=== PATIENT | male | born 1980 | race Caucasian/White ===

== ENCOUNTER 2020-12-29 08:18 | Inpatient (IN) | payer BC, OTHER ==
[~2020-12-29] VITALS: Ht 190.5 cm; Wt 105.6 kg
[2020-12-29] MEDS ORDERED: MIDAZOLAM 5 MG/5 ML (VERSED) VIAL ONE (08:23)
[2020-12-29] MEDS ORDERED: NS IV 1000 ML 1,000 ML ONE ×2 (08:34→09:38)
[2020-12-29] MEDS ORDERED: fentaNYL INJ 100 MCG/2 ML AMP ONE ×2 (08:38→11:08)
[2020-12-29 08:45] VITALS: BP 120/71
[2020-12-29] MEDS ORDERED: proPOfol 200 MG/20 ML (DIPRIVAN) VIAL IV ONE (09:00)
[2020-12-29] MEDS ORDERED: CEFEPIME INJECTION 1,000 MG in WATER (STERILE) FOR INJECTION 10 ML IV ONE (09:00)
[2020-12-29] MEDS ORDERED: DexMEDEtomidine 250 ML DRIP 250 ML IV SCH (09:00)
[2020-12-29] MEDS ORDERED: LACTATED RINGERS 1,000 ML IV ONE (09:00)
[2020-12-29] MEDS ORDERED: MIDAZOLAM 5 MG/5 ML (VERSED) VIAL IVP ONE (09:00)
[2020-12-29] MEDS ORDERED: VANCOMYCIN INJECTION 1,750 MG in NS IV 500 ML 500 ML IV ONE (09:00)
[2020-12-29 09:02] LABS: BASOPHILS % (AUTO) 0 % (0-10); EOSINOPHILS % (AUTO) 0 % (0-10); HEMATOCRIT 36 % (40-54); HEMOGLOBIN 11.8 g/dL (13.3-17.7); LYMPHOCYTES # (AUTO) 2.2 10^3/uL (1.0-4.0); LYMPHOCYTES % (AUTO) 14 % (12-44); MEAN CORPUSCULAR HEMOGLOBIN 29 pg (25-34); MEAN CORPUSCULAR HGB CONC 33 g/dL (32-36); MEAN CORPUSCULAR VOLUME 87 fL (80-99); MEAN PLATELET VOLUME 9.4 fL (9.0-12.2); MONOCYTES # (AUTO) 0.6 10^3/uL (0.0-1.0); MONOCYTES % (AUTO) 4 % (0-12); NEUTROPHILS # (AUTO) 12.1 10^3/uL (1.8-7.8); NEUTROPHILS % (AUTO) 75 % (42-75); PLATELET COUNT 267 10^3/uL (130-400); WHITE BLOOD COUNT 16.2 10^3/uL (4.3-11.0)
[2020-12-29 09:03] LABS: BILIRUBIN,URINE NEGATIVE (NEGATIVE); CLARITY,URINE SL CLOUDY; COLOR,URINE YELLOW; GLUCOSE, URINE (UA) NEGATIVE (NEGATIVE); KETONES,URINE NEGATIVE (NEGATIVE); LEUKOCYTE ESTERASE ,URINE NEGATIVE (NEGATIVE); NITRITE,URINE NEGATIVE (NEGATIVE); PH,URINE 7.5 (5-9); PROTEIN,URINE 2+ (NEGATIVE)
--- NOTE | 2020-12-29 09:03 | ED Respiratory ---
General Chief Complaint: Respiratory Problems Stated Complaint: RESP DISTRESS, COVID + Source: patient Exam Limitations: no limitations History of Present Illness Date Seen by Provider: Dec 29, 2020 Time Seen by Provider: 08:17 Initial Comments Patient presents ER by EMS from his home where his found him gasping for breath and blue. He was diagnosed with COVID-19 on Wednesday, 2 days ago. Patient gives no meaningful history as he is orotracheally intubated. EMS reports that when they arrived his blood sugar was in the 200s and he had a pulse and was agonal breathing so they gave him etomidate and succinylcholine and intubated the patient with an 8 oh ET tube at 23 at the lips. Put a OG tube in him because they were afraid he was trying to vomit. They said [facility]bey arrived before them and had done 2 rounds of CPR but had not put an AED on him. He had a pulse when they arrived. No shocks were ever given. No epinephrine was given. No other known medical history. adds he has no known medical history. He was seen at urgent care on Wednesday and diagnosed and started on azithromycin, dexamethasone and aspirin as well as an inhaler. He watched the kids open her Easter baskets and was doing okay but said he felt tired and was going to go lay down and when she went to check on him she noticed she was blue and breathing with much difficulty. She started compressions and then fire arrived shortly thereafter. She denies that he has had any fevers or vomiting. No other medical history. He had a right elbow fracture in college. He does not follow with a primary care doctor or take supplements. Allergies and Home Medications Allergies Coded Allergies: No Known Drug Allergies (Unverified , 12/29/20) Patient Home Medication List Home Medication List Reviewed: Yes Review of Systems Review of Systems Constitutional: see HPI (No review of systems since the patient has been orotracheally intubated) All Other Systems Reviewed Negative Unless Noted: No Past Ejwzgcx-Sksckr-Mtmgax Hx Patient Social History Alcohol Use: Denies Use Drug of Choice: Denies Smoking Status: Never a Smoker Physical Exam Vital Signs - First Documented 12/29/20 12/29/20 08:19 08:45 Temp 36.7 Pulse 52 Resp 36 B/P (MAP) 131/78 (95) Pulse Ox 97 O2 Delivery Ambu Bag FiO2 30 Capillary Refill : Height: '" Weight: lbs. oz. kg; BMI Method: General Appearance: WD/WN, severe distress Eyes: Bilateral Eye Normal Inspection, Bilateral Eye Other (Bilateral TMs 2 mm nonreactive to light or accommodation) HEENT: PERRL/EOMI, TMs normal, other (Orotracheally intubated with dry oral mucosa) Neck: full range of motion, supple, normal inspection Respiratory: lungs clear, normal breath sounds, respiratory distress Cardiovascular: normal peripheral pulses, regular rate, rhythm, no edema, no murmur, tachycardia Gastrointestinal: soft, abnormal bowel sounds (Absent) Extremities: normal range of motion, normal inspection, no pedal edema, slow capillary refill Neurologic/Psychiatric: other (The cerebral posturing. GCS 3 T) Skin: normal color, warm/dry Focused Exam Sepsis Stage: Severe Sepsis Possible Source: Pulmonary Lactate Level 12/29/20 08:45: Lactic Acid Level 2.94*H Time of Focused Exam: 10:03 Respiratory: Lungs Clear, No Accessory Muscle Use, Respiratory Distress (Ventilated using an orotracheal intubated tube) Cardiovascular: Regular Rate, Rhythm (Heart rate in the 50s), Normal Peripheral Pulses Capillary Refill: Less Than 3 Seconds Peripheral Pulses: 2+ Radial Pulses (R), 2+ Radial Pulses (L) Skin: normal color, warm/dry Lactic Acid Level Laboratory Tests Test 12/29/20 08:45 Lactic Acid Level 2.94 MMOL/L (0.50-2.00) *H Within 3hrs of presentation: Admin fluids (Working on the second liter and then will reevaluate for the third liter. Because of Covid we are being cautious with IV fluids), Admin ABX, Blood cultures prior to ABX's, Focus exam, Lactate level, Other (Precedex was stopped because of bradycardia) Progress/Results/Core Measures Suspected Sepsis SIRS Temperature: Pulse: Respiratory Rate: Laboratory Tests 12/29/20 08:45: White Blood Count 16.2H Blood Pressure / Mean: 12/29/20 08:45: Lactic Acid Level 2.94*H Laboratory Tests 12/29/20 08:45: Creatinine 0.86, INR Comment 1.1, Platelet Count 267, Total Bilirubin 0.3 Results/Orders Lab Results Laboratory Tests Test 12/29/20 08:45 4/4/21 09:10 Range/Units White Blood Count 16.2 H 4.3-11.0 10^3/uL Red Blood Count 4.14 L 4.30-5.52 10^6/uL Hemoglobin 11.8 L 13.3-17.7 g/dL Hematocrit 36 L 40-54 % Mean Corpuscular Volume 87 80-99 fL Mean Corpuscular Hemoglobin 29 25-34 pg Mean Corpuscular Hemoglobin Concent 33 32-36 g/dL Red Cell Distribution Width 12.8 10.0-14.5 % Platelet Count 267 130-400 10^3/uL Mean Platelet Volume 9.4 9.0-12.2 fL Immature Granulocyte % (Auto) 7 % Neutrophils (%) (Auto) 75 42-75 % Lymphocytes (%) (Auto) 14 12-44 % Monocytes (%) (Auto) 4 0-12 % Eosinophils (%) (Auto) 0 0-10 % Basophils (%) (Auto) 0 0-10 % Neutrophils # (Auto) 12.1 H 1.8-7.8 10^3/uL Lymphocytes # (Auto) 2.2 1.0-4.0 10^3/uL Monocytes # (Auto) 0.6 0.0-1.0 10^3/uL Eosinophils # (Auto) 0.0 0.0-0.3 10^3/uL Basophils # (Auto) 0.0 0.0-0.1 10^3/uL Immature Granulocyte # (Auto) 1.2 H 0.0-0.1 10^3/uL Neutrophils % (Manual) 71 % Lymphocytes % (Manual) 13 % Monocytes % (Manual) 0 % Eosinophils % (Manual) 0 % Basophils % (Manual) 0 % Band Neutrophils 16 % Blood Morphology Comment NORMAL Prothrombin Time 14.3 12.2-14.7 SEC INR Comment 1.1 0.8-1.4 Activated Partial Thromboplast Time 32 24-35 SEC D-Dimer 17.76 H 0.00-0.49 UG/ML Urine Color YELLOW Urine Clarity SL CLOUDY Urine pH 7.5 5-9 Urine Specific [place] 1.025 H 1.016-1.022 Urine Protein 2+ H NEGATIVE Urine Glucose (UA) NEGATIVE NEGATIVE Urine Ketones NEGATIVE NEGATIVE Urine Nitrite NEGATIVE NEGATIVE Urine Bilirubin NEGATIVE NEGATIVE Urine Urobilinogen 1.0 < = 1.0 MG/DL Urine Leukocyte Esterase NEGATIVE NEGATIVE Urine RBC (Auto) NEGATIVE NEGATIVE Urine RBC 0-2 /HPF Urine WBC NONE /HPF Urine Squamous Epithelial Cells NONE /HPF Urine Crystals NONE /LPF Urine Bacteria NEGATIVE /HPF Urine Casts PRESENT /LPF Urine Hyaline Casts 2-5 H /LPF Urine Granular Casts RARE /LPF Urine Mucus SMALL H /LPF Urine Culture Indicated CULTURE PENDING Sodium Level 143 135-145 MMOL/L Potassium Level 3.1 L 3.6-5.0 MMOL/L Chloride Level 109 H 98-107 MMOL/L Carbon Dioxide Level 21 21-32 MMOL/L Anion Gap 13 5-14 MMOL/L Blood Urea Nitrogen 17 7-18 MG/DL Creatinine 0.86 0.60-1.30 MG/DL Estimat Glomerular Filtration Rate > 60 BUN/Creatinine Ratio 20 Glucose Level 173 H 70-105 MG/DL Lactic Acid Level 2.94 *H 0.50-2.00 MMOL/L Calcium Level 7.7 L 8.5-10.1 MG/DL Corrected Calcium 8.2 L 8.5-10.1 MG/DL Total Bilirubin 0.3 0.1-1.0 MG/DL Aspartate Amino Transf (AST/SGOT) 647 H 5-34 U/L Alanine Aminotransferase (ALT/SGPT) 483 H 0-55 U/L Alkaline Phosphatase 88 40-136 U/L Troponin I < 0.028 <0.028 NG/ML C-Reactive Protein High Sensitivity 0.52 H 0.00-0.50 MG/DL Total Protein 6.2 L 6.4-8.2 GM/DL Albumin 3.4 3.2-4.5 GM/DL Triglycerides Level 103 <150 MG/DL Procalcitonin 0.01 <0.10 NG/ML Urine Opiates Screen NEGATIVE NEGATIVE Urine Oxycodone Screen NEGATIVE NEGATIVE Urine Methadone Screen NEGATIVE NEGATIVE Urine Propoxyphene Screen NEGATIVE NEGATIVE Urine Barbiturates Screen NEGATIVE NEGATIVE Ur Tricyclic Antidepressants Screen NEGATIVE NEGATIVE Urine Phencyclidine Screen NEGATIVE NEGATIVE Urine Amphetamines Screen NEGATIVE NEGATIVE Urine Methamphetamines Screen NEGATIVE NEGATIVE Urine Benzodiazepines Screen NEGATIVE NEGATIVE Urine Cocaine Screen NEGATIVE NEGATIVE Urine Cannabinoids Screen NEGATIVE NEGATIVE Blood Gas Puncture Site LR Blood Gas Patient Temperature 98.1 Arterial Blood pH 7.33 *L 7.37-7.43 Arterial Blood Partial Pressure CO2 46 H 35-45 MMHG Arterial Blood Partial Pressure O2 69 L 79-93 MMHG Arterial Blood HCO3 24 23-27 MMOL/L Arterial Blood Total CO2 25.1 21.0-31.0 MMOL/L Arterial Blood Oxygen Saturation 90 L 94-100 % Arterial Blood Base Excess -1.5 -2.5-2.5 MMOL/L Ricci Test YES-POS Blood Gas Ventilator Setting YES Blood Gas Inspired Oxygen 21% Micro Results Microbiology 12/29/20 Influenza Types A,B Antigen (LEXX) - Final, Complete My Orders Orders - DICKSON GANT Midazolam Injection (Versed Injection) (12/29/20 08:23) Ns Iv 1000 Ml (Sodium Chloride 0.9%) (12/29/20 08:34) Fentanyl Inj (Sublimaze Injection) (12/29/20 08:38) Chest 1 View, Ap/Pa Only (12/29/20 08:53) Dexamethasone Injection (Decadron Inje (12/29/20 08:47) Cbc With Automated Diff (12/29/20 08:54) Comprehensive Metabolic Panel (12/29/20 08:54) Blood Culture (12/29/20 08:54) Urinalysis (12/29/20 08:54) Urine Culture (12/29/20 08:54) Protime With Inr (12/29/20 08:54) Partial Thromboplastin Time (12/29/20 08:54) Ed Iv/Invasive Line Start (12/29/20 08:54) Ed Iv/Invasive Line Start (12/29/20 08:54) Ekg Tracing (12/29/20 08:54) Troponin I (12/29/20 08:54) Vital Signs Adult Sepsis Patie Q15M (12/29/20 08:54) O2 (12/29/20 08:54) Remove Rings In Anticipation O (12/29/20 08:54) Lactic Acid Analyzer (12/29/20 08:54) Influenza A And B Antigens (12/29/20 08:54) Lactated Ringers (Lr 1000 Ml Iv Solution (12/29/20 09:00) Cefepime Injection (Maxipime Injection) (12/29/20 09:00) Vancomycin Injection (Vancomycin Injecti (12/29/20 09:00) Midazolam Injection (Versed Injection) (12/29/20 09:00) Propofol Injection (Diprivan Injection) (12/29/20 09:00) Dexamethasone Injection (Decadron Inje (12/29/20 09:00) Dexmedetomidine 250 Ml Drip (Precedex Dr (12/29/20 09:00) Covid-19 External Lab Results (12/29/20 08:55) Drug Screen Stat (Urine) (12/29/20 08:57) Propofol Drip (Icu) (Diprivan Drip (Icu) (12/29/20 09:15) Sedation Communication Q48H (12/29/20 09:01) Triglycerides (12/29/20 09:01) Fibrin Degradation Products (12/29/20 09:07) Procalcitonin (Pct) (12/29/20 09:07) Hs C Reactive Protein (12/29/20 09:07) Arterial Blood Gas (12/29/20 09:09) Manual Differential (12/29/20 08:45) Ns Iv 1000 Ml (Sodium Chloride 0.9%) (12/29/20 09:38) Ct Angio Chest W (12/29/20 09:53) Ct Head Wo (12/29/20 09:53) Medications Given in ED Current Medications Medications Dose Ordered Sig/Jaquelin Route Start Time Stop Time Status Last Admin Dose Admin Cefepime HCl 1000 mg/Sterile Water 10 ml @ 200 mls/hr ONCE ONCE IV 12/29/20 09:00 12/29/20 09:02 DC 12/29/20 10:05 200 MLS/HR Dexamethasone Sodium Phosphate 10 mg ONCE ONCE IV 12/29/20 09:00 12/29/20 09:01 DC 12/29/20 09:06 10 MG Fentanyl Citrate 100 mcg STK-MED ONCE .ROUTE 12/29/20 08:38 12/29/20 08:46 DC 12/29/20 09:07 100 MCG Lactated Ringer's 1,000 ml @ 0 mls/hr Q0M ONCE IV 12/29/20 09:00 12/29/20 09:01 DC 12/29/20 09:08 999 MLS/HR Midazolam HCl 5 mg ONCE ONCE IVP 12/29/20 09:00 12/29/20 09:01 DC 12/29/20 09:06 5 MG Sodium Chloride 1,000 ml @ ud STK-MED ONCE .ROUTE 12/29/20 08:34 12/29/20 08:42 DC 12/29/20 09:52 999 MLS/HR Vancomycin HCl 1750 mg/Sodium Chloride 500 ml @ 258 mls/hr ONCE ONCE IV 12/29/20 09:00 12/29/20 10:56 DC 12/29/20 09:18 258 MLS/HR Vital Signs/I&O 12/29/20 12/29/20 12/29/20 12/29/20 08:19 08:45 09:10 09:37 Temp 36.7 Pulse 52 48 Resp 36 B/P (MAP) 131/78 (95) 138/118 Pulse Ox 97 98 100 O2 Delivery Ambu Bag Mechanical Ventilator FiO2 30 30 Capillary Refill : Progress Note #1: Time: 09:06 Progress Note Sepsis, Covid, broad-spectrum antibiotics and Decadron 10 mg. Patient is afebrile at this time. Progress Note #2: Time: 09:47 Progress Note Because of the ABG we increased the tidal volume to 475 and rate 20. FiO2 was increased to 40%. The lactate prompted us to give a total of 3 L. On ultrasound his superior vena cava and IJ were flaccid. Progress Note #3: Time: 11:10 Progress Note While the patient was in CT on his way to ICU a CODE BLUE was called. By the time this provider responded to the CAT scan room patient had return of spontaneous circulation. Suspect he had bradycardia down and was now in the 40s sinus bradycardia. We got a good blood pressure and sent the patient to the ICU with instructions to get an ABG and EKG on arrival. Dr. Sotelo presented to the CAT scan and we discussed the case suspecting that this is a Covid related effect. No evidence on first pass of a pulmonary embolism or bleed in the head. Communication was made with the and the patient's parents by phone. ECG Initial ECG Impression Date: Dec 29, 2020 Initial ECG Impression Time: 08:31 Initial ECG Rate: 59 Initial ECG Rhythm: Normal Sinus Initial ECG Intervals: Normal Initial ECG Impression: Normal Initial ECG Comparisson: No Previous ECG Available Comment Normal sinus rhythm without clinically relevant ST elevation or depression. Diagnostic Imaging Diagonstic Imaging: Xray Plain Films/CT/US/NM/MRI: chest Comments Chest x-ray with bilateral small patchy groundglass appearance consistent with pneumonia atypical possibly Covid. There is a central catheter in good position over the shadow of the right IJ terminating in the superior vena cava at the level of the right atria. There is an NG tube which appears to be in good position. No evidence of pneumothorax. Reviewed: Reviewed by [place] Diagonstic Imaging: CT Plain Films/CT/US/NM/MRI: head Comments [facility], [place] NAME: DANIELA GONZALEZ [facility] REC#: [id number] PT STATUS: ADM IN : 1980 PHYSICIAN: DICKSON GANT MD ADMIT DATE: 12/29/20/ICU Draft Date of Exam:12/29/20 CT HEAD WO EXAMINATION: CT head without contrast. TECHNIQUE: Multiple contiguous axial images were obtained through the brain without the use of intravenous contrast. All CT scans use one or more of the following dose optimizing techniques: automated exposure control, MA and/or KvP adjustment based on a patient size and exam type, or iterative reconstruction. HISTORY: Respiratory arrest COMPARISON: None available. FINDINGS: The ross-white matter differentiation is normal. No mass effect or midline shift. The ventricles are normal in size and configuration. Basilar cisterns are patent. There are no intra- or extra-axial fluid collections. There is no intracranial hemorrhage. The orbits are normal. There is mild bilateral maxillary sinus mucosal disease. Mastoid air cells are clear. No soft tissue abnormality is seen. No osseus lesions or fractures are seen. IMPRESSION: 1. No acute intracranial abnormality. Dictated on workstation # [id number] Dict: 12/29/20 1122 Trans: 12/29/20 1125 [facility] [id number] Interpreted by: SHAI SAAVEDRA MD Electronically signed by: Reviewed: Reviewed by [place] Diagonstic Imaging: CT Plain Films/CT/US/NM/MRI: chest Comments [facility] [place] NAME: DANIELA GONZALEZ [facility] REC#: [id number] PT STATUS: ADM IN : 1980 PHYSICIAN: DICKSON GANT MD ADMIT DATE: 12/29/20/ICU Draft Date of Exam:12/29/20 CT ANGIO CHEST W EXAMINATION: CT angiography of the chest. TECHNIQUE: Contrast enhanced thin section helical images were obtained through the chest with intravenous contrast timed for the optimal opacification of the arterial structures per CTA protocol. Post-processing, reconstructions and interpretation of angiographic images of the vessels was performed. 3D MIP reconstructions were performed and reviewed. All CT scans use one or more of the following dose optimizing techniques: automated exposure control, MA and/or KvP adjustment based on a patient size and exam type, or iterative reconstruction. HISTORY: Shortness of breath, respiratory arrest. COMPARISON: None available. FINDINGS: There is no pulmonary embolism. There are patchy areas of groundglass in the lungs, right greater than left, which are mild in severity. There is mild dependent atelectasis. No consolidation. The patient is intubated and a gastric tube is present. A right internal jugular catheter is present. No pleural effusion. No pneumothorax. No suspicious nodules. There is no axillary or supraclavicular lymphadenopathy. There are prominent hilar lymph nodes measuring 10 mm and smaller, likely reactive. Left ventricle is dilated. There are no coronary artery calcifications. No pericardial effusion. Aorta is normal in caliber. Limited views of the upper abdomen are unremarkable. There are no suspicious osseus lesions. IMPRESSION: 1. Patchy groundglass in the lungs, right greater than left, which are mild in severity and likely related to an infection. 2. No pulmonary embolism. Dictated on workstation # [id number] Dict: 12/29/20 1116 Trans: 12/29/20 1126 [facility] [id number] Interpreted by: SHAI SAAVEDRA MD Electronically signed by: Reviewed: Reviewed by Me Critical Care Note Critical Care Start Time: 08:17 Stop Time: 09:30 Progress When the patient arrived we rapidly got him onto a ventilator at 450 tidal volume, 18 respiratory, PEEP of 5 and 100% FiO2. His end-tidal CO2 was 38 so we weaned his oxygen down to 21% and he maintains a sat of 97%. Labs, urine, septic work-up initiated. We kept the liter of fluids going from EMS and initiated propofol and gave him 5 mg of Versed so he can get a central line placed. Because of the posturing and movement we had to give him a Precedex drip and turned up his propofol to 60 mL/hr. central line was initiated and with the OG tube to suction low intermittent. Departure Communication (Admissions) Time/Spoke to Admitting Phy: 09:08 Dr. Abbott agrees to take the patient to the ICU. Broad-spectrum antibiotics and documented. Time/Spoke to Consulting Phy: 09:48 Discussed the case with eICU. They would like a CT of the head and CT angiogram chest. Impression Primary Impression: COVID-19 Additional Impressions: Sepsis Qualified Codes: A41.9 - Sepsis, unspecified organism; R65.20 - Severe sepsis without septic shock; J96.01 - Acute respiratory failure with hypoxia Acute respiratory failure with hypoxia and hypercapnia Disposition: ADMITTED INPATIENT Condition: Critical Admissions Decision to Admit Reason: Admit from ER (General) Decision to Admit/Date: Dec 29, 2020 Time/Decision to Admit Time: 09:00 Departure-Patient Inst. Referrals: ALDA HARMON MD (PCP/Family) Primary Care Physician DICKSON GANT Dec 29, 2020 09:03
[2020-12-29 09:13] LABS: INR 1.1 (0.8-1.4); PROTHROMBIN TIME PATIENT 14.3 SEC (12.2-14.7)
[2020-12-29 09:15] LABS: AMPHETAMINE SCREEN, URINE NEGATIVE (NEGATIVE); BARBITURATE SCREEN URINE NEGATIVE (NEGATIVE); BENZODIAZEPINES SCREEN URINE NEGATIVE (NEGATIVE); CANNABINOID SCREEN, URINE NEGATIVE (NEGATIVE); COCAINE SCREEN URINE NEGATIVE (NEGATIVE); METHADONE STAT NEGATIVE (NEGATIVE); METHAMPHETAMINE SCREEN URINE S NEGATIVE (NEGATIVE); OPIATE SCREEN URINE NEGATIVE (NEGATIVE); OXYCODONE STAT NEGATIVE (NEGATIVE); PROPOXYPHENE STAT NEGATIVE (NEGATIVE); TRICYCLIC ANTIDEPRESSANTS SCRE NEGATIVE (NEGATIVE)
[2020-12-29] MEDS ORDERED: PROPOFOL DRIP (ICU) 100 ML IV SCH ×2 (09:15→11:45)
[2020-12-29 09:18] LABS: BAND NEUTROPHILS 16 %; BASOPHILS % (MANUAL) 0 %; EOSINOPHILS % (MANUAL) 0 %; LYMPHOCYTES % (MANUAL) 13 %; MONOCYTES % (MANUAL) 0 %; NEUTROPHILS % (MANUAL) 71 %; RBC MORPH NORMAL
[2020-12-29 09:19] LABS: ABG BASE EXCESS -1.5 MMOL/L (-2.5-2.5); ABG OXYGEN SATURATION 90 % (94-100); ABG PCO2 46 MMHG (35-45); ABG PO2 69 MMHG (79-93); ABG TCO2 25.1 MMOL/L (21.0-31.0)
[2020-12-29 09:20] LABS: BACTERIA,URINE NEGATIVE /HPF; GRANULAR CASTS,URINE RARE /LPF; RBC,URINE 0-2 /HPF
[2020-12-29 09:21] LABS: ABG PH 7.33 (7.37-7.43); ALLENS TEST YES-POS
[2020-12-29 09:22] LABS: ALANINE AMINOTRANSFERASE 483 U/L (0-55); ALBUMIN 3.4 GM/DL (3.2-4.5); ALKALINE PHOSPHATASE 88 U/L (40-136); BILIRUBIN,TOTAL 0.3 MG/DL (0.1-1.0); BUN/CREATININE RATIO 20; CALCIUM 7.7 MG/DL (8.5-10.1); CARBON DIOXIDE 21 MMOL/L (21-32); CHLORIDE 109 MMOL/L (98-107); CREATININE SERUM 0.86 MG/DL (0.60-1.30); GFR ESTIMATED > 60; GLUCOSE 173 MG/DL (70-105); POTASSIUM 3.1 MMOL/L (3.6-5.0); SODIUM 143 MMOL/L (135-145); TOTAL PROTEIN 6.2 GM/DL (6.4-8.2)
[2020-12-29 09:22] LABS: INSPIRED O2 21%; VENTILATOR YES
[2020-12-29 09:23] LABS: PATIENT TEMP 98.1
--- NOTE | 2020-12-29 09:42 | Diagnostic Imaging Report ---
INDICATION: Respiratory failure EXAM: Portable chest at 8:52 AM FINDINGS: There is an ET tube projecting over the trachea. NG tube enters the stomach. Right IJ central line tip projects over the SVC. Heart size and pulmonary vascularity are normal. Lungs are clear. There are no effusions or pneumothoraces. IMPRESSION: Negative chest. Dictated by: Dictated on workstation # [id number]
[2020-12-29] MEDS ORDERED: HOLD METFORMIN - RECEIVED CONTRAST 20 ML VIAL IV SCH (10:00)
[2020-12-29] MEDS ORDERED: NS 100 ML (IVPB) BAG IV ONE (10:00)
[2020-12-29] MEDS ORDERED: IOHEXOL 350 MG/ML 100 ML (OMNIPAQUE 350) VIAL IV ONE (10:00)
[2020-12-29] MEDS ORDERED: CATHETER FLUSH 10 ML SYR IV PRN (10:00)
[2020-12-29] MEDS ORDERED: fentaNYL INJ 100 MCG/2 ML AMP IVP ONE (11:15)
--- NOTE | 2020-12-29 11:25 | Diagnostic Imaging Report ---
EXAMINATION: CT head without contrast. TECHNIQUE: Multiple contiguous axial images were obtained through the brain without the use of intravenous contrast. All CT scans use one or more of the following dose optimizing techniques: automated exposure control, MA and/or KvP adjustment based on a patient size and exam type, or iterative reconstruction. HISTORY: Respiratory arrest COMPARISON: None available. FINDINGS: The ross-white matter differentiation is normal. No mass effect or midline shift. The ventricles are normal in size and configuration. Basilar cisterns are patent. There are no intra- or extra-axial fluid collections. There is no intracranial hemorrhage. The orbits are normal. There is mild bilateral maxillary sinus mucosal disease. Mastoid air cells are clear. No soft tissue abnormality is seen. No osseus lesions or fractures are seen. IMPRESSION: 1. No acute intracranial abnormality. Dictated by: Dictated on workstation # [id number]
--- NOTE | 2020-12-29 11:26 | Diagnostic Imaging Report ---
EXAMINATION: CT angiography of the chest. TECHNIQUE: Contrast enhanced thin section helical images were obtained through the chest with intravenous contrast timed for the optimal opacification of the arterial structures per CTA protocol. Post-processing, reconstructions and interpretation of angiographic images of the vessels was performed. 3D MIP reconstructions were performed and reviewed. All CT scans use one or more of the following dose optimizing techniques: automated exposure control, MA and/or KvP adjustment based on a patient size and exam type, or iterative reconstruction. HISTORY: Shortness of breath, respiratory arrest. COMPARISON: None available. FINDINGS: There is no pulmonary embolism. There are patchy areas of groundglass in the lungs, right greater than left, which are mild in severity. There is mild dependent atelectasis. No consolidation. The patient is intubated and a gastric tube is present. A right internal jugular catheter is present. No pleural effusion. No pneumothorax. No suspicious nodules. There is no axillary or supraclavicular lymphadenopathy. There are prominent hilar lymph nodes measuring 10 mm and smaller, likely reactive. Left ventricle is dilated. There are no coronary artery calcifications. No pericardial effusion. Aorta is normal in caliber. Limited views of the upper abdomen are unremarkable. There are no suspicious osseus lesions. IMPRESSION: 1. Patchy groundglass in the lungs, right greater than left, which are mild in severity and likely related to an infection. 2. No pulmonary embolism. Dictated by: Dictated on workstation # [id number]
[2020-12-29 11:27] LABS: ABG BASE EXCESS -2.9 MMOL/L (-2.5-2.5); ABG OXYGEN SATURATION 99 % (94-100); ABG PCO2 39 MMHG (35-45); ABG PH 7.37 (7.37-7.43); ABG PO2 139 MMHG (79-93); ABG TCO2 22.9 MMOL/L (21.0-31.0)
[2020-12-29 11:28] LABS: ALLENS TEST YES-POS; INSPIRED O2 100%; PATIENT TEMP 36.5; VENTILATOR YES
[2020-12-29] MEDS ORDERED: ONDANSETRON 4 MG/2 ML (SDV) Z0FRAN IV PRN (11:30)
[2020-12-29] MEDS ORDERED: ACETAMINOPHEN 325 MG TABLET PO PRN (11:30)
[2020-12-29] MEDS ORDERED: ACETAMINOPHEN 650 MG SUPP (TYLENOL) PR PRN (11:30)
[2020-12-29] MEDS ORDERED: fentaNYL INJ 100 MCG/2 ML AMP IV STA (11:32)
[2020-12-29] MEDS ORDERED: MAG SULFATE 2 GM/50 ML IV PRE-MIX BAG IV STA (11:32)
[2020-12-29] MEDS ORDERED: LORazepam INJ 2 MG/ML (ATIVAN) VIAL IV STA (11:32)
[2020-12-29] MEDS ORDERED: ROCURONIUM 10 MG/ML 5 ML SYRINGE IV STA (11:32)
[2020-12-29] MEDS ORDERED: ENOXAPARIN 100 MG/1 ML (LOVENOX) SYR SC SCH (11:45)
[2020-12-29] MEDS ORDERED: LORazepam INJECTION FOR DRIP 20 MG in D5W 100 ML IVPB 90 ML IV SCH ×2 (11:45→14:30)
[2020-12-29] MEDS ORDERED: SODIUM PHOSPHATE INJ 30 MM in NS (IVPB) 250 ML IV PRN (11:45)
[2020-12-29] MEDS ORDERED: fentaNYL INJ 1,250 MCG in NS (IVPB) 225 ML IV SCH (11:45)
[2020-12-29] MEDS ORDERED: ROCURONIUM 50 MG/5 ML (ZEMURON) VIAL IV PRN (11:45)
[2020-12-29] MEDS ORDERED: LACRI-LUBE OPTHALMIC OINT 3.5 GM TUBE OU PRN (11:45)
[2020-12-29] MEDS ORDERED: proPOfol 500 MG/50 ML (DIPRIVAN) VIAL IV ONE (12:00)
--- NOTE | 2020-12-29 12:10 | Diagnostic Imaging Report ---
EXAMINATION: Chest 1 view HISTORY: Post code, intubation. COMPARISON: 12/29/2020 FINDINGS: Endotracheal tube tip terminates 6 cm above the odalys. Gastric tube tip terminates below the field of view. Right internal jugular central venous catheter tip terminates in the superior vena cava. Defibrillator pads are present. There is mild atelectasis in the lungs. No pleural effusion or pneumothorax. Heart size is normal. IMPRESSION: 1. Mild atelectasis, otherwise clear lungs. Dictated by: Dictated on workstation # [id number]
--- NOTE | 2020-12-29 12:16 | History & Physical-Hospitalist ---
History of Present Illness HPI/Chief Complaint Cory Dukes is a 40 year old male with no known past medical history who presented after being found unresponsive by his at home. He was diagnosed with COVID-19 a couple days prior, on Good Wednesday. His children were having an Easter egg castaneda on Wednesday and he was feeling tired so he went inside to lay down. When his went to check on him, she found him he was blue. She began CPR and EMS was called. The fire department was the first on the scene and continued CPR. When the ambulance arrived they were able to detect a pulse. He was intubated in the field and transferred to [facility] Emergency Room. The workup was essentially unremarkable other than a significantly elevated d-dimer. He was sent to the CT scanner on his way up to the ICU and he again had a CODE BLUE. He was suffering from severe bradycardia at that time. ROSC was obtained prior to any compressions or medications being given. This was when I first evaluated the patient and he was transferred up to the ICU at that time. I quickly scanned the CT scans of his head and chest and did not visualize any large/saddle pulmonary emboli or apparent stroke. Source: RN/MD Exam Limitations: clinical condition Date Seen 12/29/20 Time Seen by a Provider: 11:30 Attending Physician Sasha Limon MD PCP Stacey James MD Referring Physician Date of Admission Dec 29, 2020 at 09:55 Home Medications & Allergies Home Medications Reviewed patient Home Medication Reconciliation performed by pharmacy medication reconciliations mold technician and/or nursing. Patients Allergies have been reviewed. Allergies Allergies Coded Allergies No Known Drug Allergies (Unverified12/29/20) Patient Social History Smoking Status: Never a Smoker Past Medical History none Family Medical History Family Hx: unknown Review of Systems ROS-Unable to Obtain: intubated Constitutional: see HPI Physical Exam Physical Exam Vital Signs Vital Signs - First Documented 12/29/20 12/29/20 12/29/20 08:19 08:45 11:15 Temp 36.7 Pulse 52 Resp 36 B/P (MAP) 131/78 (95) Pulse Ox 97 O2 Delivery Ambu Bag O2 Flow Rate 100.00 FiO2 30 Capillary Refill : Less Than 3 Seconds Height, Weight, BMI Height: '" Weight: lbs. oz. kg; 24.00 BMI Method: General Appearance: No Apparent Distress, WD/WN, Other (intubated and sedated) HEENT: Other (endotracheal tube in place) Respiratory: Lungs Clear, No Respiratory Distress, Other (intubated and mechanically ventilated) Cardiovascular: No Murmur, Normal Peripheral Pulses, Bradycardia (regular rhythm) Gastrointestinal: Normal Bowel Sounds, Soft Extremity: Normal Capillary Refill, Normal Inspection, No Pedal Edema Neurologic/Psychiatric: Other (sedated) Skin: Normal Color, Warm/Dry Results Results/Procedures Labs Laboratory Tests 12/30/20 23:39 12/30/20 23:40 12/31/20 00:22 12/31/20 02:00 12/31/20 05:00 12/31/20 12:45 12/31/20 17:30 01/01/21 03:05 01/01/21 08:07 01/01/21 15:45 Patient resulted labs reviewed. Imaging: Reviewed Imaging Films, Reviewed Imaging Report Assessment/Plan Admission Diagnosis Cardiac arrest Admission Status: Inpatient Order (span 2 midnights) Reason for Inpatient Admission: Cardiac arrest requiring ventilator Assessment and Plan Cardiac arrest Acute respiratory failure due to COVID-19 Endotracheally intubated Hypercoagulable state associated with COVID-19 s/p cardiac arrest x2 Awaiting official reads on CT head and chest Pulmonology/TeleICU consulted, appreciate assistance Weaning sedation to assess for responsiveness Considering [facility] therapeutic hypothermia post-cardiac arrest Started on Decadron Begin therapeutic Lovenox if CT head negative Repeat ABG Ventilator settings per eICU Critical Care Critically Ill Patient Diagnosis/Problems Diagnosis/Problems (1) Cardiac arrest Status: Acute (2) Acute respiratory failure due to COVID-19 Status: Acute (3) Hypercoagulable state associated with COVID-19 Status: Acute Supervisory-Addendum Brief Verification & Attestation Participated in pt care: other Personally performed: other Care discussed with: other Procedures: n/a, other n/a SASHA LIMON MD Dec 29, 2020 12:16
[2020-12-29 12:22] LABS: BASOPHILS % (AUTO) 0 % (0-10); EOSINOPHILS % (AUTO) 0 % (0-10); HEMATOCRIT 37 % (40-54); HEMOGLOBIN 12.1 g/dL (13.3-17.7); LYMPHOCYTES # (AUTO) 0.7 10^3/uL (1.0-4.0); LYMPHOCYTES % (AUTO) 9 % (12-44); MEAN CORPUSCULAR HEMOGLOBIN 29 pg (25-34); MEAN CORPUSCULAR HGB CONC 33 g/dL (32-36); MEAN CORPUSCULAR VOLUME 88 fL (80-99); MEAN PLATELET VOLUME 9.3 fL (9.0-12.2); MONOCYTES # (AUTO) 0.3 10^3/uL (0.0-1.0); MONOCYTES % (AUTO) 4 % (0-12); NEUTROPHILS # (AUTO) 6.8 10^3/uL (1.8-7.8); NEUTROPHILS % (AUTO) 84 % (42-75); PLATELET COUNT 237 10^3/uL (130-400); WHITE BLOOD COUNT 8.1 10^3/uL (4.3-11.0)
[2020-12-29] MEDS: PROPOFOL DRIP (ICU) 100 ML IV SCH ×3 (12:25→20:09)
[2020-12-29 12:44] LABS: ALANINE AMINOTRANSFERASE 481 U/L (0-55); ALBUMIN 3.4 GM/DL (3.2-4.5); ALKALINE PHOSPHATASE 83 U/L (40-136); AMYLASE 61 U/L (25-125); BILIRUBIN,DIRECT 0.2 MG/DL (0.0-0.3); BILIRUBIN,INDIRECT 0.2 MG/DL; BILIRUBIN,TOTAL 0.4 MG/DL (0.1-1.0); CREATINE KINASE 62 U/L (30-200); LIPASE 32 U/L (8-78); MAGNESIUM 1.8 MG/DL (1.6-2.4); TOTAL PROTEIN 6.2 GM/DL (6.4-8.2); TRIGLYCERIDES 95 MG/DL (<150)
[2020-12-29] MEDS: LACTATED RINGERS 1,000 ML IV SCH ×3 (12:50→20:01)
[2020-12-29 12:55] LABS: FIBRINOGEN 319 MG/DL (221-496); INR 1.1 (0.8-1.4); PARTIAL THROMBOPLASTIN TIME 30 SEC (24-35); PROTHROMBIN TIME PATIENT 14.6 SEC (12.2-14.7)
[2020-12-29 13:06] LABS: FIBRIN DEGRADATION PRODUCTS > 20.00 UG/ML (0.00-0.49)
[2020-12-29 13:09] LABS: PHOSPHORUS 0.8 MG/DL (2.3-4.7)
--- NOTE | 2020-12-29 13:10 | Anesthesia-Procedure Note ---
Procedures/Interventions Procedure Start/Stop/Diagnosis Date of Procedure: Dec 29, 2020 Start Time: 12:50 Stop Time: 13:00 Arterial Line Arterial Line Catheter: 20G Type: Radial Location: Right Procedure: prepped, draped in sterile fashion, 1% lidocaine used to numb region, good wave-form was obtained, patient tolerated procedure well, no immediate complications, post procedure area cleaned, post procedure dressing applied SABIHA LOPES CRNA Dec 29, 2020 13:10
[2020-12-29] MEDS: MAGNESIUM SULFATE DRIP 500 ML IV SCH (13:14)
[2020-12-29] MEDS: POTASSIUM CL 10MEQ/50ML IVPB 50 ML IV SCH ×4 (13:32→16:33)
[2020-12-29] MEDS: LACRI-LUBE OPTHALMIC OINT 3.5 GM TUBE OU SCH ×3 (13:33→23:06)
[2020-12-29] MEDS: CEFEPIME 1,000 MG/SWFI 10 ML IV PUSH IV SCH ×6 (13:49→23:07)
[2020-12-29] MEDS ORDERED: NS IV NR (14:00)
[2020-12-29] MEDS ORDERED: ENOXAPARIN 60 MG/0.6 ML (LOVENOX) SYR SC ONE (14:00)
[2020-12-29] MEDS ORDERED: CALCIUM CHLORIDE IV NR (14:00)
[2020-12-29] MEDS ORDERED: CALCIUM CHLORIDE 1 GM/10 ML (IMS) SYR IV ONE (14:00)
[2020-12-29] MEDS: busPIRone 15 MG (BUSPAR) TABLET GT SCH ×2 (14:10→21:07)
[2020-12-29] MEDS ORDERED: LORazepam INJ 2 MG/ML (ATIVAN) VIAL ONE (14:11)
[2020-12-29] MEDS ORDERED: LORazepam INJ 2 MG/ML (ATIVAN) VIAL IVP PRN (14:30)
[2020-12-29 14:50] VITALS: BP 116/81
[2020-12-29] MEDS: LORazepam INJECTION FOR DRIP 20 MG in D5W 100 ML IVPB 90 ML IV SCH ×2 (15:13→20:11)
[2020-12-29] MEDS: fentaNYL 1,250 MCG/NS 250 ML DRIP IV SCH ×2 (15:39→18:19)
[2020-12-29] MEDS ORDERED: RT-ALBUTEROL INHALER HFA (VENTOLIN HFA) 18 GM IH PRN (16:45)
[2020-12-29] MEDS: PANTOPRAZOLE 40 MG (PROTONIX) VIAL IV SCH (17:06)
[2020-12-29] MEDS: VANCOMYCIN 1 GM/NS 250 ML IVPB IV SCH ×2 (17:11)
[2020-12-29 17:44] LABS: BASOPHILS % (AUTO) 0 % (0-10); EOSINOPHILS % (AUTO) 0 % (0-10); HEMATOCRIT 35 % (40-54); HEMOGLOBIN 11.3 g/dL (13.3-17.7); LYMPHOCYTES % (AUTO) 18 % (12-44); MEAN CORPUSCULAR HEMOGLOBIN 28 pg (25-34); MEAN CORPUSCULAR HGB CONC 32 g/dL (32-36); MEAN CORPUSCULAR VOLUME 88 fL (80-99); MEAN PLATELET VOLUME 9.6 fL (9.0-12.2); MONOCYTES # (AUTO) 0.5 10^3/uL (0.0-1.0); MONOCYTES % (AUTO) 9 % (0-12); NEUTROPHILS # (AUTO) 3.9 10^3/uL (1.8-7.8); NEUTROPHILS % (AUTO) 72 % (42-75); PLATELET COUNT 228 10^3/uL (130-400); WHITE BLOOD COUNT 5.5 10^3/uL (4.3-11.0)
[2020-12-29 17:53] LABS: INR 1.1 (0.8-1.4); PROTHROMBIN TIME PATIENT 14.5 SEC (12.2-14.7)
[2020-12-29 18:02] LABS: BUN/CREATININE RATIO 18; CALCIUM 7.6 MG/DL (8.5-10.1); CARBON DIOXIDE 21 MMOL/L (21-32); CHLORIDE 112 MMOL/L (98-107); CREATININE SERUM 0.65 MG/DL (0.60-1.30); GFR ESTIMATED > 60; GLUCOSE 159 MG/DL (70-105); MAGNESIUM 3.6 MG/DL (1.6-2.4); PHOSPHORUS 2.7 MG/DL (2.3-4.7); POTASSIUM 4.5 MMOL/L (3.6-5.0); SODIUM 142 MMOL/L (135-145)
[2020-12-29 18:47] LABS: ALBUMIN 3.2 GM/DL (3.2-4.5)
[2020-12-29] MEDS: RT-ALBUTEROL INHALER HFA (VENTOLIN HFA) 18 GM IH SCH ×2 (18:55→22:19)
[2020-12-29 18:59] VITALS: BP 115/77
[2020-12-29 22:19] VITALS: BP 115/77
[2020-12-29 23:41] LABS: BASOPHILS % (AUTO) 0 % (0-10); EOSINOPHILS % (AUTO) 0 % (0-10); HEMATOCRIT 35 % (40-54); HEMOGLOBIN 11.6 g/dL (13.3-17.7); LYMPHOCYTES # (AUTO) 1.3 10^3/uL (1.0-4.0); LYMPHOCYTES % (AUTO) 26 % (12-44); MEAN CORPUSCULAR HEMOGLOBIN 29 pg (25-34); MEAN CORPUSCULAR HGB CONC 33 g/dL (32-36); MEAN CORPUSCULAR VOLUME 87 fL (80-99); MEAN PLATELET VOLUME 9.7 fL (9.0-12.2); MONOCYTES # (AUTO) 0.7 10^3/uL (0.0-1.0); MONOCYTES % (AUTO) 14 % (0-12); NEUTROPHILS # (AUTO) 2.9 10^3/uL (1.8-7.8); NEUTROPHILS % (AUTO) 60 % (42-75); PLATELET COUNT 212 10^3/uL (130-400); WHITE BLOOD COUNT 4.8 10^3/uL (4.3-11.0)
[2020-12-30 00:04] LABS: ALANINE AMINOTRANSFERASE 384 U/L (0-55); ALBUMIN 3.3 GM/DL (3.2-4.5); ALKALINE PHOSPHATASE 76 U/L (40-136); BILIRUBIN,TOTAL 0.3 MG/DL (0.1-1.0); BUN/CREATININE RATIO 15; CALCIUM 7.6 MG/DL (8.5-10.1); CARBON DIOXIDE 20 MMOL/L (21-32); CHLORIDE 114 MMOL/L (98-107); GFR ESTIMATED > 60; GLUCOSE 168 MG/DL (70-105); MAGNESIUM 4.6 MG/DL (1.6-2.4); POTASSIUM 3.9 MMOL/L (3.6-5.0); SODIUM 144 MMOL/L (135-145); TOTAL PROTEIN 6.1 GM/DL (6.4-8.2)
[2020-12-30] MEDS ORDERED: CALCIUM CHLORIDE 1 GM/10 ML (IMS) SYR ONE (00:21)
[2020-12-30] MEDS ORDERED: NS (IVPB) 100 ML ONE (00:21)
[2020-12-30] MEDS: MIDAZOLAM DRIP PRE-MIX 100 ML IV SCH (00:37)
[2020-12-30] MEDS: CALCIUM CHLORIDE 10% INJECTION 1 GM in NS (IVPB) 100 ML IV PRN ×2 (00:42→13:25)
[2020-12-30] MEDS: VANCOMYCIN 1 GM/NS 250 ML IVPB IV SCH ×2 (00:46)
[2020-12-30] MEDS: PROPOFOL DRIP (ICU) 100 ML IV SCH ×5 (00:57→20:31)
[2020-12-30] MEDS ORDERED: SODIUM PHOSPHATE INJ ONE (01:30)
[2020-12-30] MEDS ORDERED: NS INJ ONE (01:30)
[2020-12-30] MEDS ORDERED: ATROPINE INJECTION 1 MG/10 ML SYR (ABBOTT) ONE ×3 (01:32→14:05)
[2020-12-30] MEDS: LACTATED RINGERS 1,000 ML IV SCH ×4 (01:59→21:32)
[2020-12-30] MEDS: LORazepam INJECTION FOR DRIP 20 MG in D5W 100 ML IVPB 90 ML IV SCH (02:00)
[2020-12-30] MEDS: RT-ALBUTEROL INHALER HFA (VENTOLIN HFA) 18 GM IH SCH ×6 (02:45→22:45)
[2020-12-30 02:46] VITALS: BP 154/84
--- NOTE | 2020-12-30 03:56 | Pulmonary Consultation ---
History of Present Illness History of Present Illness Date Seen by Provider: Dec 30, 2020 Time Seen by Provider: 03:49 Date of Admission History of Present Illness 40yo with recent DX of COVID 19 Wednesday 12/27 presented to ED 12/29 via EMS secondary to cardiac arrest Pt was found unresponsive by . Unknown down time. BS was 200's upon EMS arrival. PT was intubated per EMS prior to arrival. started CPR prior to EMS arrival. PT had 2 rounds of CPR upon EMS/fire dept arrival. On Wednesday pt was started on Azithromycin, and dexamethasone at Urgent care. All information obtained from chart. Allergies and Home Medications Allergies Coded Allergies: No Known Drug Allergies (Unverified , 12/29/20) Past Pscptdb-Mxohjs-Wtiowh Hx Patient Social History Alcohol Use: Denies Use Drug of Choice: Denies Smoking Status: Never a Smoker Recent Infectious Disease Expo: Yes Have you traveled recently?: Unable to obtain Alcohol Use?: No Immunizations Up To Date Date of Influenza Vaccine: Jun 30, 2020 Review of Systems Time Seen by Provider: 06:32 Sepsis Event Evaluation Height, Weight, BMI Height: '" Weight: lbs. oz. kg; 26.64 BMI Method: Exam Exam Vital Signs Date Time Temp Pulse Resp B/P (MAP) Pulse Ox O2 Delivery O2 Flow Rate FiO2 12/30/20 03:15 33.5 12/30/20 03:00 33.4 12/30/20 03:00 33.5 49 16 100 Mechanical Ventilator 28.00 12/30/20 02:46 49 26 97 28 12/30/20 02:43 33.4 12/30/20 02:32 33.2 12/30/20 02:25 33.1 12/30/20 02:10 32.9 12/30/20 02:00 32.8 42 16 100 Mechanical Ventilator 28.00 12/30/20 02:00 43 16 185/98 12/30/20 01:55 32.8 12/30/20 01:40 32.7 12/30/20 01:20 32.6 12/30/20 01:00 32.7 33 16 100 Mechanical Ventilator 28.00 12/30/20 00:57 33 133/72 12/30/20 00:45 32.7 12/30/20 00:37 34 16 123/72 12/30/20 00:30 32.7 4/5/21 00:15 32.8 12/30/20 00:00 32.9 35 16 100 Mechanical Ventilator 28.00 12/29/20 23:56 32.9 12/29/20 23:40 32.9 12/29/20 23:35 100 Mechanical Ventilator 28 12/29/20 23:29 33.0 12/29/20 23:25 33.1 12/29/20 23:10 33.1 12/29/20 23:00 33.2 34 16 100 Mechanical Ventilator 28.00 12/29/20 22:55 33.2 12/29/20 22:40 33.3 12/29/20 22:25 33.4 12/29/20 22:19 54 16 100 28 12/29/20 22:10 33.5 12/29/20 22:00 33.6 34 16 100 Mechanical Ventilator 28.00 12/29/20 21:55 33.6 12/29/20 21:40 33.7 12/29/20 21:25 33.8 12/29/20 21:10 33.9 12/29/20 21:00 33.9 37 16 100 Mechanical Ventilator 28.00 12/29/20 20:55 34.0 12/29/20 20:40 34.1 12/29/20 20:25 34.2 12/29/20 20:11 38 16 112/75 12/29/20 20:10 34.4 12/29/20 20:09 38 116/76 12/29/20 20:00 34.4 38 16 100 Mechanical Ventilator 28.00 12/29/20 19:55 34.5 12/29/20 19:52 34.5 12/29/20 19:45 100 Mechanical Ventilator 28 12/29/20 19:40 34.6 12/29/20 19:25 34.6 12/29/20 19:10 34.7 12/29/20 19:00 34.6 39 16 100 Mechanical Ventilator 28.00 12/29/20 19:00 40 12/29/20 18:59 41 16 100 28 12/29/20 18:55 34.9 12/29/20 18:40 34.9 12/29/20 18:25 35.0 12/29/20 18:10 35.0 12/29/20 18:00 42 16 99 Mechanical Ventilator 28.00 12/29/20 17:55 35.1 12/29/20 17:40 35.2 12/29/20 17:25 35.3 12/29/20 17:20 Mechanical Ventilator 28.00 12/29/20 17:10 35.4 12/29/20 17:00 41 16 100 Mechanical Ventilator 60.00 12/29/20 16:55 35.5 12/29/20 16:40 35.6 12/29/20 16:33 35.7 43 100 28 12/29/20 16:25 35.7 12/29/20 16:16 100 Mechanical Ventilator 28 12/29/20 16:10 35.7 12/29/20 16:00 43 16 100 Mechanical Ventilator 60.00 12/29/20 15:55 35.8 12/29/20 15:40 35.8 12/29/20 15:25 35.8 12/29/20 15:13 46 22 116/81 12/29/20 15:12 46 116/81 12/29/20 15:10 35.9 12/29/20 15:00 45 18 93 Mechanical Ventilator 60.00 12/29/20 14:55 36.1 12/29/20 14:50 46 22 97 28 12/29/20 14:40 36.2 12/29/20 14:28 60.00 12/29/20 14:25 36.4 12/29/20 14:13 70.00 12/29/20 14:10 36.5 12/29/20 14:00 48 16 100 Mechanical Ventilator 85.00 Automatic Cuff 12/29/20 13:55 36.7 12/29/20 13:40 36.7 12/29/20 13:35 53 12/29/20 13:30 85.00 12/29/20 13:25 36.7 12/29/20 13:10 36.8 12/29/20 13:00 53 18 100 Mechanical Ventilator 100.00 12/29/20 12:55 36.7 12/29/20 12:40 36.7 12/29/20 12:25 54 141/99 12/29/20 12:00 54 12 141/99 (113) 100 Mechanical Ventilator 100.00 12/29/20 11:15 47 18 109/79 (89) 97 Mechanical Ventilator 100.00 12/29/20 11:15 Mechanical Ventilator 12/29/20 10:29 47 20 158/107 99 12/29/20 09:37 100 Mechanical Ventilator 30 12/29/20 09:10 48 138/118 12/29/20 08:45 52 36 98 30 12/29/20 08:19 36.7 131/78 (95) 97 Ambu Bag I & O 12/30/20 07:00 Intake Total 5770 ml Output Total 5015 ml Balance 755 ml Height & Weight Height: '" Weight: lbs. oz. kg; 26.64 BMI Method: Respiratory: Lungs Clear, No Accessory Muscle Use, Respiratory Distress (Ventilated using an orotracheal intubated tube) Cardiovascular: Regular Rate, Rhythm (Heart rate in the 50s), Normal Peripheral Pulses Capillary Refill: Greater Than 3 Seconds Peripheral Pulses: 2+ Radial Pulses (R), 2+ Radial Pulses (L) Gastrointestinal: soft, abnormal bowel sounds (Absent) Results Lab Laboratory Tests 12/29/20 08:45 12/29/20 12:05 12/29/20 17:35 12/29/20 23:30 12/30/20 01:35 Assessment/Plan Assessment/Plan Acute respiratory failure -Propofol 40, fentanyl 80, Versed 3, Ativan 4 -D/C Ativan and monitor for shivering -Vent intubated 12/29 -VT 500, 16, 8, Fi02 28 COVID 19 -CVP S/p Cardiac arrest x 2 -Currently on Artic Sun -Artic Sun was started at 1230pm 12/29 -EICU managed pt through the night -Head CT is negative -CT of chest shows COVID changes Hypophos -Repeat Labs pending Bradycardic - With normal BP (not requiring pressors) -Increase goal hypothermia temp to 36 deg C -D/C decadron -Monitor -s/p Atropine x 1 -Consult cardiology -BP has been stable Sepsis -Cefepime and D/C Vanco -Repeat PCT - IVF - LR 150 -Timmons cultures -Not requiring pressors Shock liver -Monitor JARVIS BROOKS DO Dec 30, 2020 03:56
[2020-12-30 04:14] LABS: ABG BASE EXCESS -1.8 MMOL/L (-2.5-2.5); ABG OXYGEN SATURATION 97 % (94-100); ABG PCO2 31 MMHG (35-45); ABG PH 7.46 (7.37-7.43); ABG PO2 85 MMHG (79-93); ABG TCO2 23.2 MMOL/L (21.0-31.0)
[2020-12-30 04:16] LABS: ALLENS TEST ART LINE
[2020-12-30 04:17] LABS: INSPIRED O2 28%; VENTILATOR YES
[2020-12-30] MEDS: POTASSIUM CL 10MEQ/50ML IVPB 50 ML IV SCH ×6 (04:19→20:43)
[2020-12-30] MEDS: LACRI-LUBE OPTHALMIC OINT 3.5 GM TUBE OU SCH ×3 (04:58→17:23)
[2020-12-30] MEDS: CEFEPIME 1,000 MG/SWFI 10 ML IV PUSH IV SCH ×6 (05:02→17:23)
[2020-12-30] MEDS: busPIRone 15 MG (BUSPAR) TABLET GT SCH ×3 (05:02→22:54)
[2020-12-30 05:46] LABS: BASOPHILS % (AUTO) 0 % (0-10); EOSINOPHILS % (AUTO) 0 % (0-10); HEMATOCRIT 33 % (40-54); HEMOGLOBIN 10.8 g/dL (13.3-17.7); LYMPHOCYTES % (AUTO) 17 % (12-44); MEAN CORPUSCULAR HEMOGLOBIN 28 pg (25-34); MEAN CORPUSCULAR HGB CONC 33 g/dL (32-36); MEAN CORPUSCULAR VOLUME 86 fL (80-99); MEAN PLATELET VOLUME 9.8 fL (9.0-12.2); MONOCYTES # (AUTO) 0.6 10^3/uL (0.0-1.0); MONOCYTES % (AUTO) 11 % (0-12); NEUTROPHILS # (AUTO) 4.3 10^3/uL (1.8-7.8); NEUTROPHILS % (AUTO) 72 % (42-75); PLATELET COUNT 208 10^3/uL (130-400)
[2020-12-30 05:59] LABS: INR 1.1 (0.8-1.4); PROTHROMBIN TIME PATIENT 14.1 SEC (12.2-14.7)
[2020-12-30 06:04] LABS: ALANINE AMINOTRANSFERASE 328 U/L (0-55); ALKALINE PHOSPHATASE 72 U/L (40-136); BILIRUBIN,TOTAL 0.2 MG/DL (0.1-1.0); BUN/CREATININE RATIO 16; CALCIUM 7.3 MG/DL (8.5-10.1); CARBON DIOXIDE 21 MMOL/L (21-32); CHLORIDE 114 MMOL/L (98-107); CREATININE SERUM 0.57 MG/DL (0.60-1.30); GFR ESTIMATED > 60; GLUCOSE 155 MG/DL (70-105); MAGNESIUM 2.8 MG/DL (1.6-2.4); PHOSPHORUS 3.8 MG/DL (2.3-4.7); POTASSIUM 3.8 MMOL/L (3.6-5.0); SODIUM 144 MMOL/L (135-145); TOTAL PROTEIN 5.6 GM/DL (6.4-8.2)
[2020-12-30] MEDS ORDERED: ATROPINE INJECTION 1 MG/10 ML SYR (ABBOTT) IV PRN (06:50)
[2020-12-30 07:00] VITALS: BP 152/83
[2020-12-30] MEDS ORDERED: CALCIUM GLUCONATE IV ONE ×2 (07:00→08:00)
[2020-12-30] MEDS ORDERED: CALCIUM CHLORIDE 1 GM/10 ML (IMS) SYR IV ONE (07:00)
[2020-12-30] MEDS ORDERED: ATROPINE INJECTION 1 MG/10 ML SYR (ABBOTT) IV NR (07:00)
[2020-12-30] MEDS ORDERED: NS IV ONE ×2 (07:00→08:00)
[2020-12-30] MEDS: fentaNYL 1,250 MCG/NS 250 ML DRIP IV SCH (07:52)
[2020-12-30] MEDS: PANTOPRAZOLE 40 MG (PROTONIX) VIAL IV SCH (07:53)
--- NOTE | 2020-12-30 08:20 | Physical Therapy Progress Note ---
Therapy Progress Note Patient currently sedated and intubated. PT will continue to monitor patient status and initiate treatment when patient is medically stable and able to actively participate with skilled therapy. MARLENI AC PT Dec 30, 2020 08:20
--- NOTE | 2020-12-30 09:33 | Occ Therapy Progress Note ---
Therapy Progress Note OT order received, chart reviewed. Pt. currently on mechanical ventilation and sedation. Will continue to monitor. Will need new OT orders when pt. is medically stable. [id number] FEDE JANSEN OT Dec 30, 2020 09:33
[2020-12-30] MEDS ORDERED: ASPI-999 PO (09:53)
[2020-12-30] MEDS ORDERED: AZIT250T12 PO (09:53)
[2020-12-30] MEDS ORDERED: RT-ALBUINH INH (09:53)
[2020-12-30] MEDS ORDERED: DEXA4TAB PO (09:53)
[2020-12-30 09:58] LABS: ABG BASE EXCESS -1.6 MMOL/L (-2.5-2.5); ABG OXYGEN SATURATION 93 % (94-100); ABG PCO2 35 MMHG (35-45); ABG PH 7.42 (7.37-7.43); ABG PO2 66 MMHG (79-93); ABG TCO2 23.8 MMOL/L (21.0-31.0)
[2020-12-30] MEDS ORDERED: IBUP-2473 PO (09:58)
[2020-12-30 10:00] LABS: ALLENS TEST YES-POS; INSPIRED O2 21%; PATIENT TEMP 35.1; VENTILATOR YES
[2020-12-30 10:52] VITALS: BP 139/63
[2020-12-30] MEDS: ROCURONIUM 10 MG/ML 5 ML SYRINGE IV PRN ×2 (11:25→13:43)
[2020-12-30 11:31] LABS: BASOPHILS % (AUTO) 0 % (0-10); EOSINOPHILS % (AUTO) 0 % (0-10); HEMATOCRIT 32 % (40-54); HEMOGLOBIN 10.8 g/dL (13.3-17.7); LYMPHOCYTES # (AUTO) 0.7 10^3/uL (1.0-4.0); LYMPHOCYTES % (AUTO) 9 % (12-44); MEAN CORPUSCULAR HEMOGLOBIN 29 pg (25-34); MEAN CORPUSCULAR HGB CONC 34 g/dL (32-36); MEAN CORPUSCULAR VOLUME 86 fL (80-99); MEAN PLATELET VOLUME 9.7 fL (9.0-12.2); MONOCYTES # (AUTO) 0.4 10^3/uL (0.0-1.0); MONOCYTES % (AUTO) 5 % (0-12); NEUTROPHILS # (AUTO) 7.2 10^3/uL (1.8-7.8); NEUTROPHILS % (AUTO) 86 % (42-75); PLATELET COUNT 222 10^3/uL (130-400); WHITE BLOOD COUNT 8.4 10^3/uL (4.3-11.0)
[2020-12-30 11:49] LABS: PROTHROMBIN TIME PATIENT 13.9 SEC (12.2-14.7)
[2020-12-30 12:01] LABS: BAND NEUTROPHILS 8 %; BASOPHILS % (MANUAL) 0 %; ELLIPT/OVALOCYTES SLIGHT; EOSINOPHILS % (MANUAL) 0 %; LYMPHOCYTES % (MANUAL) 9 %; MONOCYTES % (MANUAL) 8 %; NEUTROPHILS % (MANUAL) 75 %
[2020-12-30 12:04] LABS: BUN/CREATININE RATIO 15; CALCIUM 7.5 MG/DL (8.5-10.1); CARBON DIOXIDE 20 MMOL/L (21-32); CHLORIDE 113 MMOL/L (98-107); CREATININE SERUM 0.62 MG/DL (0.60-1.30); GFR ESTIMATED > 60; GLUCOSE 154 MG/DL (70-105); MAGNESIUM 3.8 MG/DL (1.6-2.4); PHOSPHORUS 2.7 MG/DL (2.3-4.7); SODIUM 143 MMOL/L (135-145)
[2020-12-30] MEDS: MAGNESIUM SULFATE DRIP 500 ML IV SCH (13:22)
[2020-12-30 14:12] LABS: CARBON DIOXIDE 20 MMOL/L (21-32); CHLORIDE 113 MMOL/L (98-107)
[2020-12-30 14:17] VITALS: BP 161/84
[2020-12-30 18:05] LABS: BASOPHILS % (AUTO) 0 % (0-10); EOSINOPHILS % (AUTO) 0 % (0-10); HEMATOCRIT 32 % (40-54); HEMOGLOBIN 10.7 g/dL (13.3-17.7); LYMPHOCYTES # (AUTO) 0.8 10^3/uL (1.0-4.0); LYMPHOCYTES % (AUTO) 11 % (12-44); MEAN CORPUSCULAR HEMOGLOBIN 29 pg (25-34); MEAN CORPUSCULAR HGB CONC 33 g/dL (32-36); MEAN CORPUSCULAR VOLUME 86 fL (80-99); MEAN PLATELET VOLUME 10.2 fL (9.0-12.2); MONOCYTES # (AUTO) 0.5 10^3/uL (0.0-1.0); MONOCYTES % (AUTO) 7 % (0-12); NEUTROPHILS # (AUTO) 6.3 10^3/uL (1.8-7.8); NEUTROPHILS % (AUTO) 81 % (42-75); PLATELET COUNT 243 10^3/uL (130-400); WHITE BLOOD COUNT 7.7 10^3/uL (4.3-11.0)
[2020-12-30 18:31] LABS: ALBUMIN 2.9 GM/DL (3.2-4.5); BUN/CREATININE RATIO 13; CALCIUM 7.8 MG/DL (8.5-10.1); GFR ESTIMATED > 60; GLUCOSE 144 MG/DL (70-105); PHOSPHORUS 2.6 MG/DL (2.3-4.7); SODIUM 145 MMOL/L (135-145)
[2020-12-30 18:45] VITALS: BP 127/72
[2020-12-30 19:09] LABS: INR 1.1 (0.8-1.4); PROTHROMBIN TIME PATIENT 14.1 SEC (12.2-14.7)
--- NOTE | 2020-12-30 19:50 | Consultation-Cardiology ---
HPI-Cardiology Cardiology Consultation Date of Consultation 12/30/20 Date of Admission Time Seen by Provider: 19:46 Indication: Bradycardia HPI 40 years old gentleman recently diagnosed with COVID-19, brought to the hospital after he was found by his unresponsive and cyanotic. She started compression and CPR on him, EMS brought him to the hospital, he is ventilator dependent unable to provide any history, noted to have few episodes of bradycardia and persistently bradycardic receiving intermittent atropine Home Medications & Allergies Allergies: Coded Allergies: No Known Drug Allergies (Unverified , 12/29/20) Home Medication List Reviewed: Yes EVH-Eanjbr-Dmfxsp Hx Patient Social History Drug of Choice: Denies Smoking Status: Never a Smoker Have you traveled recently?: Unable to obtain Alcohol Use?: No Immunizations Up To Date Date of Influenza Vaccine: Jun 30, 2020 Past Medical History No known past medical history Family Medical History Family Medical Hx Noncontributory Review of Systems-General Review of Systems Constitutional: other (Unable to provide any review of system) All Other Systems Reviewed Negative Unless Noted: No Reviewed Test Results Reviewed Test Results Lab Laboratory Tests Test 12/29/20 19:58 12/29/20 21:04 12/29/20 22:00 12/29/20 23:04 Range/Units Glucometer 117 H 133 H 155 H 163 H 70-110 MG/DL Test 12/29/20 23:30 12/29/20 23:55 12/30/20 00:59 12/30/20 01:35 Range/Units White Blood Count 4.8 4.3-11.0 10^3/uL Red Blood Count 4.02 L 4.30-5.52 10^6/uL Hemoglobin 11.6 L 13.3-17.7 g/dL Hematocrit 35 L 40-54 % Mean Corpuscular Volume 87 80-99 fL Mean Corpuscular Hemoglobin 29 25-34 pg Mean Corpuscular Hemoglobin Concent 33 32-36 g/dL Red Cell Distribution Width 13.1 10.0-14.5 % Platelet Count 212 130-400 10^3/uL Mean Platelet Volume 9.7 9.0-12.2 fL Immature Granulocyte % (Auto) 1 % Neutrophils (%) (Auto) 60 42-75 % Lymphocytes (%) (Auto) 26 12-44 % Monocytes (%) (Auto) 14 H 0-12 % Eosinophils (%) (Auto) 0 0-10 % Basophils (%) (Auto) 0 0-10 % Neutrophils # (Auto) 2.9 1.8-7.8 10^3/uL Lymphocytes # (Auto) 1.3 1.0-4.0 10^3/uL Monocytes # (Auto) 0.7 0.0-1.0 10^3/uL Eosinophils # (Auto) 0.0 0.0-0.3 10^3/uL Basophils # (Auto) 0.0 0.0-0.1 10^3/uL Immature Granulocyte # (Auto) 0.1 0.0-0.1 10^3/uL Prothrombin Time 14.0 12.2-14.7 SEC INR Comment 1.0 0.8-1.4 Activated Partial Thromboplast Time 34 24-35 SEC Sodium Level 144 135-145 MMOL/L Potassium Level 3.9 3.6 3.6-5.0 MMOL/L Chloride Level 114 H 98-107 MMOL/L Carbon Dioxide Level 20 L 21-32 MMOL/L Anion Gap 10 5-14 MMOL/L Blood Urea Nitrogen 9 7-18 MG/DL Creatinine 0.60 0.60-1.30 MG/DL Estimat Glomerular Filtration Rate > 60 BUN/Creatinine Ratio 15 Glucose Level 168 H 70-105 MG/DL Calcium Level 7.6 L 8.5-10.1 MG/DL Corrected Calcium 8.2 L 8.5-10.1 MG/DL Phosphorus Level 2.0 L 2.3-4.7 MG/DL Magnesium Level 4.6 H 1.6-2.4 MG/DL Total Bilirubin 0.3 0.1-1.0 MG/DL Aspartate Amino Transf (AST/SGOT) 350 H 5-34 U/L Alanine Aminotransferase (ALT/SGPT) 384 H 0-55 U/L Alkaline Phosphatase 76 40-136 U/L Total Protein 6.1 L 6.4-8.2 GM/DL Albumin 3.3 3.2-4.5 GM/DL Glucometer 161 H 159 H 70-110 MG/DL Test 12/30/20 02:04 12/30/20 03:01 12/30/20 03:35 12/30/20 04:05 Range/Units Glucometer 146 H 132 H 70-110 MG/DL Potassium Level 3.4 L 3.6-5.0 MMOL/L Blood Gas Puncture Site RIGHT RADIAL Blood Gas Patient Temperature 34.0 Arterial Blood pH 7.46 H 7.37-7.43 Arterial Blood Partial Pressure CO2 31 L 35-45 MMHG Arterial Blood Partial Pressure O2 85 79-93 MMHG Arterial Blood HCO3 22 L 23-27 MMOL/L Arterial Blood Total CO2 23.2 21.0-31.0 MMOL/L Arterial Blood Oxygen Saturation 97 94-100 % Arterial Blood Base Excess -1.8 -2.5-2.5 MMOL/L Ricci Test ART LINE Blood Gas Ventilator Setting YES Blood Gas Inspired Oxygen 28% Test 12/30/20 04:06 12/30/20 04:56 12/30/20 05:30 12/30/20 05:55 Range/Units Glucometer 143 H 133 H 146 H 70-110 MG/DL White Blood Count 6.0 4.3-11.0 10^3/uL Red Blood Count 3.82 L 4.30-5.52 10^6/uL Hemoglobin 10.8 L 13.3-17.7 g/dL Hematocrit 33 L 40-54 % Mean Corpuscular Volume 86 80-99 fL Mean Corpuscular Hemoglobin 28 25-34 pg Mean Corpuscular Hemoglobin Concent 33 32-36 g/dL Red Cell Distribution Width 13.1 10.0-14.5 % Platelet Count 208 130-400 10^3/uL Mean Platelet Volume 9.8 9.0-12.2 fL Immature Granulocyte % (Auto) 1 % Neutrophils (%) (Auto) 72 42-75 % Lymphocytes (%) (Auto) 17 12-44 % Monocytes (%) (Auto) 11 0-12 % Eosinophils (%) (Auto) 0 0-10 % Basophils (%) (Auto) 0 0-10 % Neutrophils # (Auto) 4.3 1.8-7.8 10^3/uL Lymphocytes # (Auto) 1.0 1.0-4.0 10^3/uL Monocytes # (Auto) 0.6 0.0-1.0 10^3/uL Eosinophils # (Auto) 0.0 0.0-0.3 10^3/uL Basophils # (Auto) 0.0 0.0-0.1 10^3/uL Immature Granulocyte # (Auto) 0.0 0.0-0.1 10^3/uL Prothrombin Time 14.1 12.2-14.7 SEC INR Comment 1.1 0.8-1.4 Activated Partial Thromboplast Time 34 24-35 SEC Sodium Level 144 135-145 MMOL/L Potassium Level 3.8 3.6-5.0 MMOL/L Chloride Level 114 H 98-107 MMOL/L Carbon Dioxide Level 21 21-32 MMOL/L Anion Gap 9 5-14 MMOL/L Blood Urea Nitrogen 9 7-18 MG/DL Creatinine 0.57 L 0.60-1.30 MG/DL Estimat Glomerular Filtration Rate > 60 BUN/Creatinine Ratio 16 Glucose Level 155 H 70-105 MG/DL Calcium Level 7.3 L 8.5-10.1 MG/DL Corrected Calcium 8.1 L 8.5-10.1 MG/DL Phosphorus Level 3.8 2.3-4.7 MG/DL Magnesium Level 2.8 H 1.6-2.4 MG/DL Total Bilirubin 0.2 0.1-1.0 MG/DL Aspartate Amino Transf (AST/SGOT) 254 H 5-34 U/L Alanine Aminotransferase (ALT/SGPT) 328 H 0-55 U/L Alkaline Phosphatase 72 40-136 U/L Total Protein 5.6 L 6.4-8.2 GM/DL Albumin 3.0 L 3.2-4.5 GM/DL Procalcitonin 0.08 <0.10 NG/ML Test 12/30/20 06:44 12/30/20 08:07 12/30/20 09:45 12/30/20 09:50 Range/Units Glucometer 131 H 149 H 161 H 70-110 MG/DL Potassium Level 4.0 3.6-5.0 MMOL/L Blood Gas Puncture Site R RAD Blood Gas Patient Temperature 35.1 Arterial Blood pH 7.42 7.37-7.43 Arterial Blood Partial Pressure CO2 35 35-45 MMHG Arterial Blood Partial Pressure O2 66 L 79-93 MMHG Arterial Blood HCO3 23 23-27 MMOL/L Arterial Blood Total CO2 23.8 21.0-31.0 MMOL/L Arterial Blood Oxygen Saturation 93 L 94-100 % Arterial Blood Base Excess -1.6 -2.5-2.5 MMOL/L Ricci Test YES-POS Blood Gas Ventilator Setting YES Blood Gas Inspired Oxygen 21% Test 12/30/20 11:20 12/30/20 11:24 12/30/20 13:32 12/30/20 13:35 Range/Units White Blood Count 8.4 4.3-11.0 10^3/uL Red Blood Count 3.72 L 4.30-5.52 10^6/uL Hemoglobin 10.8 L 13.3-17.7 g/dL Hematocrit 32 L 40-54 % Mean Corpuscular Volume 86 80-99 fL Mean Corpuscular Hemoglobin 29 25-34 pg Mean Corpuscular Hemoglobin Concent 34 32-36 g/dL Red Cell Distribution Width 13.3 10.0-14.5 % Platelet Count 222 130-400 10^3/uL Mean Platelet Volume 9.7 9.0-12.2 fL Immature Granulocyte % (Auto) 1 % Neutrophils (%) (Auto) 86 H 42-75 % Lymphocytes (%) (Auto) 9 L 12-44 % Monocytes (%) (Auto) 5 0-12 % Eosinophils (%) (Auto) 0 0-10 % Basophils (%) (Auto) 0 0-10 % Neutrophils # (Auto) 7.2 1.8-7.8 10^3/uL Lymphocytes # (Auto) 0.7 L 1.0-4.0 10^3/uL Monocytes # (Auto) 0.4 0.0-1.0 10^3/uL Eosinophils # (Auto) 0.0 0.0-0.3 10^3/uL Basophils # (Auto) 0.0 0.0-0.1 10^3/uL Immature Granulocyte # (Auto) 0.1 0.0-0.1 10^3/uL Neutrophils % (Manual) 75 % Lymphocytes % (Manual) 9 % Monocytes % (Manual) 8 % Eosinophils % (Manual) 0 % Basophils % (Manual) 0 % Band Neutrophils 8 % Elliptocytes SLIGHT Prothrombin Time 13.9 12.2-14.7 SEC INR Comment 1.0 0.8-1.4 Activated Partial Thromboplast Time 32 24-35 SEC Sodium Level 143 145 135-145 MMOL/L Potassium Level 4.0 4.0 3.6-5.0 MMOL/L Chloride Level 113 H 113 H 98-107 MMOL/L Carbon Dioxide Level 20 L 20 L 21-32 MMOL/L Anion Gap 10 12 5-14 MMOL/L Blood Urea Nitrogen 9 8 7-18 MG/DL Creatinine 0.62 0.60 0.60-1.30 MG/DL Estimat Glomerular Filtration Rate > 60 > 60 BUN/Creatinine Ratio 15 13 Glucose Level 154 H 144 H 70-105 MG/DL Calcium Level 7.5 L 7.8 L 8.5-10.1 MG/DL Phosphorus Level 2.7 2.6 2.3-4.7 MG/DL Magnesium Level 3.8 H 4.0 H 1.6-2.4 MG/DL Glucometer 154 H 162 H 70-110 MG/DL Albumin 2.9 L 3.2-4.5 GM/DL Test 12/30/20 15:10 12/30/20 15:18 12/30/20 17:27 Range/Units Potassium Level 4.1 3.6-5.0 MMOL/L Glucometer 159 H 70-110 MG/DL White Blood Count 7.7 4.3-11.0 10^3/uL Red Blood Count 3.74 L 4.30-5.52 10^6/uL Hemoglobin 10.7 L 13.3-17.7 g/dL Hematocrit 32 L 40-54 % Mean Corpuscular Volume 86 80-99 fL Mean Corpuscular Hemoglobin 29 25-34 pg Mean Corpuscular Hemoglobin Concent 33 32-36 g/dL Red Cell Distribution Width 13.2 10.0-14.5 % Platelet Count 243 130-400 10^3/uL Mean Platelet Volume 10.2 9.0-12.2 fL Immature Granulocyte % (Auto) 1 % Neutrophils (%) (Auto) 81 H 42-75 % Lymphocytes (%) (Auto) 11 L 12-44 % Monocytes (%) (Auto) 7 0-12 % Eosinophils (%) (Auto) 0 0-10 % Basophils (%) (Auto) 0 0-10 % Neutrophils # (Auto) 6.3 1.8-7.8 10^3/uL Lymphocytes # (Auto) 0.8 L 1.0-4.0 10^3/uL Monocytes # (Auto) 0.5 0.0-1.0 10^3/uL Eosinophils # (Auto) 0.0 0.0-0.3 10^3/uL Basophils # (Auto) 0.0 0.0-0.1 10^3/uL Immature Granulocyte # (Auto) 0.1 0.0-0.1 10^3/uL Prothrombin Time 14.1 12.2-14.7 SEC INR Comment 1.1 0.8-1.4 Activated Partial Thromboplast Time 36 H 24-35 SEC Physical Exam Physical Exam Vital Signs Vital Signs - First Documented 12/29/20 12/29/20 12/29/20 08:19 08:45 11:15 Temp 36.7 Pulse 52 Resp 36 B/P (MAP) 131/78 (95) Pulse Ox 97 O2 Delivery Ambu Bag O2 Flow Rate 100.00 FiO2 30 Capillary Refill : Greater Than 3 Seconds Height, Weight, BMI Height: '" Weight: lbs. oz. kg; 26.64 BMI Method: General Appearance: Other (Intubated and sedated) Eyes: Bilateral Eye Normal Inspection, Bilateral Eye Other (Bilateral TMs 2 mm nonreactive to light or accommodation) Respiratory: Lungs Clear, No Accessory Muscle Use, Respiratory Distress (Ventilated using an orotracheal intubated tube) Cardiovascular: Regular Rate, Rhythm (Heart rate in the 50s), Normal Peripheral Pulses, Bradycardia A/P-Cardiology Admission Diagnosis Acute respiratory failure COVID-19 infection Cardiac arrest Ventilator dependent Assessment/Plan Acute respiratory failure, ventilator dependent, managed by Dr. Garcia COVID-19 infection diagnosed last week Status post cardiac arrest, chest compression were initiated at home by his then by EMT, brought to the hospital, currently ventilator dependent. Questionable anoxic brain injury Persistent bradycardia, requiring atropine, probably secondary to hypothermia, monitor heart rate and blood pressure Sepsis, started on cefepime and vancomycin Shock liver secondary to cardiac arrest Electrolyte imbalance managed by primary care physician FLOWER STRONG MD Dec 30, 2020 19:50
[2020-12-30] MEDS ORDERED: THEOPHYLLINE ER 400 MG TAB (THEO-24) PO SCH (20:00)
[2020-12-30] MEDS ORDERED: THEOPHYLLINE CR 300 MG (THEO-DUR) TAB PO SCH (21:00)
[2020-12-30 22:45] VITALS: BP 129/74
[2020-12-30] MEDS ORDERED: NS IV 500 ML 500 ML ONE (23:39)
[2020-12-30] MEDS ORDERED: NS IV 1000 ML 1,000 ML ONE (23:43)
[2020-12-30 23:50] LABS: BASOPHILS % (AUTO) 0 % (0-10); EOSINOPHILS % (AUTO) 0 % (0-10); HEMATOCRIT 31 % (40-54); HEMOGLOBIN 10.5 g/dL (13.3-17.7); LYMPHOCYTES # (AUTO) 1.1 10^3/uL (1.0-4.0); LYMPHOCYTES % (AUTO) 17 % (12-44); MEAN CORPUSCULAR HEMOGLOBIN 29 pg (25-34); MEAN CORPUSCULAR HGB CONC 34 g/dL (32-36); MEAN CORPUSCULAR VOLUME 85 fL (80-99); MEAN PLATELET VOLUME 10.1 fL (9.0-12.2); MONOCYTES # (AUTO) 0.5 10^3/uL (0.0-1.0); MONOCYTES % (AUTO) 7 % (0-12); NEUTROPHILS # (AUTO) 5.1 10^3/uL (1.8-7.8); NEUTROPHILS % (AUTO) 76 % (42-75); PLATELET COUNT 243 10^3/uL (130-400); WHITE BLOOD COUNT 6.7 10^3/uL (4.3-11.0)
[2020-12-31] VITALS (8 sets, daily range): BP systolic 107–152; BP diastolic 75–100
[2020-12-31] MEDS ORDERED: NS IV 1000 ML 1,000 ML IV SCH
[2020-12-31] MEDS: ROCURONIUM 10 MG/ML 5 ML SYRINGE IV PRN
[2020-12-31 00:03] LABS: INR 1.1 (0.8-1.4); PROTHROMBIN TIME PATIENT 14.2 SEC (12.2-14.7)
[2020-12-31 00:06] LABS: ALBUMIN 2.9 GM/DL (3.2-4.5)
[2020-12-31 00:07] LABS: POTASSIUM 3.8 MMOL/L (3.6-5.0); SODIUM 143 MMOL/L (135-145)
[2020-12-31 00:08] LABS: CALCIUM 7.5 MG/DL (8.5-10.1)
[2020-12-31 00:09] LABS: GLUCOSE 130 MG/DL (70-105)
[2020-12-31 00:10] LABS: CARBON DIOXIDE 21 MMOL/L (21-32)
[2020-12-31 00:13] LABS: BUN/CREATININE RATIO 15; CREATININE SERUM 0.54 MG/DL (0.60-1.30); GFR ESTIMATED > 60; PHOSPHORUS 2.4 MG/DL (2.3-4.7)
[2020-12-31 00:15] LABS: MAGNESIUM 2.7 MG/DL (1.6-2.4)
[2020-12-31] MEDS ORDERED: PHENYLEPHRINE INJ 10 MG/ML (FOR DRIP KITS ONLY) ONE ×2 (00:27→02:35)
[2020-12-31] MEDS ORDERED: NS (IVPB) 250 ML ONE ×3 (00:27→04:01)
[2020-12-31 00:35] LABS: ABG BASE EXCESS -1.3 MMOL/L (-2.5-2.5); ABG OXYGEN SATURATION 95 % (94-100); ABG PCO2 46 MMHG (35-45); ABG PO2 84 MMHG (79-93); ABG TCO2 25.6 MMOL/L (21.0-31.0); BASOPHILS % (AUTO) 0 % (0-10); EOSINOPHILS % (AUTO) 0 % (0-10); HEMATOCRIT 35 % (40-54); HEMOGLOBIN 12.1 g/dL (13.3-17.7); LYMPHOCYTES # (AUTO) 4.8 10^3/uL (1.0-4.0); LYMPHOCYTES % (AUTO) 41 % (12-44); MEAN CORPUSCULAR HEMOGLOBIN 29 pg (25-34); MEAN CORPUSCULAR HGB CONC 35 g/dL (32-36); MEAN CORPUSCULAR VOLUME 84 fL (80-99); MEAN PLATELET VOLUME 10.6 fL (9.0-12.2); MONOCYTES # (AUTO) 0.9 10^3/uL (0.0-1.0); MONOCYTES % (AUTO) 8 % (0-12); NEUTROPHILS # (AUTO) 5.6 10^3/uL (1.8-7.8); NEUTROPHILS % (AUTO) 49 % (42-75); PLATELET COUNT 210 10^3/uL (130-400); WHITE BLOOD COUNT 11.6 10^3/uL (4.3-11.0)
[2020-12-31 00:37] LABS: ABG PH 7.35 (7.37-7.43); ALLENS TEST ART LINE; INSPIRED O2 100%; PATIENT TEMP 35.4; VENTILATOR YES
[2020-12-31 00:38] LABS: CHLORIDE 112 MMOL/L (98-107)
[2020-12-31] MEDS: LACRI-LUBE OPTHALMIC OINT 3.5 GM TUBE OU SCH ×5 (00:45→23:05)
[2020-12-31] MEDS: CEFEPIME 1,000 MG/SWFI 10 ML IV PUSH IV SCH ×2 (00:45)
[2020-12-31 00:46] LABS: ALBUMIN 2.7 GM/DL (3.2-4.5)
[2020-12-31] MEDS: POTASSIUM CL 10MEQ/50ML IVPB 50 ML IV SCH ×11 (00:46→17:03)
[2020-12-31 00:47] LABS: CHLORIDE 113 MMOL/L (98-107); POTASSIUM 4.9 MMOL/L (3.6-5.0); SODIUM 147 MMOL/L (135-145)
[2020-12-31 00:48] LABS: CALCIUM 7.2 MG/DL (8.5-10.1)
[2020-12-31 00:49] LABS: GLUCOSE 132 MG/DL (70-105); TOTAL PROTEIN 5.2 GM/DL (6.4-8.2)
[2020-12-31 00:50] LABS: CARBON DIOXIDE 22 MMOL/L (21-32)
[2020-12-31 00:51] LABS: BILIRUBIN,TOTAL 0.3 MG/DL (0.1-1.0)
[2020-12-31 00:52] LABS: ALKALINE PHOSPHATASE 72 U/L (40-136); BAND NEUTROPHILS 1 %; LYMPHOCYTES % (MANUAL) 19 %; MONOCYTES % (MANUAL) 12 %; NEUTROPHILS % (MANUAL) 68 %; RBC MORPH NORMAL
[2020-12-31 00:53] LABS: CREATININE SERUM 0.58 MG/DL (0.60-1.30); GFR ESTIMATED > 60
[2020-12-31 00:54] LABS: BUN/CREATININE RATIO 16
[2020-12-31 00:55] LABS: MAGNESIUM 2.6 MG/DL (1.6-2.4)
[2020-12-31 00:56] LABS: ALANINE AMINOTRANSFERASE 292 U/L (0-55)
[2020-12-31] MEDS ORDERED: PANTOPRAZOLE INJECTION 200 MG in NS (IVPB) 100 ML IV SCH (01:45)
[2020-12-31] MEDS ORDERED: NS (IVPB) 100 ML ONE (01:55)
[2020-12-31] MEDS: PHENYLEPHRINE INJECTION 10 MG in NS (IVPB) 250 ML IV SCH ×4 (02:20→09:19)
[2020-12-31] MEDS ORDERED: NOREPINEPHRINE 8 MG/250 ML 0 ML IV ONE (02:55)
[2020-12-31 02:57] LABS: BASOPHILS % (AUTO) 0 % (0-10); EOSINOPHILS % (AUTO) 0 % (0-10); HEMATOCRIT 36 % (40-54); HEMOGLOBIN 11.7 g/dL (13.3-17.7); LYMPHOCYTES # (AUTO) 1.4 10^3/uL (1.0-4.0); LYMPHOCYTES % (AUTO) 8 % (12-44); MEAN CORPUSCULAR HEMOGLOBIN 29 pg (25-34); MEAN CORPUSCULAR HGB CONC 33 g/dL (32-36); MEAN CORPUSCULAR VOLUME 87 fL (80-99); MEAN PLATELET VOLUME 9.9 fL (9.0-12.2); MONOCYTES # (AUTO) 0.6 10^3/uL (0.0-1.0); MONOCYTES % (AUTO) 3 % (0-12); NEUTROPHILS # (AUTO) 16.8 10^3/uL (1.8-7.8); NEUTROPHILS % (AUTO) 88 % (42-75); PLATELET COUNT 354 10^3/uL (130-400)
[2020-12-31 03:10] LABS: CHLORIDE 111 MMOL/L (98-107); POTASSIUM 3.3 MMOL/L (3.6-5.0); SODIUM 143 MMOL/L (135-145)
[2020-12-31] MEDS: NOREPINEPHRINE 8 MG/250 ML 250 ML IV SCH ×2 (03:10→16:37)
[2020-12-31 03:12] LABS: GLUCOSE 147 MG/DL (70-105)
[2020-12-31 03:14] LABS: CARBON DIOXIDE 18 MMOL/L (21-32)
[2020-12-31 03:16] LABS: CREATININE SERUM 0.69 MG/DL (0.60-1.30); GFR ESTIMATED > 60; PHOSPHORUS 3.4 MG/DL (2.3-4.7)
[2020-12-31 03:17] LABS: BUN/CREATININE RATIO 14
[2020-12-31 03:18] LABS: MAGNESIUM 2.3 MG/DL (1.6-2.4)
[2020-12-31] MEDS: fentaNYL 1,250 MCG/NS 250 ML DRIP IV SCH ×2 (03:28→19:23)
[2020-12-31] MEDS ORDERED: CEFEPIME 1 GM/10 ML (MAXIPIME) VIAL ONE (03:33)
[2020-12-31] MEDS ORDERED: WATER (STERILE) FOR INJECTION 10 ML ONE (03:33)
[2020-12-31 03:38] LABS: ABG BASE EXCESS -2.8 MMOL/L (-2.5-2.5); ABG OXYGEN SATURATION 95 % (94-100); ABG PCO2 33 MMHG (35-45); ABG PH 7.42 (7.37-7.43); ABG PO2 79 MMHG (79-93); ABG TCO2 22.1 MMOL/L (21.0-31.0)
[2020-12-31 03:39] LABS: ALLENS TEST ART LINE; INSPIRED O2 90%; PATIENT TEMP 36.5; VENTILATOR YES
[2020-12-31] MEDS ORDERED: MEROPENEM 1000 MG (MERREM) VIAL IV ONE (03:59)
[2020-12-31] MEDS ORDERED: VANCOMYCIN INJECTION 1,000 MG in NS (IVPB) 250 ML IV ONE (04:00)
[2020-12-31] MEDS ORDERED: VANCOMYCIN 1000 MG/VIAL ONE (04:01)
[2020-12-31] MEDS: MEROPENEM 1,000 MG in WATER (STERILE) FOR INJECTION 20 ML IV SCH ×4 (04:06→21:15)
[2020-12-31] MEDS: CISATRACURIUM INJECTION 100 MG in NS (IVPB) 200 ML IV SCH ×4 (04:10→20:42)
[2020-12-31] MEDS: LACTATED RINGERS 1,000 ML IV SCH ×3 (04:11→22:10)
--- NOTE | 2020-12-31 04:23 | Pulmonary Progress Note ---
Subjective Time Seen by a Provider: 04:18 Sepsis Event Evaluation Height, Weight, BMI Height: '" Weight: lbs. oz. kg; 26.64 BMI Method: Focused Exam Lactate Level 12/29/20 12:05: Lactic Acid Level 1.57 12/31/20 00:22: Lactic Acid Level 5.49*H 12/31/20 02:00: Lactic Acid Level 4.00*H Time of Focused Exam: 10:03 Lactic Acid Level Laboratory Tests Test 12/31/20 00:22 12/31/20 02:00 Lactic Acid Level 5.49 MMOL/L (0.50-2.00) *H 4.00 MMOL/L (0.50-2.00) *H Exam Exam Vital Signs Date Time Temp Pulse Resp B/P (MAP) Pulse Ox O2 Delivery O2 Flow Rate FiO2 12/31/20 04:00 76 24 98 Mechanical Ventilator 21.00 12/31/20 03:54 76 18 98 100 12/31/20 03:35 80 129/74 12/31/20 03:10 80 129/74 12/31/20 03:00 36.4 12/31/20 03:00 70 99 Mechanical Ventilator 21.00 12/31/20 02:20 80 129/74 12/31/20 02:05 35.9 12/31/20 02:00 77 27 93 Mechanical Ventilator 21.00 12/31/20 01:22 35.6 12/31/20 01:00 96 23 100 Mechanical Ventilator 21.00 12/31/20 01:00 96 12/31/20 00:00 35.1 12/31/20 00:00 44 14 97 Mechanical Ventilator 21.00 12/30/20 23:00 37 18 99 Mechanical Ventilator 21.00 12/30/20 23:00 34.5 12/30/20 22:45 34 19 99 21 12/30/20 22:00 34 17 100 Mechanical Ventilator 21.00 12/30/20 22:00 34.3 12/30/20 21:00 34.6 12/30/20 21:00 49 18 100 Mechanical Ventilator 21.00 12/30/20 20:31 39 161/84 12/30/20 20:00 34.7 12/30/20 20:00 34 17 100 Mechanical Ventilator 21.00 12/30/20 20:00 99 Mechanical Ventilator 21 12/30/20 19:00 34.6 12/30/20 19:00 36 17 99 Mechanical Ventilator 21.00 12/30/20 19:00 34.7 Mechanical Ventilator 21.00 12/30/20 19:00 36 12/30/20 18:45 37 24 99 21 12/30/20 18:05 34.6 12/30/20 18:00 39 177 99 Mechanical Ventilator 21.00 12/30/20 17:30 34.5 12/30/20 17:00 34.5 12/30/20 17:00 39 17 100 Mechanical Ventilator 21.00 12/30/20 16:00 100 Mechanical Ventilator 21 12/30/20 16:00 42 17 100 Mechanical Ventilator 21.00 12/30/20 15:41 33.9 12/30/20 15:20 40 12/30/20 15:00 33.9 12/30/20 15:00 42 10 99 Mechanical Ventilator 21.00 12/30/20 14:17 43 18 100 21 12/30/20 14:00 33.2 12/30/20 14:00 37 18 100 Mechanical Ventilator 21.00 12/30/20 13:00 43 16 100 Mechanical Ventilator 21.00 12/30/20 13:00 34.2 12/30/20 12:39 44 12/30/20 12:00 47 18 100 Mechanical Ventilator 21.00 12/30/20 11:45 99 Mechanical Ventilator 21 12/30/20 11:24 47 12/30/20 11:00 34.5 12/30/20 11:00 46 15 100 Mechanical Ventilator 21.00 12/30/20 10:52 46 20 100 21 12/30/20 10:00 51 15 98 Mechanical Ventilator 28.00 12/30/20 10:00 35.1 12/30/20 09:00 57 17 95 Mechanical Ventilator 28.00 12/30/20 09:00 33.9 12/30/20 08:40 34.0 12/30/20 08:00 44 16 99 Mechanical Ventilator 28.00 12/30/20 08:00 99 Mechanical Ventilator 21 12/30/20 08:00 33.6 12/30/20 08:00 33.6 12/30/20 07:45 33.5 12/30/20 07:40 43 12/30/20 07:30 33.2 12/30/20 07:00 40 15 100 Mechanical Ventilator 28.00 12/30/20 07:00 41 16 100 21 12/30/20 07:00 33.1 12/30/20 06:57 39 167/94 12/30/20 06:55 33.4 12/30/20 06:40 33.5 12/30/20 06:25 33.5 12/30/20 06:10 33.6 12/30/20 06:00 33.6 33 16 100 Mechanical Ventilator 28.00 12/30/20 05:55 33.6 12/30/20 05:40 33.7 12/30/20 05:25 33.8 12/30/20 05:10 33.8 12/30/20 05:00 33.9 40 16 100 Mechanical Ventilator 28.00 12/30/20 04:55 33.9 12/30/20 04:40 33.9 I & O 12/31/20 07:00 Intake Total 260 ml Output Total 3075 ml Balance -2815 ml Height & Weight Height: '" Weight: lbs. oz. kg; 26.64 BMI Method: General Appearance: Other (Intubated and sedated) Respiratory: Lungs Clear, No Accessory Muscle Use, Respiratory Distress (Ventil ated using an orotracheal intubated tube) Cardiovascular: Regular Rate, Rhythm (Heart rate in the 50s), Normal Peripheral Pulses, Bradycardia Capillary Refill: Greater Than 3 Seconds Peripheral Pulses: 2+ Radial Pulses (R), 2+ Radial Pulses (L) Gastrointestinal: soft, abnormal bowel sounds (Absent) Results Lab Laboratory Tests 12/29/20 08:45 12/29/20 12:05 12/29/20 17:35 12/29/20 23:30 12/30/20 01:35 12/30/20 03:35 12/30/20 05:30 12/30/20 08:07 12/30/20 11:20 12/30/20 13:35 12/30/20 15:10 12/30/20 17:27 12/30/20 23:39 12/30/20 23:40 12/31/20 00:22 12/31/20 02:00 Assessment/Plan Assessment/Plan Acute respiratory failure -Propofol 40, fentanyl 80, Versed 3, and now Nimbex -Vent intubated 4/4 -VT 580, 18, 5, Fi02 100% - Per EICU -ABG this AM is pending COVID 19 -CVP S/p Cardiac arrest x 2 -- Pt coded again last night secondary to V Fib x 2 rounds (2 epi and defib x 1) -Currently on Artic Sun -- Pt is being rewarmed per EICU -Artic Sun was started at 1230pm 12/29 -EICU managed pt through the night -Head CT is negative -CT of chest shows COVID changes Hypotension -Check Echo this AM -Neosyn, and Levophed -IVF LR at 150 -s/p 1 liter bolus -Solucortef Blood per OG tube r/o GIB -Stop Protonix gtt and change protonix to 40mg BID. Metabolic lactic acidosis -IVF -Monitor Bradycardic - Now resolved - Cardiology is following Sepsis -Cefepime and D/C Vanco -Repeat PCT - IVF - LR 150 -Timmons cultures -Not requiring pressors Shock liver -Monitor JARVIS BROOKS DO Dec 31, 2020 04:23
[2020-12-31] MEDS: PROPOFOL DRIP (ICU) 100 ML IV SCH ×5 (05:20→23:52)
[2020-12-31 05:25] LABS: ABG BASE EXCESS -1.3 MMOL/L (-2.5-2.5); ABG OXYGEN SATURATION 98 % (94-100); ABG PCO2 34 MMHG (35-45); ABG PH 7.44 (7.37-7.43); ABG PO2 133 MMHG (79-93); ABG TCO2 23.4 MMOL/L (21.0-31.0)
[2020-12-31 05:26] LABS: ALLENS TEST ART LINE; INSPIRED O2 100%; PATIENT TEMP 36.7; VENTILATOR YES
[2020-12-31 05:31] LABS: BASOPHILS % (AUTO) 0 % (0-10); EOSINOPHILS % (AUTO) 0 % (0-10); HEMATOCRIT 36 % (40-54); HEMOGLOBIN 11.7 g/dL (13.3-17.7); LYMPHOCYTES # (AUTO) 1.3 10^3/uL (1.0-4.0); LYMPHOCYTES % (AUTO) 8 % (12-44); MEAN CORPUSCULAR HEMOGLOBIN 28 pg (25-34); MEAN CORPUSCULAR HGB CONC 32 g/dL (32-36); MEAN CORPUSCULAR VOLUME 86 fL (80-99); MEAN PLATELET VOLUME 9.7 fL (9.0-12.2); MONOCYTES # (AUTO) 0.8 10^3/uL (0.0-1.0); MONOCYTES % (AUTO) 5 % (0-12); NEUTROPHILS # (AUTO) 14.1 10^3/uL (1.8-7.8); NEUTROPHILS % (AUTO) 86 % (42-75); PLATELET COUNT 412 10^3/uL (130-400); WHITE BLOOD COUNT 16.5 10^3/uL (4.3-11.0)
--- NOTE | 2020-12-31 05:31 | Diagnostic Imaging Report ---
INDICATION: Status post CODE BLUE. COMPARISON: 12/29/2020 FINDINGS: Single frontal radiographic view of the chest was obtained and demonstrates indwelling endotracheal tube with tip just above the level of the clavicular heads. Gastric tube is seen with tip and side-port likely within the stomach. Cardiac silhouette and pulmonary vasculature are within normal limits. Lungs show interval development of diffuse prominence of the interstitium and patchy central alveolar opacities. There is no large effusion or pneumothorax. Osseous structures show no gross acute abnormalities. IMPRESSION: 1. Interval development of mixed interstitial and alveolar opacities. Findings are suspicious for mixed pulmonary edema, although infiltrate or aspiration would be within the differential as well. 2. Lines and tubes as above. Dictated by: Dictated on workstation # [id number]
--- NOTE | 2020-12-31 05:33 | Diagnostic Imaging Report ---
INDICATION: Status post CODE BLUE. Tube placement. COMPARISON: Earlier same day FINDINGS: Single frontal radiographic view of the chest was obtained and demonstrates indwelling endotracheal tube with tip at the upper level of clavicular heads. Gastric tube extends inferiorly beyond the [id number]. Right internal jugular central venous catheter is also seen with tip in the low SVC. Cardiac silhouette is stable. Pulmonary vasculature appears prominent. Lungs again show diffuse prominence of the pulmonary interstitium with more central perihilar alveolar patchy opacities. There is no large effusion or pneumothorax. IMPRESSION: 1. Lines and tubes as above. 2. Persistent mixed interstitial and alveolar pulmonary opacities concerning for pulmonary edema, although pneumonia/ARDS may have a similar appearance. Dictated by: Dictated on workstation # [id number]
[2020-12-31 05:44] LABS: CHLORIDE 113 MMOL/L (98-107); SODIUM 143 MMOL/L (135-145)
[2020-12-31 05:45] LABS: GLUCOSE 141 MG/DL (70-105)
[2020-12-31 05:47] LABS: CARBON DIOXIDE 19 MMOL/L (21-32); PROTHROMBIN TIME PATIENT 13.8 SEC (12.2-14.7)
[2020-12-31 05:49] LABS: CREATININE SERUM 0.59 MG/DL (0.60-1.30); GFR ESTIMATED > 60; PHOSPHORUS 2.5 MG/DL (2.3-4.7)
[2020-12-31 05:50] LABS: BUN/CREATININE RATIO 17
[2020-12-31 05:52] LABS: MAGNESIUM 2.2 MG/DL (1.6-2.4)
[2020-12-31] MEDS: HYDROCORTISONE 100 MG/2 ML (Solu-CORTEF) VIAL IV SCH ×3 (06:33→21:15)
[2020-12-31] MEDS: RT-ALBUTEROL INHALER HFA (VENTOLIN HFA) 18 GM IH SCH ×4 (06:34→19:00)
[2020-12-31] MEDS: MAGNESIUM SULFATE DRIP 500 ML IV SCH (07:38)
--- NOTE | 2020-12-31 07:50 | Physical Therapy Progress Note ---
Therapy Progress Note Patient currently sedated and intubated. PT will continue to monitor patient status and initiate treatment when patient is medically stable and able to actively participate with skilled therapy. MARLENI AC PT Dec 31, 2020 07:50
[2020-12-31] MEDS: PANTOPRAZOLE 40 MG (PROTONIX) VIAL IV SCH ×2 (08:18→20:34)
--- NOTE | 2020-12-31 09:04 | Cardiology Progress Note ---
Subjective Date Seen by Provider: Dec 31, 2020 Time Seen by Provider: 09:02 Subjective/Events-last exam Patient is ventilator dependent Review of Systems General: Other (Unable to provide review of system) Focused Exam Lactate Level 12/31/20 02:00: Lactic Acid Level 4.00*H 12/31/20 05:00: Lactic Acid Level 2.22*H 12/31/20 07:50: Lactic Acid Level 1.77 Time of Focused Exam: 10:03 Lactic Acid Level Laboratory Tests Test 12/31/20 07:50 Lactic Acid Level 1.77 MMOL/L (0.50-2.00) Objective-Cardiology Exam Last Set of Vital Signs Vital Signs 12/31/20 12/31/20 12/31/20 12/31/20 05:20 06:34 06:45 08:00 Temp 35.2 Pulse 73 Resp 18 B/P (MAP) 126/100 Pulse Ox 92 O2 Delivery Mechanical Ventilator O2 Flow Rate 60.00 FiO2 60 Capillary Refill : Greater Than 3 Seconds I&O Intake and Output 12/31/20 00:00 Intake Total 2311.6667 ml Output Total 4280 ml Balance -1968.3333 ml Intake Oral 0 ml IV Total 2191.6667 ml Other 120 ml Output Urine Total 4280 ml General: Other (Sedated and intubated) HEENT: Atraumatic Lungs: Normal Air Movement Heart: Normal S1, Normal S2, Other (Heart rate is better) Abdomen: No Tenderness Extremities: No Clubbing, No Cyanosis Skin: No Rashes Neuro: Other (Sedated and intubated) Psych/Mental Status: Other (Sedated and intubated) Results Lab Laboratory Tests 12/30/20 11:20 12/30/20 13:35 12/30/20 15:10 12/30/20 17:27 12/30/20 23:39 12/30/20 23:40 12/31/20 00:22 12/31/20 02:00 12/31/20 05:00 A/P-Cardiology Admission Diagnosis Acute respiratory failure COVID-19 infection Cardiac arrest Ventilator dependent Assessment/Plan Acute respiratory failure, ventilator dependent, managed by Dr. Garcia COVID-19 infection diagnosed last week Status post cardiac arrest, chest compression were initiated at home by his then by EMT, brought to the hospital, currently ventilator dependent. Had another episode last night with ventricular tachycardia and ventricular fibrillation, ACLS protocol was followed and patient regained pulse. Questionable underlying anoxic brain injury due to to the above-mentioned events. Continue monitoring for now, managed by primary care team Sinus bradycardia, heart rate is better, started on theophylline Hypotensive shock, maintained on pressors. Continue to monitor blood pressure Sepsis, started on cefepime and vancomycin Shock liver secondary to cardiac arrest, continue to monitor Electrolyte imbalance managed by primary care physician FLOWER STRONG MD Dec 31, 2020 09:04
--- NOTE | 2020-12-31 09:25 | Occ Therapy Progress Note ---
Therapy Progress Note OT will continue to monitor pt. Pt. currently on mechanical ventilator and sedation. [id number] FEDE JANSEN OT Dec 31, 2020 09:24
[2020-12-31 09:27] LABS: ABG BASE EXCESS -1.9 MMOL/L (-2.5-2.5); ABG OXYGEN SATURATION 96 % (94-100); ABG PCO2 34 MMHG (35-45); ABG PH 7.42 (7.37-7.43); ABG PO2 70 MMHG (79-93); ABG TCO2 23.5 MMOL/L (21.0-31.0)
[2020-12-31 09:32] LABS: ALLENS TEST ART LINE
[2020-12-31 09:33] LABS: INSPIRED O2 60%; PATIENT TEMP 34.9; VENTILATOR YES
--- NOTE | 2020-12-31 09:44 | Diagnostic Imaging Report ---
INDICATION: COVID-19 positive with sepsis. Left arm pain. FINDINGS: Color Doppler imaging does show thrombus extending along the length of the left cephalic vein. The jugular, subclavian and axillary vein as well as the brachial vein are widely patent. IMPRESSION: There is superficial thrombosis involving majority of the left cephalic vein. Dictated by: Dictated on workstation # [id number]
[2020-12-31] MEDS: ENOXAPARIN 100 MG/1 ML (LOVENOX) SYR SC SCH ×2 (10:46→22:10)
[2020-12-31] MEDS: MIDAZOLAM DRIP PRE-MIX 100 ML IV SCH (13:01)
[2020-12-31 13:07] LABS: BASOPHILS % (AUTO) 0 % (0-10); EOSINOPHILS % (AUTO) 0 % (0-10); HEMATOCRIT 33 % (40-54); HEMOGLOBIN 10.6 g/dL (13.3-17.7); LYMPHOCYTES # (AUTO) 1.5 10^3/uL (1.0-4.0); LYMPHOCYTES % (AUTO) 10 % (12-44); MEAN CORPUSCULAR HEMOGLOBIN 29 pg (25-34); MEAN CORPUSCULAR HGB CONC 33 g/dL (32-36); MEAN CORPUSCULAR VOLUME 88 fL (80-99); MEAN PLATELET VOLUME 10.1 fL (9.0-12.2); MONOCYTES # (AUTO) 0.9 10^3/uL (0.0-1.0); MONOCYTES % (AUTO) 6 % (0-12); NEUTROPHILS # (AUTO) 12.2 10^3/uL (1.8-7.8); NEUTROPHILS % (AUTO) 83 % (42-75); PLATELET COUNT 310 10^3/uL (130-400); WHITE BLOOD COUNT 14.7 10^3/uL (4.3-11.0)
[2020-12-31 13:15] LABS: CHLORIDE 114 MMOL/L (98-107); POTASSIUM 4.7 MMOL/L (3.6-5.0); SODIUM 144 MMOL/L (135-145)
[2020-12-31 13:17] LABS: GLUCOSE 148 MG/DL (70-105); TRIGLYCERIDES 150 MG/DL (<150)
[2020-12-31 13:18] LABS: CARBON DIOXIDE 25 MMOL/L (21-32); INR 1.1 (0.8-1.4); PROTHROMBIN TIME PATIENT 15.1 SEC (12.2-14.7)
[2020-12-31 13:21] LABS: CREATININE SERUM 0.61 MG/DL (0.60-1.30); GFR ESTIMATED > 60
[2020-12-31 13:22] LABS: BUN/CREATININE RATIO 15
[2020-12-31 13:23] LABS: MAGNESIUM 2.2 MG/DL (1.6-2.4)
[2020-12-31] MEDS ORDERED: NS IV 500 ML 500 ML ONE (13:51)
[2020-12-31 17:41] LABS: BASOPHILS % (AUTO) 0 % (0-10); EOSINOPHILS % (AUTO) 0 % (0-10); HEMATOCRIT 31 % (40-54); HEMOGLOBIN 10.2 g/dL (13.3-17.7); LYMPHOCYTES # (AUTO) 1.4 10^3/uL (1.0-4.0); LYMPHOCYTES % (AUTO) 12 % (12-44); MEAN CORPUSCULAR HEMOGLOBIN 29 pg (25-34); MEAN CORPUSCULAR HGB CONC 33 g/dL (32-36); MEAN CORPUSCULAR VOLUME 88 fL (80-99); MEAN PLATELET VOLUME 9.9 fL (9.0-12.2); MONOCYTES # (AUTO) 0.7 10^3/uL (0.0-1.0); MONOCYTES % (AUTO) 6 % (0-12); NEUTROPHILS # (AUTO) 9.3 10^3/uL (1.8-7.8); NEUTROPHILS % (AUTO) 81 % (42-75); PLATELET COUNT 270 10^3/uL (130-400); WHITE BLOOD COUNT 11.5 10^3/uL (4.3-11.0)
[2020-12-31 17:55] LABS: INR 1.1 (0.8-1.4); PROTHROMBIN TIME PATIENT 14.6 SEC (12.2-14.7)
[2020-12-31 17:59] LABS: CHLORIDE 111 MMOL/L (98-107); POTASSIUM 4.4 MMOL/L (3.6-5.0); SODIUM 143 MMOL/L (135-145)
[2020-12-31 18:00] LABS: CALCIUM 7.4 MG/DL (8.5-10.1)
[2020-12-31 18:01] LABS: GLUCOSE 149 MG/DL (70-105)
[2020-12-31 18:02] LABS: CARBON DIOXIDE 22 MMOL/L (21-32)
[2020-12-31 18:05] LABS: CREATININE SERUM 0.61 MG/DL (0.60-1.30); GFR ESTIMATED > 60; PHOSPHORUS 1.6 MG/DL (2.3-4.7)
[2020-12-31 18:06] LABS: BUN/CREATININE RATIO 16
[2020-12-31 18:08] LABS: MAGNESIUM 2.2 MG/DL (1.6-2.4)
[2020-12-31] MEDS ORDERED: SODIUM BICARB 8.4% 50 MEQ/50 ML (ABBOTT) SYR INJ ONE (19:32)
[2020-12-31] MEDS ORDERED: EPINEPHrine 0.1 MG/ML 10 ML (HOSPIRA) SYR IJ ONE (19:32)
[2020-12-31] MEDS ORDERED: ENOXAPARIN 100 MG/1 ML (LOVENOX) SYR SC SCH (19:45)
[2020-12-31] MEDS ORDERED: ASPIRIN E.C. 325 MG (ECOTRIN) TABLET PO NR (19:45)
[2021-01-01] MEDS: POTASSIUM CL 10MEQ/50ML IVPB 50 ML IV SCH ×5 (00:55→19:37)
[2021-01-01 02:29] VITALS: BP 133/95
[2021-01-01] MEDS: RT-ALBUTEROL INHALER HFA (VENTOLIN HFA) 18 GM IH SCH ×6 (02:29→22:58)
[2021-01-01] MEDS: CISATRACURIUM INJECTION 100 MG in NS (IVPB) 200 ML IV SCH ×2 (03:01→03:50)
[2021-01-01 03:15] LABS: BASOPHILS % (AUTO) 0 % (0-10); EOSINOPHILS % (AUTO) 0 % (0-10); HEMATOCRIT 27 % (40-54); LYMPHOCYTES # (AUTO) 1.4 10^3/uL (1.0-4.0); LYMPHOCYTES % (AUTO) 19 % (12-44); MEAN CORPUSCULAR HEMOGLOBIN 29 pg (25-34); MEAN CORPUSCULAR HGB CONC 33 g/dL (32-36); MEAN CORPUSCULAR VOLUME 87 fL (80-99); MEAN PLATELET VOLUME 10.1 fL (9.0-12.2); MONOCYTES # (AUTO) 0.4 10^3/uL (0.0-1.0); MONOCYTES % (AUTO) 6 % (0-12); NEUTROPHILS # (AUTO) 5.5 10^3/uL (1.8-7.8); NEUTROPHILS % (AUTO) 74 % (42-75); PLATELET COUNT 214 10^3/uL (130-400); WHITE BLOOD COUNT 7.4 10^3/uL (4.3-11.0)
[2021-01-01 03:16] LABS: ABG BASE EXCESS 1.9 MMOL/L (-2.5-2.5); ABG OXYGEN SATURATION 99 % (94-100); ABG PCO2 30 MMHG (35-45); ABG PH 7.52 (7.37-7.43); ABG PO2 107 MMHG (79-93); ABG TCO2 25.7 MMOL/L (21.0-31.0); ALLENS TEST ART LINE
[2021-01-01 03:17] LABS: INSPIRED O2 30%; PATIENT TEMP 36.6; VENTILATOR YES
[2021-01-01 03:25] LABS: CHLORIDE 112 MMOL/L (98-107); POTASSIUM 3.7 MMOL/L (3.6-5.0); SODIUM 143 MMOL/L (135-145)
[2021-01-01 03:26] LABS: CALCIUM 7.1 MG/DL (8.5-10.1)
[2021-01-01 03:27] LABS: GLUCOSE 117 MG/DL (70-105); INR 1.2 (0.8-1.4); PROTHROMBIN TIME PATIENT 15.8 SEC (12.2-14.7)
[2021-01-01 03:28] LABS: CARBON DIOXIDE 21 MMOL/L (21-32)
[2021-01-01 03:30] LABS: PHOSPHORUS 1.9 MG/DL (2.3-4.7)
[2021-01-01 03:31] LABS: CREATININE SERUM 0.59 MG/DL (0.60-1.30); GFR ESTIMATED > 60
[2021-01-01 03:32] LABS: BUN/CREATININE RATIO 22
[2021-01-01] MEDS: PROPOFOL DRIP (ICU) 100 ML IV SCH ×4 (03:51→23:41)
[2021-01-01] MEDS: MIDAZOLAM DRIP PRE-MIX 100 ML IV SCH ×2 (03:57→16:58)
[2021-01-01] MEDS: MEROPENEM 1,000 MG in WATER (STERILE) FOR INJECTION 20 ML IV SCH ×4 (03:57→21:39)
--- NOTE | 2021-01-01 04:53 | Pulmonary Progress Note ---
Subjective Time Seen by a Provider: 04:48 Subjective/Events-last exam Pt appears to be doing better. Sepsis Event Evaluation Height, Weight, BMI Height: '" Weight: lbs. oz. kg; 26.64 BMI Method: Focused Exam Lactate Level 12/31/20 02:00: Lactic Acid Level 4.00*H 12/31/20 05:00: Lactic Acid Level 2.22*H 12/31/20 07:50: Lactic Acid Level 1.77 Time of Focused Exam: 10:03 Exam Exam Vital Signs Date Time Temp Pulse Resp B/P (MAP) Pulse Ox O2 Delivery O2 Flow Rate FiO2 01/01/21 04:09 96 Mechanical Ventilator 30 01/01/21 04:09 36.7 01/01/21 04:02 36.7 01/01/21 03:57 112/77 01/01/21 03:51 117/74 01/01/21 03:01 36.6 01/01/21 03:00 52 17 94 Mechanical Ventilator 30.00 01/01/21 02:29 52 18 95 30 01/01/21 02:05 36.4 01/01/21 02:00 53 17 94 Mechanical Ventilator 30.00 01/01/21 01:00 53 01/01/21 01:00 53 17 95 Mechanical Ventilator 30.00 01/01/21 00:54 36.0 01/01/21 00:00 50 17 96 Mechanical Ventilator 30.00 12/31/20 23:58 35.9 12/31/20 23:53 35.9 12/31/20 23:52 48 116/72 12/31/20 23:18 95 Mechanical Ventilator 30 12/31/20 23:04 36.1 12/31/20 23:00 50 17 95 Mechanical Ventilator 30.00 12/31/20 22:47 Mechanical Ventilator 30.00 12/31/20 22:00 52 17 97 Mechanical Ventilator 35.00 12/31/20 22:00 Mechanical Ventilator 35.00 12/31/20 21:52 36.3 12/31/20 21:00 55 17 97 Mechanical Ventilator 45.00 12/31/20 21:00 36.4 12/31/20 20:50 98 Mechanical Ventilator 45 12/31/20 20:40 Mechanical Ventilator 45.00 12/31/20 20:00 36.7 12/31/20 20:00 56 18 97 Mechanical Ventilator 50.00 12/31/20 19:28 36.8 55 18 97 Mechanical Ventilator 50.00 12/31/20 19:22 56 109/79 12/31/20 19:00 56 18 98 Mechanical Ventilator 65.00 12/31/20 19:00 56 12/31/20 19:00 56 18 98 60 12/31/20 19:00 36.8 12/31/20 18:00 36.8 58 17 98 Mechanical Ventilator 65.00 12/31/20 18:00 36.9 12/31/20 17:00 36.6 12/31/20 17:00 36.7 58 18 98 Mechanical Ventilator 65.00 12/31/20 16:41 36.6 58 112/91 12/31/20 16:00 36.6 12/31/20 16:00 58 17 97 Mechanical Ventilator 65.00 12/31/20 16:00 98 Mechanical Ventilator 65 12/31/20 15:54 36.6 12/31/20 15:00 36.6 12/31/20 15:00 58 17 98 Mechanical Ventilator 65.00 12/31/20 14:37 58 18 98 60 12/31/20 14:37 111/79 12/31/20 14:27 36.5 60 107/75 12/31/20 14:12 36.5 58 107/76 12/31/20 14:00 60 17 98 Mechanical Ventilator 65.00 12/31/20 14:00 36.5 12/31/20 13:01 109/75 12/31/20 13:00 36.4 12/31/20 13:00 61 18 98 Mechanical Ventilator 65.00 12/31/20 12:40 64 12/31/20 12:00 36.4 12/31/20 12:00 96 Mechanical Ventilator 65 12/31/20 12:00 69 18 97 Mechanical Ventilator 65.00 12/31/20 11:00 Mechanical Ventilator 65.00 12/31/20 11:00 36.2 12/31/20 11:00 78 18 97 Mechanical Ventilator 60.00 12/31/20 10:50 124/89 12/31/20 10:40 75 19 96 60 12/31/20 10:00 65 18 95 Mechanical Ventilator 60.00 12/31/20 10:00 34.9 12/31/20 09:19 125/89 12/31/20 09:00 35.2 12/31/20 09:00 63 18 95 Mechanical Ventilator 60.00 12/31/20 08:00 62 18 95 Mechanical Ventilator 60.00 12/31/20 08:00 92 Mechanical Ventilator 60 12/31/20 08:00 35.2 12/31/20 07:00 73 17 95 Mechanical Ventilator 60.00 12/31/20 07:00 35.4 12/31/20 06:45 60.00 12/31/20 06:40 73 12/31/20 06:34 73 18 98 100 12/31/20 06:00 36.7 12/31/20 06:00 68 17 98 Mechanical Ventilator 100.00 12/31/20 05:20 76 126/100 12/31/20 05:06 36.7 12/31/20 05:00 75 28 98 Mechanical Ventilator 100.00 12/31/20 04:55 36.7 12/31/20 04:49 76 126/100 I & O 01/01/21 07:00 Intake Total 1511 ml Output Total 2450 ml Balance -939 ml Height & Weight Height: '" Weight: lbs. oz. kg; 26.64 BMI Method: General Appearance: Other (Intubated and sedated) Respiratory: Lungs Clear, No Accessory Muscle Use, Respiratory Distress (Ventilated using an orotracheal intubated tube) Cardiovascular: Regular Rate, Rhythm (Heart rate in the 50s), Normal Peripheral Pulses, Bradycardia Capillary Refill: Greater Than 3 Seconds Peripheral Pulses: 2+ Radial Pulses (R), 2+ Radial Pulses (L) Gastrointestinal: soft, abnormal bowel sounds (Absent) Results Lab Laboratory Tests 12/30/20 05:30 12/30/20 08:07 12/30/20 11:20 12/30/20 13:35 12/30/20 15:10 12/30/20 17:27 12/30/20 23:39 12/30/20 23:40 12/31/20 00:22 12/31/20 02:00 12/31/20 05:00 12/31/20 12:45 12/31/20 17:30 01/01/21 03:05 Assessment/Plan Assessment/Plan Acute respiratory failure -Propofol 40, fentanyl 75, Versed 5, -D/C Nimbex -Vent intubated 12/29 -VT 580, 18, 5, Fi02 100% - Per EICU COVID 19 -s/p CVP S/p Cardiac arrest x 2 -- Pt coded again last night secondary to V Fib x 2 rounds (2 epi and defib x 1) -Currently on Artic Sun -- Pt is being rewarmed per EICU -Artic Sun was started at 1230pm 12/29 -Rewarming currently -EICU managed pt through the night -Head CT is negative -CT of chest shows COVID changes Possible anoxic encephalopathy -Continue to monitor for now Hypotension - resolved -Check Echo this AM -Neosyn, and Levophed -- Off pressors -Solucortef -- decrease to Q12 Cardiomyopathy EF 35% -Cardiology following -Plan heart cath Blood per OG tube r/o GIB -Continue protonix to 40mg BID. Metabolic lactic acidosis -IVF -Monitor Bradycardic - - Cardiology is following Sepsis -Cefepime - IVF - LR 150 -- Decrease to 75 -Timmons cultures Shock liver -Monitor JARVIS BROOKS DO Jan 01, 2021 04:53
[2021-01-01 05:29] LABS: TOTAL PROTEIN 4.5 GM/DL (6.4-8.2)
[2021-01-01] MEDS: LACTATED RINGERS 1,000 ML IV SCH (05:29)
[2021-01-01 05:31] LABS: BILIRUBIN,TOTAL 0.3 MG/DL (0.1-1.0)
[2021-01-01 05:32] LABS: ALKALINE PHOSPHATASE 55 U/L (40-136)
[2021-01-01 05:35] LABS: ALANINE AMINOTRANSFERASE 157 U/L (0-55)
[2021-01-01 05:40] LABS: ALBUMIN 2.4 GM/DL (3.2-4.5)
[2021-01-01] MEDS: LACRI-LUBE OPTHALMIC OINT 3.5 GM TUBE OU SCH ×4 (05:47→21:39)
[2021-01-01] MEDS: NOREPINEPHRINE 8 MG/250 ML 250 ML IV SCH ×2 (05:47→21:38)
[2021-01-01 06:30] VITALS: BP 116/74
--- NOTE | 2021-01-01 07:55 | Physical Therapy Progress Note ---
Therapy Progress Note Patient intubated and sedated. PT will continue to monitor patient status. NANO GARCIA PT Jan 01, 2021 07:55
[2021-01-01] MEDS ORDERED: SODIUM PHOSPHATE INJ 30 MM in NS (IVPB) 250 ML INJ ONE (08:00)
[2021-01-01] MEDS: AMIODARONE 450 MG/250 ML D5W EXCEL IV SCH ×4 (08:21→15:32)
[2021-01-01 08:27] LABS: ABG BASE EXCESS -2.3 MMOL/L (-2.5-2.5); ABG OXYGEN SATURATION 94 % (94-100); ABG PCO2 33 MMHG (35-45); ABG PH 7.43 (7.37-7.43); ABG PO2 70 MMHG (79-93); ABG TCO2 22.4 MMOL/L (21.0-31.0)
[2021-01-01 08:28] LABS: ALLENS TEST ART LINE; INSPIRED O2 100%; PATIENT TEMP 36.6; VENTILATOR YES
[2021-01-01 08:31] LABS: BASOPHILS % (AUTO) 0 % (0-10); EOSINOPHILS % (AUTO) 0 % (0-10); HEMATOCRIT 33 % (40-54); HEMOGLOBIN 10.6 g/dL (13.3-17.7); LYMPHOCYTES # (AUTO) 7.7 10^3/uL (1.0-4.0); LYMPHOCYTES % (AUTO) 46 % (12-44); MEAN CORPUSCULAR HEMOGLOBIN 29 pg (25-34); MEAN CORPUSCULAR HGB CONC 33 g/dL (32-36); MEAN CORPUSCULAR VOLUME 88 fL (80-99); MEAN PLATELET VOLUME 10.7 fL (9.0-12.2); MONOCYTES # (AUTO) 1.4 10^3/uL (0.0-1.0); MONOCYTES % (AUTO) 9 % (0-12); NEUTROPHILS # (AUTO) 7.2 10^3/uL (1.8-7.8); NEUTROPHILS % (AUTO) 43 % (42-75); PLATELET COUNT 256 10^3/uL (130-400); WHITE BLOOD COUNT 16.6 10^3/uL (4.3-11.0)
--- NOTE | 2021-01-01 08:33 | Diagnostic Imaging Report ---
INDICATION: Dyspnea. TECHNIQUE: Single view chest 3:46 AM. CORRELATION STUDY: 12/31/2020 FINDINGS: Endotracheal tube, gastric tube, and right IJ central line all remain in place. Heart size and mediastinum are stable. There has been improvement and near clearing of the previously noted areas of central pulmonary opacity. Likely reflective of improved pulmonary edema. Some residual edema, infiltrate and/or atelectasis left costophrenic angle with trace pleural effusion. IMPRESSION: 1. Stable support lines and tubes. 2. Improvement in the bilateral pulmonary opacities. Given significant interval change, likely reflects improvement in central pulmonary edema. Dictated by: Dictated on workstation # [id number]
[2021-01-01 08:36] LABS: ALBUMIN 2.6 GM/DL (3.2-4.5); CHLORIDE 111 MMOL/L (98-107); SODIUM 141 MMOL/L (135-145)
[2021-01-01 08:37] LABS: CALCIUM 7.7 MG/DL (8.5-10.1); INR 1.1 (0.8-1.4); PROTHROMBIN TIME PATIENT 15.1 SEC (12.2-14.7)
[2021-01-01 08:38] LABS: GLUCOSE 147 MG/DL (70-105)
[2021-01-01 08:39] LABS: CARBON DIOXIDE 18 MMOL/L (21-32)
[2021-01-01 08:40] LABS: BILIRUBIN,TOTAL 0.3 MG/DL (0.1-1.0)
[2021-01-01 08:42] LABS: ALKALINE PHOSPHATASE 73 U/L (40-136); CREATININE SERUM 0.71 MG/DL (0.60-1.30); GFR ESTIMATED > 60
[2021-01-01 08:43] LABS: BUN/CREATININE RATIO 21
[2021-01-01 08:45] LABS: ALANINE AMINOTRANSFERASE 186 U/L (0-55)
[2021-01-01 08:59] LABS: PHOSPHORUS 2.1 MG/DL (2.3-4.7)
[2021-01-01] MEDS ORDERED: ASPIRIN E.C. 81 MG (ECOTRIN) TAB PO SCH (09:00)
[2021-01-01 09:02] LABS: MAGNESIUM 2.4 MG/DL (1.6-2.4)
--- NOTE | 2021-01-01 09:06 | Occ Therapy Progress Note ---
Therapy Progress Note Pt. continues on mechanical ventilator support and sedation. Will evaluate when pt. is medically stable. [id number] FEDE JANSEN OT Jan 01, 2021 09:06
[2021-01-01] MEDS ORDERED: MAGNESIUM 1 GM/100 ML IVPB 100 ML IV ONE ×2 (09:10→09:45)
[2021-01-01] MEDS ORDERED: ASPIRIN 81 MG CHEW (CHILDREN'S ASA) ONE (09:10)
[2021-01-01] MEDS: HYDROCORTISONE 100 MG/2 ML (Solu-CORTEF) VIAL IV SCH ×2 (09:41→20:22)
[2021-01-01] MEDS: PANTOPRAZOLE 40 MG (PROTONIX) VIAL IV SCH ×2 (09:41→20:22)
[2021-01-01] MEDS ORDERED: LACTATED RINGERS 1,000 ML IV ONE (09:45)
[2021-01-01] MEDS: ASPIRIN 81 MG CHEW (CHILDREN'S ASA) PO SCH (09:52)
[2021-01-01 10:16] VITALS: BP 109/74
[2021-01-01] MEDS: ENOXAPARIN 100 MG/1 ML (LOVENOX) SYR SC SCH ×2 (10:28→21:39)
[2021-01-01] MEDS: fentaNYL 1,250 MCG/NS 250 ML DRIP IV SCH ×2 (10:29→18:58)
[2021-01-01] MEDS: MAGNESIUM SULFATE DRIP 500 ML IV SCH (10:31)
[2021-01-01] MEDS ORDERED: DEXTROSE 50% 50 ML (IMS) SYR IV NR (12:00)
--- NOTE | 2021-01-01 14:09 | Cardiology Progress Note ---
Subjective Date Seen by Provider: Jan 01, 2021 Time Seen by Provider: 08:00 Subjective/Events-last exam Patient was seen and evaluated, had another episode of ventricular tachycardia this morning code was called, received 1 shock at 200 J, started on amnio drip Review of Systems General: Other (Unable to provide review of system) Focused Exam Lactate Level 12/31/20 07:50: Lactic Acid Level 1.77 01/01/21 08:07: Lactic Acid Level 3.70*H 01/01/21 13:24: Time of Focused Exam: 10:03 Lactic Acid Level Laboratory Tests Test 01/01/21 13:24 Objective-Cardiology Exam Last Set of Vital Signs Vital Signs 01/01/21 01/01/21 01/01/21 01/01/21 10:16 10:31 12:40 13:00 Temp 37.5 B/P (MAP) 119/77 Pulse Ox 95 O2 Delivery Mechanical Ventilator O2 Flow Rate 40.00 FiO2 40 Capillary Refill : Greater Than 3 Seconds I&O Intake and Output 01/01/21 00:00 Intake Total 2879 ml Output Total 3075 ml Balance -196 ml Intake Oral 0 ml IV Total 2819 ml Other 60 ml Output Urine Total 3075 ml General: Other (Sedated and intubated) HEENT: Atraumatic Lungs: Normal Air Movement Heart: Normal S1, Normal S2, Other (Heart rate is better) Abdomen: No Tenderness Extremities: No Clubbing, No Cyanosis Skin: No Rashes Neuro: Other (Sedated and intubated) Psych/Mental Status: Other (Sedated and intubated) Results Lab Laboratory Tests 12/31/20 17:30 01/01/21 03:05 01/01/21 08:07 A/P-Cardiology Admission Diagnosis Acute respiratory failure COVID-19 infection Cardiac arrest Ventilator dependent Assessment/Plan Acute respiratory failure, ventilator dependent, managed by Dr. Garcia COVID-19 infection diagnosed last week Status post cardiac arrest, chest compression were initiated at home by his then by EMT, brought to the hospital, currently ventilator dependent. Had 1 episode of ventricular tachycardia on the public health specialist of December 31, 2020 required chest compression and a shock another episode occurred on January 01, 2021 required chest compressions and shocks return to sinus rhythm immediately, I started him on amiodarone bolus and a drip. Transient multiple episode of sinus bradycardia, having episode of severe b radycardia, I started him on theophylline and it was discontinued by eICU physician for unknown reason Questionable underlying anoxic brain injury due to to the above-mentioned events. Continue monitoring for now, managed by primary care team Hypotensive shock, blood pressure is better, improving slowly Sepsis, started on cefepime and vancomycin Shock liver secondary to cardiac arrest, continue to monitor FLOWER STRONG MD Jan 01, 2021 14:09
[2021-01-01 14:28] VITALS: BP 117/74
[2021-01-01] MEDS ORDERED: EPINEPHrine 0.1 MG/ML 10 ML (HOSPIRA) SYR IJ ONE (14:30)
[2021-01-01] MEDS ORDERED: AMIODARONE 450 MG/9 ML (CORDARONE) VIAL IV ONE (14:30)
[2021-01-01] MEDS ORDERED: ATROPINE INJECTION 1 MG/10 ML SYR (ABBOTT) INJ ONE (14:30)
[2021-01-01] MEDS ORDERED: D5W 250 ML (EXCEL) BAG IV ONE (14:30)
[2021-01-01 15:59] LABS: BASOPHILS % (AUTO) 0 % (0-10); EOSINOPHILS % (AUTO) 0 % (0-10); HEMATOCRIT 30 % (40-54); HEMOGLOBIN 9.7 g/dL (13.3-17.7); LYMPHOCYTES # (AUTO) 1.6 10^3/uL (1.0-4.0); LYMPHOCYTES % (AUTO) 14 % (12-44); MEAN CORPUSCULAR HEMOGLOBIN 29 pg (25-34); MEAN CORPUSCULAR HGB CONC 33 g/dL (32-36); MEAN CORPUSCULAR VOLUME 87 fL (80-99); MEAN PLATELET VOLUME 9.9 fL (9.0-12.2); MONOCYTES # (AUTO) 0.7 10^3/uL (0.0-1.0); MONOCYTES % (AUTO) 6 % (0-12); NEUTROPHILS % (AUTO) 79 % (42-75); PLATELET COUNT 263 10^3/uL (130-400); WHITE BLOOD COUNT 11.4 10^3/uL (4.3-11.0)
[2021-01-01 16:12] LABS: CHLORIDE 109 MMOL/L (98-107); POTASSIUM 3.5 MMOL/L (3.6-5.0); SODIUM 140 MMOL/L (135-145)
[2021-01-01 16:14] LABS: CALCIUM 7.1 MG/DL (8.5-10.1); GLUCOSE 105 MG/DL (70-105)
[2021-01-01 16:16] LABS: CARBON DIOXIDE 21 MMOL/L (21-32)
[2021-01-01 16:18] LABS: CREATININE SERUM 0.58 MG/DL (0.60-1.30); GFR ESTIMATED > 60; PHOSPHORUS 2.2 MG/DL (2.3-4.7)
[2021-01-01 16:19] LABS: BUN/CREATININE RATIO 24
[2021-01-01 16:20] LABS: MAGNESIUM 2.1 MG/DL (1.6-2.4)
[2021-01-01] MEDS ORDERED: HEParin 1000 UNIT/ML (10ML VIAL) FOR BOLUS ONE (16:22)
[2021-01-01] MEDS ORDERED: ATROPINE INJECTION 1 MG/10 ML SYR (ABBOTT) ONE (16:22)
[2021-01-01] MEDS ORDERED: EPINEPHrine 0.1 MG/ML 10 ML (HOSPIRA) SYR ONE (16:23)
[2021-01-01] MEDS ORDERED: HEParin (CATH LAB) 2,000 ML IV ONE (16:23)
[2021-01-01] MEDS ORDERED: LIDOCAINE 1% INJ 20 ML 20 ML VIAL ONE (16:23)
[2021-01-01 17:24] LABS: INR 1.1 (0.8-1.4); PROTHROMBIN TIME PATIENT 14.4 SEC (12.2-14.7)
--- NOTE | 2021-01-01 18:14 | Cardiac Cath Report ---
Cardiac Cath Report Physician (s)/[employer] Manager (s) Physician FLOWER STRONG MD Pre-Procedure Diagnosis Pre-Procedure Diagnosis: Sudden , ventricular tachycardia Post-Procedure Note Procedure Start Date: Jan 01, 2021 Name of Procedure: Left heart catheterization Findings/Procedure Note PROCEDURE NOTE: Patient suffered from sudden , he is ventilator dependent, has been having recurrent ventricular tachycardia and significant EKG changes, decided to proceed with cardiac catheterization possible PTCA. After explaining the procedure to the patient, all pros and cons were explained, all questions were answered. The patient signed the consent and then he was placed on the cardiac catheterization laboratory. Groin was prepped SL fashion local anesthesia was used. Sheath placed in the right femoral artery. Hollie right and left catheter were used to access the coronary system. Pigtail was used to access the left ventricular cavity. Left ventriculogram was done At the end of the procedure the sheath was removed. Closure device was deployed FINDINGS: Hemodynamics LV 90/14, end-diastolic pressure of 14 Aorta 88/63 mean of 74 ANATOMY: Left Main has no obstructive disease Left Anterior Descending has no significant obstructive disease taper down distally into very small artery Left Circumflex has no significant obstructive disease Right Coronory Artery has no significant obstructive disease LV Gram is dilated with hypokinesia noted diffusely more pronounced at the anterior wall and apex ejection fraction 30% CONCLUSION: 1. Severe left ventricular hypokinesia more pronounced at the anterior wall and apex, ejection fraction 30% 2. No significant obstructive disease in the coronary system DISCUSSION AND RECOMMENDATION: Continue to maximize therapy at this point. No intervention is recommended Anesthesia Type: Conscious Sedation Estimated blood loss (mL): 20 ml Contrast Amount: 52 ml Total Radiation Dose: 395 mGy Post-Procedure Diagnosis Post-operative diagnosis: Ventricular tachycardia Ventricular fibrillation Sudden Cardiomyopathy FLOWER STRONG MD Jan 01, 2021 18:14
[2021-01-01 18:48] VITALS: BP 131/80
[2021-01-01] MEDS ORDERED: D5 LR IV SOLUTION 1,000 ML IV ONE (19:55)
[2021-01-01] MEDS ORDERED: D5 LR IV SOLUTION 1,000 ML IV SCH (20:00)
[2021-01-01] MEDS: D5 LR IV SOLUTION 1,000 ML IV SCH (20:21)
[2021-01-01 22:58] VITALS: BP 154/86
[2021-01-02] MEDS: POTASSIUM CL 10MEQ/50ML IVPB 50 ML IV SCH (00:05)
[2021-01-02] MEDS: fentaNYL 1,250 MCG/NS 250 ML DRIP IV SCH ×2 (01:35→08:17)
[2021-01-02 01:56] LABS: ABG BASE EXCESS 1.2 MMOL/L (-2.5-2.5); ABG OXYGEN SATURATION 98 % (94-100); ABG PCO2 32 MMHG (35-45); ABG PH 7.49 (7.37-7.43); ABG PO2 102 MMHG (79-93); ABG TCO2 25.5 MMOL/L (21.0-31.0)
[2021-01-02 01:57] LABS: ALLENS TEST ART LINE; INSPIRED O2 40%; PATIENT TEMP 36.2; VENTILATOR YES
[2021-01-02 01:58] LABS: BASOPHILS % (AUTO) 0 % (0-10); EOSINOPHILS % (AUTO) 0 % (0-10); HEMATOCRIT 27 % (40-54); HEMOGLOBIN 9.1 g/dL (13.3-17.7); LYMPHOCYTES # (AUTO) 1.4 10^3/uL (1.0-4.0); LYMPHOCYTES % (AUTO) 15 % (12-44); MEAN CORPUSCULAR HEMOGLOBIN 29 pg (25-34); MEAN CORPUSCULAR HGB CONC 33 g/dL (32-36); MEAN CORPUSCULAR VOLUME 87 fL (80-99); MEAN PLATELET VOLUME 10.1 fL (9.0-12.2); MONOCYTES # (AUTO) 0.4 10^3/uL (0.0-1.0); MONOCYTES % (AUTO) 4 % (0-12); NEUTROPHILS # (AUTO) 7.4 10^3/uL (1.8-7.8); NEUTROPHILS % (AUTO) 80 % (42-75); PLATELET COUNT 234 10^3/uL (130-400); WHITE BLOOD COUNT 9.3 10^3/uL (4.3-11.0)
[2021-01-02 02:08] LABS: CHLORIDE 110 MMOL/L (98-107); POTASSIUM 3.2 MMOL/L (3.6-5.0); SODIUM 141 MMOL/L (135-145)
[2021-01-02 02:09] LABS: CALCIUM 7.1 MG/DL (8.5-10.1)
[2021-01-02 02:10] LABS: GLUCOSE 123 MG/DL (70-105)
[2021-01-02 02:12] LABS: CARBON DIOXIDE 21 MMOL/L (21-32)
[2021-01-02 02:14] LABS: CREATININE SERUM 0.53 MG/DL (0.60-1.30); GFR ESTIMATED > 60; PHOSPHORUS 1.8 MG/DL (2.3-4.7)
[2021-01-02 02:15] LABS: BUN/CREATININE RATIO 25
[2021-01-02 02:17] LABS: MAGNESIUM 2.1 MG/DL (1.6-2.4)
[2021-01-02 02:40] VITALS: BP 102/70
[2021-01-02] MEDS: RT-ALBUTEROL INHALER HFA (VENTOLIN HFA) 18 GM IH SCH ×3 (02:40→10:35)
[2021-01-02] MEDS: LACRI-LUBE OPTHALMIC OINT 3.5 GM TUBE OU SCH ×2 (04:15→11:52)
[2021-01-02] MEDS: MIDAZOLAM DRIP PRE-MIX 100 ML IV SCH (04:15)
[2021-01-02] MEDS: MEROPENEM 1,000 MG in WATER (STERILE) FOR INJECTION 20 ML IV SCH ×2 (04:15→09:57)
[2021-01-02] MEDS: PROPOFOL DRIP (ICU) 100 ML IV SCH ×2 (04:42→11:39)
--- NOTE | 2021-01-02 05:04 | Cardiac Procedure Note-CS/ASA ---
Pre-Procedure Note Pre-Op Procedure Note H&P Reviewed The H&P was reviewed, patient examined and no changes noted. Date H&P Reviewed: Jan 01, 2021 Time H&P Reviewed: 16:00 Conscious Sedation Pre-Proced Time 16:00 ASA Score 3 For ASA 3 and 4: Consider anesthesia and medical clearance. Also, for patients with a history of failed moderate sedation consider anesthesia. Airway Lungs Heart ASA score ASA 1: a normal healthy patient ASA 2: a patient with a mild systemic disease (mid diabetes, controlled hypertension, obesity ASA 3: a patient with a severe systemic disease that limits activity (angina, COPD, prior Myocardial infarction) x ASA 4: a patient with an incapacitating disease that is a constant threat to life (CHF, renal failure) ASA 5: a moribund patient not expected to survive 24 hrs. (ruptured aneurysm) ASA 6: a declared brain- patient whose organs are being harvested. For emergent operations, add the letter E after the classification Mallampati Classification Grade 3 Sedation Plan Analgesia, Amnesia, Plan communicated to team members, Discussed options with patient/fam, Discussed risks with patient/fam The patient is an appropriate candidate to undergo the planned procedure, sedation, and anesthesia. The patient immediately re-assessed prior to indication. FLOWER STRONG MD Jan 02, 2021 05:04
--- NOTE | 2021-01-02 05:14 | Pulmonary Progress Note ---
Subjective Time Seen by a Provider: 05:10 Sepsis Event Evaluation Height, Weight, BMI Height: '" Weight: lbs. oz. kg; 26.64 BMI Method: Focused Exam Lactate Level 01/01/21 08:07: Lactic Acid Level 3.70*H 01/01/21 13:24: Lactic Acid Level 2.48*H 01/01/21 15:45: Lactic Acid Level 1.24 Time of Focused Exam: 10:03 Exam Exam Vital Signs Date Time Temp Pulse Resp B/P (MAP) Pulse Ox O2 Delivery O2 Flow Rate FiO2 01/02/21 04:42 56 01/02/21 04:30 36.5 Mechanical Ventilator 40.00 01/02/21 04:15 53 01/02/21 04:00 96 Mechanical Ventilator 40 01/02/21 04:00 60 95 Mechanical Ventilator 40.00 01/02/21 04:00 36.5 01/02/21 03:00 53 95 Mechanical Ventilator 40.00 01/02/21 03:00 18 01/02/21 03:00 36.2 01/02/21 02:40 50 18 96 40 01/02/21 02:00 44 97 Mechanical Ventilator 40.00 01/02/21 02:00 36.0 01/02/21 01:21 Mechanical Ventilator 40.00 01/02/21 01:00 36.3 01/02/21 01:00 43 97 Mechanical Ventilator 45.00 01/02/21 01:00 43 01/02/21 01:00 18 01/02/21 00:02 97 Mechanical Ventilator 45 01/02/21 00:00 48 98 Mechanical Ventilator 45.00 01/02/21 00:00 18 01/01/21 23:41 134/86 01/01/21 23:30 36.5 Mechanical Ventilator 01/01/21 23:00 36.6 01/01/21 23:00 42 8 98 Mechanical Ventilator 50.00 01/01/21 23:00 18 01/01/21 22:58 45 18 97 50 01/01/21 22:00 50 6 98 Mechanical Ventilator 50.00 01/01/21 22:00 18 01/01/21 21:52 95 Mechanical Ventilator 50.00 01/01/21 21:51 36.6 01/01/21 21:40 97 Mechanical Ventilator 60.00 01/01/21 21:00 18 01/01/21 21:00 36.7 01/01/21 21:00 96 Mechanical Ventilator 70.00 01/01/21 21:00 46 5 99 Mechanical Ventilator 70.00 01/01/21 20:00 43 12 100 Mechanical Ventilator 80.00 01/01/21 20:00 36.6 01/01/21 20:00 18 01/01/21 20:00 98 Mechanical Ventilator 80 01/01/21 19:00 18 01/01/21 19:00 53 01/01/21 19:00 51 24 97 Mechanical Ventilator 80.00 01/01/21 19:00 36.6 Mechanical Ventilator 80.00 01/01/21 19:00 36.7 01/01/21 18:48 55 23 96 100 01/01/21 18:30 89 Mechanical Ventilator 80.00 01/01/21 18:00 36.8 01/01/21 17:00 55 18 96 Mechanical Ventilator 40.00 01/01/21 17:00 37.1 01/01/21 16:59 62 117/74 01/01/21 16:58 62 23 117/74 01/01/21 16:02 37.2 01/01/21 16:00 94 Mechanical Ventilator 40 01/01/21 16:00 56 17 95 Mechanical Ventilator 40.00 01/01/21 16:00 37.2 01/01/21 15:00 37.5 01/01/21 15:00 62 23 93 Mechanical Ventilator 40.00 01/01/21 14:28 54 18 95 40 01/01/21 14:00 56 17 96 Mechanical Ventilator 40.00 01/01/21 14:00 37.5 01/01/21 13:08 66 01/01/21 13:00 37.5 01/01/21 13:00 63 14 92 Mechanical Ventilator 40.00 01/01/21 12:40 95 Mechanical Ventilator 40.00 01/01/21 12:00 63 18 93 Mechanical Ventilator 60.00 01/01/21 12:00 37.6 01/01/21 12:00 94 Mechanical Ventilator 40 01/01/21 11:32 37.5 01/01/21 11:00 64 16 94 Mechanical Ventilator 60.00 01/01/21 11:00 37.5 01/01/21 10:31 64 119/77 01/01/21 10:16 61 24 95 40 01/01/21 10:06 98 Mechanical Ventilator 60.00 01/01/21 10:00 37.4 01/01/21 10:00 63 18 98 Mechanical Ventilator 80.00 01/01/21 09:53 100 Mechanical Ventilator 80.00 01/01/21 09:00 37.2 01/01/21 09:00 64 15 98 Mechanical Ventilator 100.00 01/01/21 08:10 36.6 01/01/21 08:00 109 42 98 Mechanical Ventilator 100.00 01/01/21 08:00 37.0 01/01/21 07:45 94 Mechanical Ventilator 28 01/01/21 07:00 39 17 96 Mechanical Ventilator 28.00 01/01/21 07:00 36.5 01/01/21 06:46 42 01/01/21 06:36 42 17 96 Mechanical Ventilator 28.00 01/01/21 06:30 43 18 96 28 01/01/21 06:00 48 18 96 Mechanical Ventilator 30.00 01/01/21 06:00 36.7 01/01/21 05:15 36.9 I & O 01/02/21 07:00 Intake Total 3609 ml Output Total 1900 ml Balance 1709 ml Height & Weight Height: '" Weight: lbs. oz. kg; 26.64 BMI Method: General Appearance: No Apparent Distress, WD/WN, Other (intubated and sedated) HEENT: Other (endotracheal tube in place) Respiratory: Lungs Clear, No Respiratory Distress, Other (intubated and mechanically ventilated) Cardiovascular: No Murmur, Normal Peripheral Pulses, Bradycardia (regular rhythm) Capillary Refill: Greater Than 3 Seconds Peripheral Pulses: 2+ Radial Pulses (R), 2+ Radial Pulses (L) Gastrointestinal: soft, abnormal bowel sounds (Absent) Extremity: Normal Capillary Refill, Normal Inspection, No Pedal Edema Neurologic/Psychiatric: Other (sedated) Skin: Normal Color, Warm/Dry Results Lab Laboratory Tests 12/31/20 12:45 12/31/20 17:30 01/01/21 03:05 01/01/21 08:07 01/01/21 15:45 01/02/21 01:40 Assessment/Plan Assessment/Plan Acute respiratory failure -Propofol 30, fentanyl 200, Versed 8, -D/C Versed -Decrease Fentanyl by 1/2 -Vent intubated 12/29 -VT 500, 18, 5, Fi02 40% - COVID 19 -s/p CVP S/p Cardiac arrest x 2 -- Pt coded again last night secondary to V Fib x 2 rounds (2 epi and defib x 1) -Currently on Artic Sun -- Pt is being rewarmed per EICU -Artic Sun was started at 1230pm 12/29 -Rewarming currently -EICU managed pt through the night -Head CT is negative -CT of chest shows COVID changes Hypoglycemia -D5 LR at 75 Possible anoxic encephalopathy -Continue to monitor for now Hypotension - resolved -Check Echo this AM -Neosyn, and Levophed -- Off pressors -Solucortef -- decrease to Q12 Cardiomyopathy EF 35% -Cardiology following -Plan heart cath Blood per OG tube r/o GIB -Continue protonix to 40mg BID. Metabolic lactic acidosis -IVF -Monitor Bradycardic - - Cardiology is following Sepsis -Cefepime - IVF - LR 150 -- Decrease to 75 -Timmons cultures Shock liver -Monitor JARVIS BROOKS DO Jan 02, 2021 05:14
[2021-01-02] MEDS: AMIODARONE 450 MG/250 ML D5W EXCEL IV SCH ×2 (05:22)
[2021-01-02 07:03] VITALS: BP 133/95
[2021-01-02] MEDS: MAGNESIUM 1 GM/100 ML IVPB 100 ML IV SCH ×2 (07:52→07:54)
[2021-01-02] MEDS: D5 LR IV SOLUTION 1,000 ML IV SCH (07:53)
[2021-01-02] MEDS: HYDROCORTISONE 100 MG/2 ML (Solu-CORTEF) VIAL IV SCH (07:54)
[2021-01-02] MEDS: ASPIRIN 81 MG CHEW (CHILDREN'S ASA) PO SCH (07:54)
[2021-01-02] MEDS: PANTOPRAZOLE 40 MG (PROTONIX) VIAL IV SCH (07:54)
[2021-01-02] MEDS ORDERED: POTASSIUM PHOSPHATE INJ 30 MM in NS (IVPB) 250 ML IV ONE (08:00)
--- NOTE | 2021-01-02 08:06 | Physical Therapy Progress Note ---
Therapy Progress Note Patient intubated and sedated. PT will continue to monitor patient status. MARLENI AC PT Jan 02, 2021 08:06
--- NOTE | 2021-01-02 08:08 | Diagnostic Imaging Report ---
INDICATION: Shortness of breath Portable chest 3:55 AM There is an ET tube projecting over the trachea. NG tube appears to enter the stomach. Right IJ central line tip projects over the SVC. There is increased density at both lung bases that could be combination of effusion, infiltrate and/or atelectasis. IMPRESSION: Increasing density at both lung bases compared to the previous day could be due to combination of infiltrate, atelectasis and/or effusion. Dictated by: Dictated on workstation # [id number]
[2021-01-02] MEDS: NOREPINEPHRINE 8 MG/250 ML 250 ML IV SCH (08:53)
[2021-01-02] MEDS: ENOXAPARIN 100 MG/1 ML (LOVENOX) SYR SC SCH (09:57)
[2021-01-02 10:36] VITALS: BP 133/95
[2021-01-02 11:39] VITALS: BP 133/95
[2021-01-02] MEDS: MAGNESIUM SULFATE DRIP 500 ML IV SCH (11:52)
--- NOTE | 2021-01-02 12:05 | Occ Therapy Progress Note ---
Therapy Progress Note Will continue to monitor pt. due to being on ventilator support and sedation. 1205 FEDE JANSEN OT Jan 02, 2021 12:05
[2021-01-02 12:19] LABS: CREATINE KINASE MB 2.2 NG/ML (<6.6)
--- NOTE | 2021-01-02 13:35 | Cardiology Progress Note ---
Subjective Date Seen by Provider: Jan 02, 2021 Time Seen by Provider: 08:00 Subjective/Events-last exam Patient is sedated and intubated, unable to provide any history Review of Systems General: Other (Unable to provide review of system) Focused Exam Lactate Level 01/01/21 08:07: Lactic Acid Level 3.70*H 01/01/21 13:24: Lactic Acid Level 2.48*H 01/01/21 15:45: Lactic Acid Level 1.24 Time of Focused Exam: 10:03 Objective-Cardiology Exam Last Set of Vital Signs Vital Signs 01/02/21 01/02/21 01/02/21 01/02/21 11:39 11:53 14:00 14:01 Temp 37.3 Pulse 56 Resp 12 B/P (MAP) 133/95 Pulse Ox 98 O2 Delivery Mechanical Ventilator O2 Flow Rate 30.00 FiO2 30 Capillary Refill : Greater Than 3 Seconds I&O l Intake and Output 01/02/21 00:00 Intake Total 3159 ml Output Total 1950 ml Balance 1209 ml Intake Oral 0 ml IV Total 3039 ml Other 120 ml Output Urine Total 1950 ml General: Other (Sedated and intubated) HEENT: Atraumatic Lungs: Normal Air Movement Heart: Normal S1, Normal S2, Other (Heart rate is better) Abdomen: No Tenderness Extremities: No Clubbing, No Cyanosis Skin: No Rashes Neuro: Other (Sedated and intubated) Psych/Mental Status: Other (Sedated and intubated) Results Lab Laboratory Tests 01/02/21 01:40 A/P-Cardiology Admission Diagnosis Acute respiratory failure COVID-19 infection Cardiac arrest Ventilator dependent Assessment/Plan Acute respiratory failure, ventilator dependent, managed by Dr. Garcia Status post cardiac arrest, chest compression were initiated at home by his then by EMT, brought to the hospital, currently ventilator dependent. Had 1 episode of ventricular tachycardia on the refuge worker of December 31, 2020 required chest compression and a shock another episode occurred on January 01, 2021 required chest compressions and shocks return to sinus rhythm immediately, I started him on amiodarone bolus and a drip.I discussed the management plan with Dr. Malone at , there is underlying long QT, suggestion for initiating atrial pacing at a higher rate to prevent the episode of torsade de pointes COVID-19 infection diagnosed last week, questionable inflammatory reaction involving the lung and the heart, troponin has been normal except for today, myoglobin is normal. Recommendation to use high-dose steroid 1 g daily for 3 days then tapering down dose Transient multiple episode of sinus bradycardia, having episode of severe bradycardia, I started him on theophylline and it was discontinued by eICU physician for unknown reason Questionable underlying anoxic brain injury due to to the above-mentioned events. Continue monitoring for now, managed by primary care team Hypotensive shock, blood pressure is better, improving slowly Sepsis, started on cefepime and vancomycin Shock liver secondary to cardiac arrest, continue to monitor FLOWER STRONG MD Jan 02, 2021 13:35
[2021-01-02] MEDS ORDERED: NS IV 500 ML 500 ML ONE (14:32)
== END 2021-01-02 15:20 | disposition short-term general hospital (02) | DRG 870 ==
LOC: EDUNIT# 08:18 → ER 08:20 → ICU 09:55
PROVIDERS: ADMIT Internal Medicine; ATTEND Internal Medicine
PROC: 5A1955Z Respiratory Ventilation, Greater than 96 Consecutive Hours (ICD-10-PCS; principal; 2020-12-29)
PROC: 4A023N7 Measurement of Cardiac Sampling and Pressure, Left Heart, Percutaneous Approach (ICD-10-PCS; 2021-01-01)
PROC: B2111ZZ Fluoroscopy of Multiple Coronary Arteries using Low Osmolar Contrast (ICD-10-PCS; 2021-01-01)
PROC: B2151ZZ Fluoroscopy of Left Heart using Low Osmolar Contrast (ICD-10-PCS; 2021-01-01)
DX: A41.89 Other specified sepsis (principal); U07.1 COVID-19; J96.01 Acute respiratory failure with hypoxia; J96.02 Acute respiratory failure with hypercapnia; I46.9 Cardiac arrest, cause unspecified; R57.8 Other shock; K72.00 Acute and subacute hepatic failure without coma; I49.01 Ventricular fibrillation; I47.2 Ventricular tachycardia; E87.2 Acidosis; I42.9 Cardiomyopathy, unspecified; G93.1 Anoxic brain damage, not elsewhere classified; Z73.0 Burn-out; R00.1 Bradycardia, unspecified; I95.9 Hypotension, unspecified; E87.8 Other disorders of electrolyte and fluid balance, not elsewhere classified; E83.39 Other disorders of phosphorus metabolism
CPT/HCPCS: 36415; 36556; 51702; 70450; 71045; 71275; 80048; 80053; 80076; 80306; 81000; 82040; 82150; 82330; 82550; 82553; 82805; 82962; 83605; 83690; 83735; 83874; 83880; 84100; 84132; 84145; 84478; 84484; 85007; 85025; 85027; 85379; 85384; 85610; 85730; 86141; 86850; 86900; 86901; 87040; 87070; 87077; 87081; 87088; 87186; 87205; 87804; 93005; 93306; 93458; 93970; 94002; 94003; 94640; 94799; 96365; 96367; 96368; 96375; 99291

== ENCOUNTER 2021-05-28 09:23 | Emergency (ER) | payer BC ==
[~2021-05-28 09:23] MED LIST: ASPI-999 PO; AZIT250T12 PO; DEXA4TAB PO; IBUP-2473 PO; RT-ALBUINH INH
--- OUTSIDE RECORDS SUMMARY | 2021-05-28 09:29 | XMS REPORT | Encounter Summary ---
Author Author [facility] Organization [facility] Address Unknown Phone Unavailable Care Team Providers Care Audiovisual Tech Name Role Phone Stacey James MD PCP Alyse Leal MD Unavailable Reason for Visit * Reason Onset Date Comments Remote ICD/PM Check 05/26/2021 Encounter Details Care Team Description Date Type Department Blaise Iniguez Remote ICD/PM Check 05/26/2021 Telephone Cardiology: [facility], [address] [place] [address]. [address], [address] [place] [address] Social History Date Tobacco Use Types Packs/Day Years Used Quit: 01/14/2010 Former Smoker Cigarettes 0.25 6 Smokeless Tobacco: Former Chew Quit: 2020 User Comments: x3 pouches QD x10-15 yrs Comments Alcohol Use Standard Drinks/Week Never 0 (1 standard drink = 0.6 o z pure alcohol) Alcohol Habits Answer Date Recorded How often do you have a drink containing alcohol? Never 01/08/2021 How many drinks containing alcohol do you have on No t asked a typical day when you are drinking? How often do you have six or more drinks on one Not asked occasion? Sex Assigned at Date Recorded Male 01/13/2021 11:17 AM CDT documented as of this encounter Functional Status Date of Assessment Functional Status Response 01/23/2021 Does the patient have a hearing impairment: No 01/23/2021 Does the patient have a visual impairment: No 01/23/2021 Does the patient have impaired ambulation: No 01/23/2021 Does the patient have an activity of daily living No (ADL) impairment: 01/23/2021 Does the patient have an instrumental activity of No daily living (IADL) impairment: Date of Assessment Cognitive Status Response 01/23/2021 Does the patient have a cognitive impairment: No documented as of this encounter Miscellaneous Notes * Telephone Encounter - HiraBlaise garcia - 05/26/2021 9:26 AM CDT Patient's called back and asked that we call patient's cell phone ). He will call [facility] soon to troubleshoot. I flagged EP remote pool to roni infante on this soon. documented in this encounter Plan of Treatment Not on filedocumented as of this encounter Goals Goal Patient Associated Recent Progress Patient-Stat Aut hor Goal Type Problems ed? Recover from illness Hospital Yes Roxanna Caceres, RN Note: "To get out of here" get my [facility] back Hospital Yes Dereck Martinez, RN documented as of this encounter Visit Diagnoses Not on filedocumented in this encounter Additional Health Concerns Assessment Noted Time A fall risk assessment has been completed for the pat ient 02/20/2021 11:15 AM CDT PHQ-2 Depression Total Score: 0 02/12/2021 11:06 AM CDT documented as of this encounter
--- OUTSIDE RECORDS SUMMARY | 2021-05-28 09:29 | XMS REPORT | Encounter Summary ---
Author Author [facility] Organization [facility] Address Unknown Phone Unavailable Care Team Providers Care Metal Crafts Teacher Name Role Phone Stacey James MD PCP Alyse Leal MD Unavailable Reason for Visit * Reason Onset Date Comments Remote ICD/PM Check 05/26/2021 Encounter Details Care Team Description Date Type Department Blaise Iniguez Remote ICD/PM Check 05/26/2021 Telephone Cardiology: [facility], [address] [place] [address]. [address], [address] [place] [address] Social History Date Tobacco Use [...] encounter Miscellaneous Notes * Telephone Encounter - Blaise Iniguez - 05/26/2021 8:41 AM CDT Monitor not connected. I called and LM with Mary (Spouse) to call [employer] to yaima kendrick. I flagged remote pool to check on this in a week. * Telephone Encounter - Blaise Iniguez - 05/26/2021 8:41 AM CDT ----- Message from Leeann Wilkins RN sent at 05/26/2021 8:01 AM CDT ----- Regarding: FW: Non-Urgent Medical Question Contact: ----- Message ----- From: Nell Em RN Sent: 05/26/2021 7:01 AM CDT To: Cv Nurse Ep Team A Subject: FW: Non-Urgent Medical Question ----- Message ----- From: Cory Dukes Sent: 05/25/2021 9:44 AM CDT To: Cvm Nurse Triage Ku Subject: Non-Urgent Medical Question Al Dr. Liu, I received an alert that my [employer] transmitter wasn't transmitting. I followed the instructions and sent a manual transmission. I'm not sure if it worked or n ot but the letter said to send a MyChart message once I sent the manual transmis jeremy. I'm sorry to bother you with this. The letter didn't say who to send the m essage to. Thank you, Cory Dukes documented in this encounter Plan of Treatment Not on filedocumented as of this encounter Goals Goal Patient Associated Recent Progress Patient-Stat Aut hor Goal Type Problems ed? Recover from illness Hospital Yes Roxanna Caceres, RN Note: "To get out of here" get my [facility] back Hospital Yes Dereck Martinez RN documented as of this encounter Visit Diagnoses Not on filedocumented in this encounter Additional Health Concerns Assessment Noted Time A fall risk assessment has been completed for the pat ient 02/20/2021 11:15 AM CDT PHQ-2 Depression Total Score: 0 02/12/2021 11:06 AM CDT documented as of this encounter
--- OUTSIDE RECORDS SUMMARY | 2021-05-28 09:29 | XMS REPORT | Encounter Summary ---
Author Author [facility] Organization [facility] Address Unknown Phone Unavailable Care Team Providers Care Consumer Recruiter Name Role Phone Stacey James MD PCP Alyse Leal MD Unavailable Reason for Visit * Reason Onset Date Comments Remote Monitoring 04/23/2021 Disconnected Remote Transmitter Questions Encounter Details Care Team Description Date Type Department Emilio Riddle RN Remote Monitoring Questions (Disconnecte d Remote Transmitter) 04/23/2021 Telephone Cardiology: [facility] [address], [address] [place] [address] Social History Date Tobacco Use Types Packs/Day [...] encounter Miscellaneous Notes * Telephone Encounter - Emilio Riddle RN - 05/19/2021 2:21 PM CDT Communication has not been reestablished as of today. No response from previous message left. Mychart message has not been read as of today. Patient missed rj eduled transmission from today due to disconnected transmitter. Letter was berta d. DB. * Telephone Encounter - Emilio Riddle RN - 04/23/2021 9:02 AM CDT Received notification that [employer] has not been connected si [employer] 04/22/21. Patient was instructed to look at his/her transmitter to make sure that it is plugged into power and send a manual transmission to reconnect the tr ansmitter. If he/she has any questions about how to send a transmission or if th e transmitter does not appear to be working properly, they need to contact the [employer] directly. Patient was provided with that contact number. Requested the patient send us a [employer] message or contact our device nurses at [phone] to let us know after they have sent their transmission. Message left on pref erred phone number, Mary Dukes. MyChart message was sent. DB. documented in this encounter Plan of Treatment Not on filedocumented as of this encounter Goals Goal Patient Associated Recent Progress Patient-Stat Aut hor Goal Type Problems ed? Recover from illness Hospital Yes Roxanna Caceres, RN Note: "To get out of here" get my stamina back Hospital Yes Dereck Martinez RN documented as of this encounter Visit Diagnoses Not on filedocumented in this encounter Additional Health Concerns Assessment Noted Time A fall risk assessment has been completed for the pat ient 02/20/2021 11:15 AM CDT PHQ-2 Depression Total Score: 0 02/12/2021 11:06 AM CDT documented as of this encounter
--- OUTSIDE RECORDS SUMMARY | 2021-05-28 09:29 | XMS REPORT | Clinical Summary ---
Author Author [facility] Organization [facility] Address Unknown Phone Unavailable Care Team Providers Care Cut Out And Marking Machine Operator Name Role Phone Stacey James MD PCP Alyse Leal MD Unavailable Source Comments Some departments are not documenting in the electronic medical record. If you d o not see the information that you expected, contact Release of Information in [facility] Information Management department at [phone] for further assistan ce in locating additional records.[facility] Allergies Comments Active Allergy Reactions Severity Noted Date Patient states the" physicians think the z-pack triggered the cardicac arrest" Azithromycin UNKNOWN Low 01/23/2021 Medications End Date Status Medication Sig Dispensed Refills Start Date Active lidocaine (LIDODERM) 5 % Apply one 30 patch 0 0 topical patch patch 1 topically to affected area daily. Apply patch for 12 hours, then remove for 12 hours before repeating. Active diclofenac (VOLTAREN) 1 % Apply two g 300 g 0 topical gel topically to 1 affected area four times daily. Active senna/docusate Take one 60 tablet 0 (SENOKOT-S) 8.6/50 mg tablet by 1 tablet mouth twice daily as needed. Active methocarbamoL (ROBAXIN) Take two 120 tablet 1 500 mg tablet tablets by 1 mouth three times daily. Active oxyCODONE (ROXICODONE) 10 Take 1.5 180 tablet 0 mg tablet tablets by 1 mouth every 3 hours as needed for Pain Active aspirin EC 81 mg tablet Take one 90 tablet 0 tablet by 1 mouth daily. Take with food. Active nadoloL (CORGARD) 40 mg Take one 90 tablet 3 tablet tablet by 1 mouth daily. Active Problems Problem Noted Date Debility 01/13/2021 Overview: Formatting of this note might be differ ent from the original. a. 01.13.2021 - DC'd from [facility] --> Admit to [facility] Rehab --> DC'd 01.18.2021 ICD (implantable cardioverter-defibrillator) in place 01/09/2021 Overview: Formatting of this note might be differ ent from the original. a. 01.10.2021 - Dual Chamber placed via Deysi Liu MD @ [facility] b. Decreased functional mobility and endurance 01/09/20 Overview: Formatting of this note might be differ ent from the original. a. 01.13.2021 - DC'd from [facility] --> Admit to [facility] Rehab --> DC'd 01.18.2021 Myocarditis due to COVID-19 virus 01/02/2021 Overview: Formatting of this note might be differ ent from the original. a. 4 - Suspected due to CoVID -- > 12.27.2020 - CoVid POS --> started on Azithromycin (Zithromax) & Dexametha sone for CoVid pneumonia --> 12.29.2020 - Children having Easter Egg h unt @ home--> tired/not feeling well --> went inside to lay down --> ch ecked --> found unresponsive & blue in color --> started CPR --> EMS continued --> detected pulse --> externally shocked --> sedated - -> intubated --> taken to [facility] [place] -- > Admit --> on way to ICU --> CODED --> Severe Bradycardia --> ROSC (return of spontaneous circulation) prior to any compressions or meds given --> C T head / chest --> no PE or CVA --> . & 01.01.2021 - episodes of Torsa luis w/ ROSC after short periods of ACLS in setting of bradycardia & massiv e QT prolongation in 700 ms range --> Rx Amiodarone & Norepinephrine --> Troponin NEG Anemia 01/02/2021 Overview: Formatting of this note might be differ ent from the original. a. . - Transferred to [facility] from [facility] [place]--> upon arriva l Hgb 10.5 Shock liver 01/02/2021 Overview: Formatting of this note might be differ ent from the original. a. . - transferred to [facility] from [facility] [place] --> AST 125 / ALT 178 Elevated LFTs 01/02/2021 Overview: Formatting of this note might be differ ent from the original. a. 01.02.2021 - transferred to [facility] from [facility] [place] --> AST 125 / ALT 178 Adenovirus positive by PCR 01/02/2021 Overview: Formatting of this note might be differ ent from the original. a. 01.02.2021 - POS LV dysfunction 12/31/2020 Overview: Formatting of this note might be differ ent from the original. a. 12.31.2020 - echo - EF 30-35% / LVIDd 5.3 cm / PAP 50-[address] [facility] [place] b. 01.01.2021 - Cardiac Cath / LVG EF 30% via Martin Barrera MD @ [facility] [place] c. 01.03.2021 - echo - EF 55% / LVIDd 5.3 6 cm / PAP Nl @ [facility] d. Acute respiratory failure with hypoxia 12/29/2020 Overview: Formatting of this note might be differ ent from the original. a. 12.29.2020 - Children having Easter Eg brigido castaneda @ home--> tired/not feeling well --> went inside to lay down --> wi fe checked --> found unresponsive & blue in color --> started CPR -- > EMS continued --> detected pulse -->externally shocked --> sedated --> intubated --> taken to [facility] [place] --> Ad shawn --> on way to ICU --> CODED --> Severe Bradycardia --> ROSC (return of spontaneous circulation) prior to any compressions or meds given --> CT h ead / chest --> no PE or CVA --> 4.6 & . - episodes of Torsa luis w/ ROSC after short periods of ACLS in setting of bradycardia & massiv e QT prolongation in 700 ms range --> Rx Amiodarone & Norepinephrine --> Troponin NEG b. 01.01.2021 - Cardiac Cath - NEG for CA D / LVG EF 30% via Martin Barrera MD @ [facility] [place] c. 01.02.2021 - Transferred to [facility] --> Dima w/ prolonged QTC --> Temp pacer placed via Oracio Mora MD --> . - Extubated --> 2L/O2/NC --> 4.- Epidural to reduce chest wall pain for pulm hygiene following extubation --> . - D ual chamber ICD placed via Deysi Liu MD --> . - transferre d to floor --> . - DC'd to [facility] Rehab Cardiac arrest with ventricular fibrillation 021 Overview: Formatting of this note might be differ ent from the original. a. 12.29.2020 - Children having Easter Eg brigido castaneda @ home--> tired/not feeling well --> went inside to lay down --> wi fe checked --> found unresponsive & blue in color --> started CPR -- > EMS continued --> detected pulse --> intubated --> taken to [facility] [place] --> Admit --> on way to ICU --> CODED - -> Severe Bradycardia --> ROSC (return of spontaneous circulation) danny or to any compressions or meds given --> CT head / chest --> no PE or CVA -- > x2 more episodes of Torsades w/ ROSC after short periods of ACLS b. 01.01.2021 - Cardiac Cath - NEG for CA D --> Normal arising LM & RCA from aorta. Short LM. Lrg Circ w/ co-domin ate circulation. RCA w/ codominate Circ. Smaller caliber LAD particularly after 1st septal clinical data assistant. LVEDP 14 / LVG EF 30% via Martin Barrera MD @ [facility] [place] c. 01.02.2021 - Transferred (life-flighte d) to [facility] --> Dima w/ prolonged QTC --> on Ketamine gtt --> u jackie arrival switched to Propofol --> Temp pacer placed via Oracio Mora MD --> 01.04.2021 - Extubated --> 01.05.2021 - GDMT started except BB due to pending ICD placement --> 01.09.2021 - Dual Chamber ICD placed via Deysi Liu MD --> 01.09.2021 - transferred to floor --> 01.13.2021 - DC 'd to [facility] Rehab d. QT prolongation 12/29/2020 Overview: Formatting of this note might be differ ent from the original. a. 12.29.2020 - Children having Easter Eg brigido mooret @ home--> tired/not feeling well --> went inside to lay down --> wi fe checked --> found unresponsive & blue in color --> started CPR -- > EMS continued --> detected pulse --> externally shocked --> sedated --> intubated --> taken to [facility] [place] -- > Admit --> on way to ICU --> CODED --> Severe Bradycardia --> ROSC (return of spontaneous circulation) prior to any compressions or meds given --> C T head / chest --> no PE or CVA --> 12.31.2020 & 01.01.2021 - episodes of Torsa luis w/ ROSC after short periods of ACLS in setting of bradycardia & massiv e QT prolongation in 700 ms range --> Rx Amiodarone & Norepinephrine --> Troponin NEG b. 01.01.2021 - Cardiac Cath - NEG for CA D / LVG EF 30% via Martin Barrera MD @ [facility] [place] c. 4.8.2020 - Transferred to [facility] --> Dima w/ prolonged QTC --> Temp pacer placed via Oracio Mora MD --> - Dual chamber ICD placed via Deysi Liu MD Bradycardia 12/29/2020 Overview: Formatting of this note might be differ ent from the original. a. 4..2020 - Children having Easter Eg g castaneda @ home--> tired/not feeling well --> went inside to lay down --> wi fe checked --> found unresponsive & blue in color --> started CPR -- > EMS continued --> detected pulse --> externally shocked --> sedated --> intubated --> taken to [facility] [place] -- > Admit --> on way to ICU --> CODED --> Severe Bradycardia --> ROSC (return of spontaneous circulation) prior to any compressions or meds given --> C T head / chest --> no PE or CVA --> 4.6 & . - episodes of Torsa luis w/ ROSC after short periods of ACLS in setting of bradycardia & massiv e QT prolongation in 700 ms range --> Rx Amiodarone & Norepinephrine --> Troponin NEG b. 01.01.2021 - Cardiac Cath - NEG for CA D / LVG EF 30% via Martin Barrera MD @ [facility] [place] c. 4.8.2020 - Transferred to [facility] --> Dima w/ prolonged QTC --> Temp pacer placed via Oracio Mora MD --> - Dual chamber ICD placed via Deysi Liu MD Torsades de pointes 12/29/2020 Overview: Formatting of this note might be differ ent from the original. a. 4.4.2020 - Children having Easter Eg g castaneda @ home--> tired/not feeling well --> went inside to lay down --> wi fe checked --> found unresponsive & blue in color --> started CPR -- > EMS continued --> detected pulse --> externally shocked --> sedated --> intubated --> taken to [facility] [place] -- > Admit --> on way to ICU --> CODED --> Severe Bradycardia --> ROSC (return of spontaneous circulation) prior to any compressions or meds given --> C T head / chest --> no PE or CVA --> . & 01.01.2021 - episodes of Torsa luis w/ ROSC after short periods of ACLS in setting of bradycardia & massiv e QT prolongation in 700 ms range --> Rx Amiodarone & Norepinephrine --> Troponin NEG b. 01.01.2021 - Cardiac Cath - NEG for CA D / LVG EF 30% via Martin Barrera MD @ [facility] [place]. 01.02.2021 - Transferred to [facility] --> Dima w/ prolonged QTC --> Temp pacer placed via Oracio Mora MD --> - Dual chamber ICD placed via Deysi Liu MD NICM (nonischemic cardiomyopathy) 12/29/2020 Overview: Formatting of this note might be differ ent from the original. a. 4 - initial dx b. 01.11.2021 - Genetic testing preforme d @ [facility] Closed fracture of multiple ribs of both sides 12/29 Overview: Formatting of this note might be differ ent from the original. a. 4. - due to CPR x1 at home --> ., 12.31.2020 & 01.01.[address] [facility] [address] [place] --> 01.07.2021- Epidural to reduce chest wall pain for pulm hygiene following extubation --> noted mid thoracic vertebral compression fx @ [facility] Anxiety 12/29/2020 Overview: Formatting of this note might be differ ent from the original. a. Ativan --> started while @ [facility] s COVID-19 12/27/2020 Overview: Formatting of this note might be differ ent from the original. a. 4.2.2020 - POS --> started on Azithr omycin (Zithromax) & Dexamethasone for CoVid pneumonia --> 4. - Chi jody having Easter Egg castaneda @ home--> tired/not feeling well --> went inside to lay down --> checked --> found unresponsive & blue in color --> started CPR --> EMS continued --> detected pulse --> stick welder ally shocked --> sedated --> intubated --> taken to [facility] [place] --> Admit --> on way to ICU --> CODED --> S evere Bradycardia --> ROSC (return of spontaneous circulation) prior to an y compressions or meds given --> CT head / chest --> no PE or CVA --> 4.6.2 021 & 01.01.2021 - episodes of Torsades w/ ROSC after short periods of ACLS in setting of bradycardia & massive QT prolongation in 700 ms range --> Rx Amiodarone & Norepinephrine --> Troponin NEG b. 01.01.2021 - Cardiac Cath - NEG for CA D / LVG EF 30% via Martin Barrera MD @ [facility] [place] c. . - [facility] Dima w/ prolonged QTC --> Temp pacer placed via Oracio Mora MD --> - Dual chamber ICD placed via Deysi Liu MD --> 01.13.2021 DC' d to [facility] Rehab d. Resolved Problems Problem Noted Date Resolved Date UTI (urinary tract infection) 01/03/2021 01/14/20 21 Acute cystitis 01/01/2021 01/21/2021 Overview: Formatting of this note might be differ ent from the original. a. 4. - [facility] [place] --> upon arriv al on [place] for unkwn infection --> UA - packed WBC & few bacteria --> Zosy n started Encounters Care Team Description Date Type Specialty Blaise Iniguez Remote ICD/PM Check 05/26/2021 Telephone Cardiology Blaise Iniguez Remote ICD/PM Check 05/26/2021 Telephone Cardiology Emilio Riddle RN Remote Monitoring Questions (Disconnecte d Remote Transmitter) 04/23/2021 Telephone Cardiology Deysi Liu MD 03/24/2021 Hospital Cardiology Encounter Deysi Liu MD 03/17/2021 Hospital Cardiology Encounter Deysi Liu MD 03/17/2021 Hospital Cardiology Encounter 03/17/2021 Travel Leigha Good RN 03/17/2021 Telephone Cardiology Kelle Watson RN HRM - Abnormal Device Check (Potential H eart Failure) (Heart Logic Alert) 03/12/2021 Telephone Cardiology Deysi Liu MD 03/11/2021 Hospital Cardiology Encounter Deysi Liu MD 03/03/2021 Hospital Cardiology Encounter Rodrick Middleton DO 02/25/2021 Hospital Cardiology Encounter from Last 3 Months Surgical History Surgery Date Site/Laterality Comments CARDIAC CATHERIZATION 01/01/2021 Left via Rj Barrera MD @ [facility] [place] ICD PLACEMENT 01/09/2021 Dual chamber via prashant Liu MD @ [facility], [facility] PACEMAKER INSERTION 01/02/2021 Temporary placed @ [facility], [facility] Medical History Medical History Date Comments Myocardial infarction (HCC) 12/29/2020 Covid-19 12/27/2020 LV dysfunction 12/31/2020 ef 30-35% Sepsis (HCC) 12/29/[address] [facility] [place] Respiratory arrest (HCC) 12/29/[address] [facility] [place] Sudden 12/29/2020 @ home Ventricular tachyarrhythmia (HCC) 12/29/2020 @ [facility] [address] [place] Bradycardia 12/29/2020 Torsades de pointes (HCC) 12/29/2020 UTI (urinary tract infection) 12/29/2020 Anemia 12/29/2020 Cardiac arrest with ventricular 12/29/2020 @ home fibrillation (HCC) Closed rib fracture 12/29/2020 due to CPR QT prolongation 12/29/2020 Gait abnormality 01/08/2021 Anxiety 12/29/2020 Family History Medical History Relation Name Comments Heart Failure Mother Relation Name Status Comments Father Alive Mother Alive Social History Date Tobacco Use Types Packs/Day [...] Date Recorded Male 01/13/2021 11:17 AM CDT Last Filed Vital Signs Reading Time Taken Comments Vital Sign 107/79 02/20/2021 11:14 AM CDT Blood Pressure 71 02/20/2021 11:14 AM CDT Pulse 36.9 C (98.5 F) 02/20/2021 11:14 AM CDT Temperature 16 02/20/2021 11:14 AM CDT Respiratory Rate 100% 02/20/2021 11:14 AM CDT Oxygen Saturation - - Inhaled Oxygen Concentration 86.2 kg (190 lb) 02/12/2021 11:09 AM CDT Weight 193 cm (6' 4") 02/20/2021 11:14 AM CDT Height 23.14 02/12/2021 11:09 AM CDT Body Mass Index Plan of Treatment Health Maintenance Due Date Last Done Comments DTAP/TDAP VACCINES (1 - 2000 Tdap) PHYSICAL (COMPREHENSIVE) 2000 EXAM INFLUENZA VACCINE 06/27/2021 HEPATITIS C SCREENING Completed 01/02/2021 HIV SCREENING Completed 01/02/2021 Goals Goal Patient Associated Recent Progress Patient-Stat Aut hor Goal Type Problems ed? Recover from illness Hospital Yes Roxanna Caceres, RN Note: "To get out of here" get my [facility] Yes Dereck Martinez, RN Implants Device Identifier Shelf Expiration Date Model / Serial / L ot Implanted Type Area Manufactur er INGEVITY 7841-52 / [id number] / Icd Lead-01/09/2021 ICD Lead Implanted: Qty: 1 on 01/09/2021 by Deysi Liu MD [place] 4 FRONT 067 3-64 / [id number] / Icd Lead-01/09/2021 ICD Lead Implanted: Qty: 1 on 01/09/2021 by [facility] Jaime [id number] / [id number] / Icd-01/09/2021 ICD Implanted: Qty: 1 on 01/09/2021 by Deysi Liu MD Procedures Comments Procedure Name Priority Date/Time Associated Diag nosis DEVICE EVALUATION - Routine 05/17/2021 Cardiac ar rest with REMOTE ICD CHARGES 10:46 AM CDT ventricular fibril lation (HCC) DEVICE EVALUATION - ICD Routine 03/17/2021 ICD (i mplantable 3:20 PM CDT cardioverter-defibrillato r) in place DEVICE EVALUATION - Routine 03/17/2021 Cardiac ar rest with REMOTE ICD 11:52 AM CDT ventricular fibrill ation (HCC) DEVICE EVALUATION - Routine 03/11/2021 Cardiac ar rest with REMOTE ICD 12:52 PM CDT ventricular fibrill ation (HCC) DEVICE EVALUATION - Routine 03/03/2021 Cardiac ar rest with REMOTE ICD 9:42 AM CDT ventricular fibrill ation (HCC) DEVICE EVALUATION - Routine 02/25/2021 Cardiac ar rest (HCC) REMOTE ICD 8:51 AM CDT COVID-19 from Last 3 Months Results * DEVICE EVALUATION - REMOTE ICD (05/17/2021 10:46 AM CDT) Device Latitude Consult [facility] [place] Transmitter Compatible Remote Cellular Adaptor [facility] Connectivity Atrial Lead [place] [employer] [facility] Associate Professor Of Theology Atrial Lead 01/09/2021 [facility] Implant Date Atrial Lead active fixation [facility] Fixation Atrial Lead 10 [facility] Diaph. Stimulation Atrial Lead Bipolar [facility] Polarity Atrial Lead Pin IS1 [facility] Connector RV Lead [place] [employer] [facility] Associate Professor Of Theology RV Lead Implant 01/09/2021 [facility] Date RV Lead active fixation [facility] Fixation RV Lead Diaph. 10 [facility] Stimulation RV Lead Pin DF4 [facility] Connector PPM RV Lead Coil Single [facility] Atrial Lead Ingevity 7841-52 [facility] Model # Atrial Lead 1,067,831 [facility] Serial # Atrial Lead right atrial appendage [facility] Location RV Lead Model # [place] 4 Front 8473-64 [facility] RV Lead Serial 139,864 [facility] # RV Lead RV apex M[facility] Location Device Type ICD [facility] Generator Model D433 [facility] # Generator [id number] [facility] Serial # Generator [place] [employer] [facility] Associate Professor Of Theology Generator 2021-01-09 [facility] Implnat Date EP DEVICE Sees Dr. Nieto with HF02/04/21: [facility] PATIENT NOTES two brief FFOS episodes on 02/04/21 remote. Also RV pacing alert. We can make adjustments to device if needed at 02/12/21 OV. WadeLong QT, torsades. Pacemaker no [facility] Dependant On no [facility] Anticoagulation EP SYSTEM MRI yes [facility] CONDITIONAL Specimen Narrative Performed At [facility] Title: Alert: Yellow A Yellow Alert was reported by the carole ce: # [facility] HEART LOGIC TEAM NOTIFIED * HeartLogic Heart Failure Index remain s above the alert recovery threshold of 6. Title: HeartLogic Index: Elevated * HeartLogic HF Index crossed alert thr eshold with index of 37 * This will alert weekly until the inde x is below recovery threshold - Currently the contributing factors ar e: - S3: _X - S3/S1 Ratio: _X - Thoracic Impedance: ___ - Respiratory Rate: ___ - Night Heart Rate: ___ * Will continue to scan trends and carl tor Title: Normal Remote: No Events * Normal Device Function * Alerts or events: Heart Logic alert/ no events * Battery: Battery is at 100%, 11.00 yr s * Sensing, impedance and thresholds rev iewed * Programmed parameters reviewed * Presenting rhythm VS 60 bpm * Heart Rate Histograms reviewed * No significant changes noted Performing Organization Address City/State/ZIP Code [place] Number [facility] * DEVICE EVALUATION - ICD (03/17/2021 3:20 PM CDT) Device Latitude Consult [facility] [place] Transmitter Compatible Remote Cellular Adaptor [facility] Connectivity Atrial Lead [place] [employer] [facility] Associate Professor Of Theology Atrial Lead 01/09/2021 [facility] Implant Date Atrial Lead active fixation [facility] Fixation Atrial Lead 10 [facility] Diaph. Stimulation Atrial Lead Bipolar [facility] Polarity Atrial Lead Pin IS1 [facility] Connector RV Lead [employer] [place] [employer] [facility] Associate Professor Of Theology RV Lead Implant 01/09/2021 [facility] Date RV Lead active fixation [facility] Fixation RV Lead Diaph. 10 [facility] Stimulation RV Lead Pin DF4 [facility] Connector PPM RV Lead Coil Single [facility] Atrial Lead Ingevity 7841-52 [facility] Model # Atrial Lead 1,067,831 [facility] Serial # Atrial Lead right atrial appendage [facility] Location RV Lead Model # [place] 4 Front 0673-64 M[facility] RV Lead Serial 139,864 [facility] # RV Lead RV apex MUR[facility] Location Device Type ICD [facility] Generator [employer] [place] [employer] MUR[facility] Associate Professor Of Theology Generator Model X000-938-5 [facility] # Generator [id number] [facility] Serial # Generator 2021-01-09 [facility] Implnat Date EP DEVICE Sees Dr. Nieto with HF02/04/21: [facility] PATIENT NOTES two brief FFOS episodes on 02/04/21 remote. Also RV pacing alert. We can make adjustments to device if needed at 02/12/21 OV. WadeLong QT, torsades. Pacemaker no [facility] Dependant On no [facility] Anticoagulation EP SYSTEM MRI yes [facility] CONDITIONAL Specimen Narrative Performed At [facility] Title: Normal In-Office: No Events * Normal Device Function * Alerts or events: None since remote d one this morning 03/17/21 * Battery: 11 years * Sensing, impedance and thresholds rev iewed and tested * Presenting Rhythm: AP-ORE FEEDER 70 bpm * Underlying Rhythm: -VS 51-54 bpm * Heart Rate Histograms show good rate distribution * Pacing and Detection Parameters were evaluated Additional Notes: V Pacing 75% at the t cheri of interrogation. Recent remote completed. Note of a possible at rial lead dislodgment per documented remote. When patient prese nted thresholds were right around outputs. Lead testing done both atrial and ventricular leads were stable. Slight i ncrease in thresholds noted. Outputs were programmed accordingly to maintain an adequate safety margin. Discussed with TOWER SWITCH OPERATOR. Patient reporting s light diziness when standing and moving around. Discussed with patient to call the nursing line if this does n ot improve. Device function is stable at this time. Title: HeartLogic Index: Elevated * HeartLogic HF Index crossed alert thr eshold with index of 42 * This will alert weekly until the inde x is below recovery threshold - Currently the contributing factors ar e: - S3: _X__ - S3/S1 Ratio: __X_ - Thoracic Impedance: ___ - Respiratory Rate: ___ - Night Heart Rate: ___ * Will continue to scan trends and carl tor Title: Device Reprogrammed Device reprogrammed, changes are listed below: * Per TOWER SWITCH OPERATOR rate changed from 70 bpm to 6 0 bpm * AV search + turned on * Atrial amplitude changed from 1.5V to 2.3V due to a slight increase in threshold * Ventricular amplitude changed from 1. 5V to 2.3V to maintain an adequate safety margin Performing Organization Address City/State/ZIP Code [place] Number [facility] * DEVICE EVALUATION - REMOTE ICD (03/17/2021 11:52 AM CDT) [facility] Signature Device Latitude Consult [facility] [place] Transmitter Compatible Remote Cellular Adaptor M[facility] Connectivity Atrial Lead [place] [employer] MURScreenmailer Associate Professor Of Theology Atrial Lead 01/09/2021 [facility] Implant Date Atrial Lead active fixation M[facility] Fixation Atrial Lead 10 [facility] Diaph. Stimulation Atrial Lead Bipolar [facility] Polarity Atrial Lead Pin IS1 [facility] Connector RV Lead [place] [employer] MURScreenmailer Associate Professor Of Theology RV Lead Implant 01/09/2021 [facility] Date RV Lead active fixation [facility] Fixation RV Lead Diaph. 10 [facility] Stimulation RV Lead Pin DF4 [facility] Connector PPM RV Lead Coil Single [facility] Atrial Lead Ingevity 7841-52 [facility] Model # Atrial Lead 1,067,831 [facility] Serial # Atrial Lead right atrial appendage M[facility] Location RV Lead Model # [place] 4 Front 1773-64 MUR[facility] RV Lead Serial 139,864 [facility] # RV Lead RV apex [facility] Location Device Type ICD MURJ Generator Model D433 [facility] # Generator [id number] [facility] Serial # Generator [employer] MURJ Associate Professor Of Theology Generator 2021-01-09 MURJ Implnat Date EP DEVICE Sees Dr. Nieto with [facility]04[facility] PAT[facility] NOTES two brief FFOS episodes on 02/04/21 remote. Also RV pacing alert. We can make adjustments to device if needed at 02/12/21 OV. WadeLong QT, torsades. Pacemaker no MURJ Dependant On no MURJ Anticoagulation EP SYSTEM MRI yes MURJ CONDITIONAL Specimen Narrative Performed At MURJ Title: Alert: Yellow A Yellow Alert was reported by the carole ce: * Right ventricular automatic threshold detected as > programmed amplitude or suspended. Title: Abnormal Remote * Abnormal Device Function * Alerts or Events: HL, RV threshold * Battery: Battery is at 100% * Sensing, impedance and thresholds rev iewed * Programmed parameters reviewed * Presenting rhythm: AP-ORE FEEDER 70 bpm * Heart Rate Histograms reviewed Title: HeartLogic Index: Elevated * HeartLogic HF Index crossed alert thr eshold with index of 41 * This will alert weekly until the inde x is below recovery threshold - Currently the contributing factors ar e: - S3: __X_ - S3/S1 Ratio: __X_ - Thoracic Impedance: ___ - Respiratory Rate: ___ - Night Heart Rate: ___ * Will continue to scan trends and carl tor Title: Alert: Yellow A Yellow Alert was reported by the carole ce: * Atrial lead non capture, elevated RV lead threshold, possible lead dislodgement based on presenting and tr ends. Review data with [employer]. * HeartLogic Heart Failure Index remain s above the alert recovery threshold of 6. Title: HeartLogic Index: Elevated * HeartLogic HF Index crossed alert thr eshold with index of 41 * This will alert weekly until the inde x is below recovery threshold - Currently the contributing factors ar e: - S3: __X_ - S3/S1 Ratio: _X__ - Thoracic Impedance: ___ - Respiratory Rate: ___ - Night Heart Rate: ___ * Will continue to scan trends and carl tor Title: Atrial Loss of Capture # CVM Nurse EP team notified * Atrial lead demonstrated loss of capt ure * Measured value 1.1V@0.4ms * Programmed setting 1.5V@0.4ms The presenting EGM is suggestive of atr ial lead non capture. The atrial pace is followed by a ORE FEEDER, however, the PAC appears to be the true atrial sense followed by a true VS if we eron re to the presenting rhythm from 03/16/21. Patient should come in for a chest xray to assess lead placement. Lead trends are also rising overtime suggesting possible lead dislo dgement. Title: Abnormal Remote * Abnormal Device Function * Alerts or Events: HL, A lead loss of capture, RV threshold greater than programmed amplitude or suspended * Battery: Battery is at 100% * Sensing, impedance and thresholds rev iewed * Programmed parameters reviewed * Presenting rhythm: Atrial lead loss of capture present. Initial rhythm shows AP-ORE FEEDER with PAC. Upon assessment of this presenting rhythm, it does not appear a if the atrial lead is capt uring appropriately and the PAC is an actual true followed by an appropriate intrinsic VS 70 bpm sugg esting patient does how NSR, however, this EGM is suggestive of poss ible lead dislodgement. Reviewed data with [employer]. * Heart Rate Histograms reviewed Performing Organization Address City/State/ZIP Code [place] Number MURJ * DEVICE EVALUATION - REMOTE ICD (03/11/2021 12:52 PM CDT) Device Latitude Consult MURJ [place] Transmitter Compatible Remote Cellular Adaptor MURJ Connectivity Atrial Lead [employer] MURJ Associate Professor Of Theology Atrial Lead 01/09/2021 MURJ Implant Date Atrial Lead active fixation MURJ Fixation Atrial Lead 10 MURJ Diaph. Stimulation Atrial Lead Bipolar MURJ Polarity Atrial Lead Pin IS1 MURJ Connector RV Lead [employer] MURJ Associate Professor Of Theology RV Lead Implant 01/09/2021 MURJ Date RV Lead active fixation MURJ Fixation RV Lead Diaph. 10 MURJ Stimulation RV Lead Pin DF4 MURJ Connector PPM RV Lead Coil Single MURJ Atrial Lead Ingevity 7841-52 [facility] Model # Atrial Lead 1,067,831 MURJ Serial # Atrial Lead right atrial appendage MURJ Location RV Lead Model # [place] 4 Front 1473-64 MURJ RV Lead Serial 139,864 MURJ # RV Lead RV apex MURJ Location Device Type ICD MURJ Generator Model D433 MURJ # Generator [id number] MURJ Serial # Generator [employer] MURJ Associate Professor Of Theology Generator 2021-01-09 MURJ Implnat Date EP DEVICE Sees Dr. Nieto with HF02/04/21: [facility] PATIENT NOTES two brief FFOS episodes on 02/04/21 remote. Also RV pacing alert. We can make adjustments to device if needed at 02/12/21 OV. WadeLong QT, torsades. Pacemaker no MURJ Dependant On no MURJ Anticoagulation EP SYSTEM MRI yes MURJ CONDITIONAL Specimen Narrative Performed At MURJ Title: HeartLogic Index: Elevated * HeartLogic HF Index crossed alert thr eshold with index of 38 * This will alert weekly until the inde x is below recovery threshold - Currently the contributing factors ar e: - S3: 1.56mG - S3/S1 Ratio: 1.56mG/1.62mG * Will continue to scan trends and carl tor Title: Alert: Yellow ALERT YELLOW IB MESSAGE SENT TO [employer] POOL REG ARDING ALERT FOR HeartLogic Heart Failure Index remains above the alert r ecovery threshold of 6. Title: Unscheduled Remote * Reason: * Alerts or Events: 1 HeartLogic Alert * Battery: Battery is at 100% * Sensing, impedance and thresholds rev iewed * Programmed parameters reviewed * Presenting rhythm APVP 70bpm * Heart Rate Histograms reviewed * No significant changes noted Performing Organization Address City/State/ZIP Code [place] Number MURJ * DEVICE EVALUATION - REMOTE ICD (03/03/2021 9:42 AM CDT) Device Latitude Consult MURJ [place] [employer] Compatible Remote Cellular Adaptor MURJ Connectivity Atrial Lead [employer] [facility] Associate Professor Of Theology Atrial Lead 01/09/2021 MURJ Implant Date Atrial Lead active fixation MURJ Fixation Atrial Lead 10 MURJ Diaph. Stimulation Atrial Lead Bipolar MURJ Polarity Atrial Lead Pin IS1 [facility] Connector RV Lead [employer] MUR Associate Professor Of Theology RV Lead Implant 01/09/2021 MUR Date RV Lead active fixation MURJ Fixation RV Lead Diaph. 10 MURJ Stimulation RV Lead Pin DF4 MURJ Connector PPM RV Lead Coil Single MURJ Atrial Lead Ingevity 7841-52 [facility] Model # Atrial Lead 1,067,831 [facility] Serial # Atrial Lead right atrial appendage MURJ Location RV Lead Model # [place] 4 Front 0873-64 MURJ RV Lead Serial 139,864 MURJ # RV Lead RV apex MURJ Location Device Type ICD [facility] Generator Model D433 [facility] # Generator [id number] [facility] Serial # Generator [employer] MURJ Associate Professor Of Theology Generator 2021-01-09 MURJ Implnat Date EP DEVICE Sees Dr. Nieto with HF02/04/21[facility] NOTES two brief FFOS episodes on 02/04/21 remote. Also RV pacing alert. We can make adjustments to device if needed at 02/12/21 OV. WadeLong QT, torsades. Pacemaker no MURJ Dependant On no MURJ Anticoagulation EP SYSTEM MRI yes MURJ CONDITIONAL Specimen Narrative Performed At MURJ Title: HeartLogic Index: Elevated IB MESSAGE TO HF AND DR. NIETO TEAM, HE ART LOGIC INDEX REMAINS ELEVATED. * HeartLogic HF Index crossed alert thr eshold with index of 16 * This will alert weekly until the inde x is below recovery threshold - Currently the contributing factors ar e: # currently at 15 03/03/2021 - S3: 1.73 - S3/S1 Ratio: 1.73/1.79 - Thoracic Impedance: 42 - Respiratory Rate: 10.3 - Night Heart Rate: 70 * Will continue to scan trends and carl tor Performing Organization Address City/State/ZIP Code [place] Number MURJ * DEVICE EVALUATION - REMOTE ICD (02/25/2021 8:51 AM CDT) Device Latitude Consult MURJ [place] [employer] Compatible Remote Cellular Adaptor MURJ Connectivity Atrial Lead [employer] MURJ Associate Professor Of Theology Atrial Lead 01/09/2021 MURJ Implant Date Atrial Lead active fixation MURJ Fixation Atrial Lead 10 MURJ Diaph. Stimulation Atrial Lead Bipolar MURJ Polarity Atrial Lead Pin IS1 MURJ Connector RV Lead [employer] MURJ Associate Professor Of Theology RV Lead Implant 01/09/2021 MURJ Date RV Lead active fixation MURJ Fixation RV Lead Diaph. 10 MURJ Stimulation RV Lead Pin DF4 MURJ Connector PPM RV Lead Coil Single MURJ Atrial Lead Ingevity 7841-52 MURJ Model # Atrial Lead 1,067,831 MURJ Serial # Atrial Lead right atrial appendage MURJ Location RV Lead Model # [place] 4 Front 1473-64 MURJ RV Lead Serial 139,864 MURJ # RV Lead RV apex MURJ Location Device Type ICD MURJ Generator Model D433 MURJ # Generator [id number] MURJ Serial # Generator [employer] MURJ Associate Professor Of Theology Generator 2021-01-09 MURJ Implnat Date EP DEVICE 02/04/21: two brief FFOS MURJ PATIENT NOTES episodes on 02/04/21 remote. Also RV pacing alert. We can make adjustments to device if needed at 02/12/21 OV. WadeLong QT, torsades. Pacemaker no MURJ Dependant On no MURJ Anticoagulation EP SYSTEM MRI yes MURJ CONDITIONAL Specimen Narrative Performed At MURJ Title: Alert: Yellow ALERT YELLOW HEARTLOGIC NURSE POOL NOTIFIED OF ALERT FOR HeartLogic Heart Failure Index has crossed the alert threshold of 16. The alert recovery threshold is 6. Title: HeartLogic Index: Elevated * HeartLogic HF Index crossed alert thr eshold with index of 20 * This will alert weekly until the inde x is below recovery threshold - Currently the contributing factors ar e: - S3: 1.71mG - S3/S1 Ratio: 1.71mG/3.03mG * Will continue to scan trends and carl tor Title: Unscheduled Remote * Reason: * Alerts or Events: 1 HeartLogic Alert * Battery: Battery is at 100% * Sensing, impedance and thresholds rev iewed * Programmed parameters reviewed * Presenting rhythm APVP 70bpm * Heart Rate Histograms reviewed * No significant changes noted Performing Organization Address City/State/ZIP Code [place] Number MURJ from Last 3 Months Insurance Type Payer Benefit Subscriber ID Effective Phone Address Plan / Dates Group [facility] [id number] 2020-P [facility] resent BLUE Advance 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 needed 01/13/2021 5:20 PM Full Code 01/02/2021 4:31 PM Provider has discussed Code Status No, more discussi on w/Patient or Family? needed
--- NOTE | 2021-05-28 09:50 | ED Dyspnea ---
General Stated Complaint: SOB Source of Information: Patient, Family Exam Limitations: No Limitations History of Present Illness Date Seen by Provider: May 28, 2021 Time Seen by Provider: 09:35 Initial Comments Patient is a 41-year-old male who presents to the emergency department today with a chief complaint of feeling short of breath. Patient states he woke up with the symptoms this morning. Relates that he has had a little bit of a sore throat for the last couple of weeks, had some diarrhea and stomach upset 2 days ago. 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 Takes 1 blood pressure medicine and a baby aspirin daily. Currently their young son is on Covid quarantine from an exposure at school. He is 3 years old. Patient is Covid vaccinated now he received his second vaccination of Moderna on May 14. No recent fevers or chills. No cough. No nausea. No abdominal pain. Denies any lower extremity swelling. No history of congestive heart failure. States that it just feels uncomfortable to take a deep breath and he feels more short of breath when he is speaking. relates that he did have a DVT in his left arm and was placed on anticoagulants during his hospitalization but nothing post hospitalization. All other review of systems reviewed and negative except as stated. Timing/Duration: 1-3 Hours Severity: Mild Activities at Onset: None Associated Symptoms: Other (sore throat) Allergies and Home Medications Allergies Coded Allergies: No Known Drug Allergies (Unverified , 12/29/20) Home Medications Albuterol Sulfate 1 Puff Puff, 1-2 PUFF INH Q4H PRN for SHORTNESS OF BREATH, (Reported) Aspirin 81 Mg Tab.chew, 81 MG PO DAILY, (Reported) Azithromycin 250 Mg Tablet, 250 MG PO DAILY, (Reported) STARTING TAKING 12/28/2020 5 DAY SUPPLY Dexamethasone 4 Mg Tablet, 6 MG PO DAILY, (Reported) TAKES 1 (4MG) TABLET STARTING TAKING 12/28/2020 10 DAY SUPPLY Ibuprofen 200 Mg Tablet, 600 MG PO Q6H PRN for PAIN-MILD (1-4), (Reported) TAKES 3 (200MG) TABLETS Patient Home Medication List Home Medication List Reviewed: Yes Review of Systems Review of Systems Constitutional: see HPI EENTM: throat pain Respiratory: short of breath Cardiovascular: no symptoms reported Gastrointestinal: diarrhea Genitourinary: no symptoms reported Musculoskeletal: no symptoms reported Skin: no symptoms reported Psychiatric/Neurological: No Symptoms Reported All Other Systems Reviewed Negative Unless Noted: Yes Past Eckybtb-Ajciyl-Bycdxx Hx Family Medical History unknown Physical Exam Vital Signs Vital Signs - First Documented 05/28/21 09:33 Pulse 62 Resp 18 B/P (MAP) 151/108 (122) Pulse Ox 99 O2 Delivery Room Air Capillary Refill : Height, Weight, BMI Height: '" Weight: lbs. oz. kg; 26.64 BMI Method: General Appearance: No Apparent Distress, WD/WN HEENT: PERRL/EOMI, Normal ENT Inspection, Pharynx Normal Neck: Normal Inspection Respiratory: Chest Non Tender, No Accessory Muscle Use, No Respiratory Distress, Other (crackles bilateral bases) Cardiovascular: Regular Rate, Rhythm, No Murmur Gastrointestinal: Normal Bowel Sounds, Non Tender, Soft Extremity: Normal Inspection, Normal Range of Motion, No Calf Tenderness, No Pedal Edema Neurologic/Psychiatric: Alert, Oriented x3, No Motor/Sensory Deficits, Normal Mood/Affect Skin: Normal Color, Warm/Dry Procedures/Interventions Date of ETT Placement: Dec 29, 2020 Progress/Results/Core Measures Results/Orders Lab Results Laboratory Tests Test 05/28/21 09:40 05/28/21 11:20 Range/Units SARS-CoV-2 RNA (RT-PCR) Not Detected Not Detecte White Blood Count 17.7 H 4.3-11.0 10^3/uL Red Blood Count 4.30 4.30-5.52 10^6/uL Hemoglobin 11.7 L 13.3-17.7 g/dL Hematocrit 36 L 40-54 % Mean Corpuscular Volume 84 80-99 fL Mean Corpuscular Hemoglobin 27 25-34 pg Mean Corpuscular Hemoglobin Concent 32 32-36 g/dL Red Cell Distribution Width 15.4 H 10.0-14.5 % Platelet Count 349 130-400 10^3/uL Mean Platelet Volume 8.6 L 9.0-12.2 fL Immature Granulocyte % (Auto) 1 % Neutrophils (%) (Auto) 83 H 42-75 % Lymphocytes (%) (Auto) 9 L 12-44 % Monocytes (%) (Auto) 6 0-12 % Eosinophils (%) (Auto) 1 0-10 % Basophils (%) (Auto) 0 0-10 % Neutrophils # (Auto) 14.7 H 1.8-7.8 10^3/uL Lymphocytes # (Auto) 1.6 1.0-4.0 10^3/uL Monocytes # (Auto) 1.1 H 0.0-1.0 10^3/uL Eosinophils # (Auto) 0.1 0.0-0.3 10^3/uL Basophils # (Auto) 0.0 0.0-0.1 10^3/uL Immature Granulocyte # (Auto) 0.1 0.0-0.1 10^3/uL Neutrophils % (Manual) 77 % Lymphocytes % (Manual) 8 % Monocytes % (Manual) 11 % Eosinophils % (Manual) 1 % Blood Morphology Comment NORMAL Sodium Level 136 135-145 MMOL/L Potassium Level 4.5 3.6-5.0 MMOL/L Chloride Level 101 98-107 MMOL/L Carbon Dioxide Level 28 21-32 MMOL/L Anion Gap 7 5-14 MMOL/L Blood Urea Nitrogen 17 7-18 MG/DL Creatinine 0.87 0.60-1.30 MG/DL Estimat Glomerular Filtration Rate 98 BUN/Creatinine Ratio 20 Glucose Level 108 H 70-105 MG/DL Calcium Level 9.4 8.5-10.1 MG/DL B-Type Natriuretic Peptide 81.4 <100.0 PG/ML My Orders Orders - WALESKA GERBER MD Ed Iv/Invasive Line Start (05/28/21 09:44) Cbc With Automated Diff (05/28/21 09:44) Basic Metabolic Panel (05/28/21 09:44) Ekg Tracing (05/28/21 09:44) Chest 1 View, Ap/Pa Only (05/28/21 09:44) Covid 19 Inhouse Test (05/28/21 09:44) Isolation Central Supply Req (05/28/21 09:44) BNP (05/28/21 09:44) Manual Differential (05/28/21 11:20) Vital Signs/I&O 05/28/21 05/28/21 09:33 11:56 Pulse 62 61 Resp 18 18 B/P (MAP) 151/108 (122) 131/75 Pulse Ox 99 96 O2 Delivery Room Air Room Air Progress Progress Note : Time: 12:24 Progress Note Patient developed no further concerns while in the emergency department. States he feels about the same. Is not hypoxic, is not tachycardic. Has good blood pressure. Chest x-ray read by radiology shows no acute abnormalities. He does have quite a significant leukocytosis on CBC with a 17,000 white blood cell count. BMP is normal. BNP is also normal. Patient has had no chest pain, pressure, tightness. Just a subjective feeling of a little shortness of breath this morning. No swelling in his extremities. No pain in his calves. No clinical or objective findings to warrant further studies from the emergency department at this time. Patient is comfortable with the plan of care. I have counseled him that if he develops any further shortness of breath especially with chest pain fever productive cough that he come back to the emergency room for reevaluation. He has an appointment with cardiology at next month. Clinically looks well, nontoxic in appearance. Patient and his are comfortable with the plan of care. All questions have been sought and answered. Patient is stable for discharge. Initial ECG Impression Date: May 28, 2021 Initial ECG Impression Time: 10:08 Initial ECG Rate: 61 Initial ECG Comparisson: Changed Comment atrial paced rhythm with PA 214; qtc 561, QRS 178; Diagnostic Imaging Diagonstic Imaging: Xray Plain Films/CT/US/NM/MRI: chest Comments [facility] [place] [place] NAME: DANIELA GONZALEZ [facility] REC#: [id number] PT STATUS: REG ER : 1980 PHYSICIAN: WALESKA GERBER MD ADMIT DATE: 05/28/21/ER Draft Date of Exam:05/28/21 CHEST 1 VIEW, AP/PA ONLY INDICATION: Cardiac pacemaker, shortness of breath, cardiac enlargement COMPARISON: 05/17 Single view chest demonstrates stable cardiac enlargement. Lungs are clear. There is no pneumothorax. Pacemaker stable. Osseous structures are age-appropriate. IMPRESSION: Stable cardiac enlargement without pulmonary edema or acute infiltrate. Dictated on workstation # [id number] Dict: 05/28/21 1040 Trans: 05/28/21 1042 [facility] [phone] Interpreted by: NOE WYATT Electronically signed by: Departure Impression Primary Impression: Shortness of breath Disposition: 01 HOME, SELF-CARE Condition: Stable Departure-Patient Inst. Decision time for Depature: 12:36 Referrals: ALDA HARMON MD (PCP/Family) Primary Care Physician Patient Instructions: Shortness of Breath (Dyspnea) (DC) Add. Discharge Instructions: Continue your home daily medications as prescribed. If you have any worsening shortness of breath throughout the next 12 to 24 hours especially with cough, fever, lightheadedness or dizziness or any other concerning symptoms please come back to the emergency department for reevaluation. Please follow-up with your primary care physician this week regarding the shortness of breath today. Keep your follow-up appointment with your antique repairer. WALESKA GERBER MD May 28, 2021 09:50
--- NOTE | 2021-05-28 10:42 | Diagnostic Imaging Report ---
INDICATION: Cardiac pacemaker, shortness of breath, cardiac enlargement COMPARISON: 05/17 Single view chest demonstrates stable cardiac enlargement. Lungs are clear. There is no pneumothorax. Pacemaker stable. Osseous structures are age-appropriate. IMPRESSION: Stable cardiac enlargement without pulmonary edema or acute infiltrate. Dictated by: Dictated on workstation # [id number]
[2021-05-28 11:28] LABS: BASOPHILS % (AUTO) 0 % (0-10); EOSINOPHILS # (AUTO) 0.1 10^3/uL (0.0-0.3); EOSINOPHILS % (AUTO) 1 % (0-10); HEMATOCRIT 36 % (40-54); HEMOGLOBIN 11.7 g/dL (13.3-17.7); LYMPHOCYTES # (AUTO) 1.6 10^3/uL (1.0-4.0); LYMPHOCYTES % (AUTO) 9 % (12-44); MEAN CORPUSCULAR HEMOGLOBIN 27 pg (25-34); MEAN CORPUSCULAR HGB CONC 32 g/dL (32-36); MEAN CORPUSCULAR VOLUME 84 fL (80-99); MEAN PLATELET VOLUME 8.6 fL (9.0-12.2); MONOCYTES # (AUTO) 1.1 10^3/uL (0.0-1.0); MONOCYTES % (AUTO) 6 % (0-12); NEUTROPHILS # (AUTO) 14.7 10^3/uL (1.8-7.8); NEUTROPHILS % (AUTO) 83 % (42-75); PLATELET COUNT 349 10^3/uL (130-400); WHITE BLOOD COUNT 17.7 10^3/uL (4.3-11.0)
[2021-05-28 11:41] LABS: POTASSIUM 4.5 MMOL/L (3.6-5.0)
[2021-05-28 11:42] LABS: CALCIUM 9.4 MG/DL (8.5-10.1)
[2021-05-28 11:46] LABS: CREATININE SERUM 0.87 MG/DL (0.60-1.30)
[2021-05-28 11:58] LABS: EOSINOPHILS % (MANUAL) 1 %; LYMPHOCYTES % (MANUAL) 8 %; MONOCYTES % (MANUAL) 11 %; NEUTROPHILS % (MANUAL) 77 %; RBC MORPH NORMAL
[2021-05-28 13:09] VITALS: BP 110/85
== END 2021-05-28 10:42 | disposition home or self-care (01) ==
LOC: EDUNIT# 09:23 → ER 09:24
DX: R06.02 Shortness of breath (principal); Z20.822 Contact with and (suspected) exposure to COVID-19; Z79.82 Long term (current) use of aspirin
CPT/HCPCS: 36415; 71045; 80048; 83880; 85007; 85027; 87636; 93005

== ENCOUNTER 2022-06-18 20:35 | Emergency (ER) | payer BC ==
[~2022-06-18] VITALS: Ht 190.5 cm; Wt 95.2 kg
[2022-06-18 21:21] LABS: BASOPHILS % (AUTO) 1 % (0-10); EOSINOPHILS # (AUTO) 0.2 10^3/uL (0.0-0.3); EOSINOPHILS % (AUTO) 3 % (0-10); HEMATOCRIT 33 % (40-54); LYMPHOCYTES # (AUTO) 2.8 10^3/uL (1.0-4.0); LYMPHOCYTES % (AUTO) 35 % (12-44); MEAN CORPUSCULAR HEMOGLOBIN 28 pg (25-34); MEAN CORPUSCULAR HGB CONC 33 g/dL (32-36); MEAN CORPUSCULAR VOLUME 85 fL (80-99); MEAN PLATELET VOLUME 8.6 fL (9.0-12.2); MONOCYTES # (AUTO) 0.6 10^3/uL (0.0-1.0); MONOCYTES % (AUTO) 8 % (0-12); NEUTROPHILS # (AUTO) 4.4 10^3/uL (1.8-7.8); NEUTROPHILS % (AUTO) 54 % (42-75); PLATELET COUNT 397 10^3/uL (130-400); WHITE BLOOD COUNT 8.1 10^3/uL (4.3-11.0)
--- NOTE | 2022-06-18 21:21 | ED Cardiac General ---
History of Present Illness General Chief Complaint: Cardiac/General Problems Stated Complaint: LOC, TROUBLE BREATHING Nursing Triage Note: PT AMB TO RM 8 WITH WITH C/O DIZZINESS AND LIGHTHEADED AT HOME WHILE DOING LAUNDRY AND PT STATES HE LAID ON THE COUCH AND LOST CONSCIOUSNESS FOR APPROX 1 MIN PER . Source: patient, spouse Exam Limitations: no limitations (JARVIS YANES APRN) History of Present Illness Date Seen by Provider: Jun 18, 2022 Time Seen by Provider: 20:50 Initial Comments Patient is a 42 yo M who presents to the ED after losing conciousness shortly prior to arrival. He states he felt dizzy and laid down prior to the syncopal event occurring. His saw the episode occur and states the patient lost conciousness for approximately 1-1.5 minutes. No ictal activity reported per . EMS was called but by the time they arrived patient had regained consciousness and refused EMS transport. Pt states he is feeling better the more time that has elapsed from the event. Pt denies any CP, SOA, pedal edema. Pt has a h/o pacemaker/ICD placement after cardiac arrest related to COVID. His primary vehicle body sander is at . (JARVIS YANES APRN) Allergies and Home Medications Allergies Coded Allergies: No Known Drug Allergies (Unverified , 12/29/20) Patient Home Medication List Home Medication List Reviewed: Yes (JARVIS YANES APRN) Albuterol Sulfate (Proair Hfa) 1 Puff Puff, 1-2 PUFF INH Q4H PRN for SHORTNESS OF BREATH, (Reported) Entered as Reported by: DIANNE PERERA on 12/30/20952 Aspirin (Aspirin) 81 Mg Tab.chew, 81 MG PO DAILY, (Reported) Entered as Reported by: DIANNE PERERA on 12/30/20952 Azithromycin (Azithromycin) 250 Mg Tablet, 250 MG PO DAILY, (Reported) Entered as Reported by: DIANNE PERERA on 12/30/20952 Dexamethasone (Dexamethasone) 4 Mg Tablet, 6 MG PO DAILY, (Reported) Entered as Reported by: DIANNE PERERA on 12/30/20952 Ibuprofen (Ibuprofen) 200 Mg Tablet, 600 MG PO Q6H PRN for PAIN-MILD (1-4), (Reported) Entered as Reported by: DIANNE PERERA on 12/30/20 0958 Review of Systems Review of Systems Constitutional: no symptoms reported, see HPI EENTM: No Symptoms Reported Respiratory: No Symptoms Reported Cardiovascular: Lightheadedness, Syncope Gastrointestinal: No Symptoms Reported Skin: no symptoms reported Psychiatric/Neurological: No Symptoms Reported (JARVIS YANES APRN) Past Kjhkeay-Hnukkk-Tpsqki Hx Immunizations Up To Date First/Initial COVID19 Vaccinat: MARCH Second COVID19 Vaccination Silvio: APR (JARVIS YANES APRN) Family Medical History unknown (JARVIS YANES APRN) Physical Exam Vital Signs Vital Signs - First Documented 06/18/22 06/18/22 20:43 22:55 Temp 36.3 Pulse 58 Resp 16 B/P (MAP) 142/102 (115) Pulse Ox 95 O2 Delivery Room Air (MEEJOHNSON K DO) Vital Signs Capillary Refill : (JARVIS YANES APRN) Height, Weight, BMI Height: '" Weight: lbs. oz. kg; 26.00 BMI Method: General Appearance: No Apparent Distress, WD/WN HEENT: PERRL/EOMI, TMs Normal, Normal ENT Inspection, Pharynx Normal Neck: Full Range of Motion, Normal Inspection, Non Tender Respiratory: Chest Non Tender, Lungs Clear, Normal Breath Sounds, No Accessory Muscle Use, No Respiratory Distress Cardiovascular: Regular Rate, Rhythm, No Edema, No Gallop, No JVD, No Murmur, Normal Peripheral Pulses Gastrointestinal: Normal Bowel Sounds, No Organomegaly, No Pulsatile Mass, Non Tender Extremity: Normal Capillary Refill, Normal Inspection, Normal Range of Motion, Non Tender, No Calf Tenderness, No Pedal Edema Neurologic/Psychiatric: Alert, Oriented x3, No Motor/Sensory Deficits, Normal Mood/Affect Skin: Normal Color, Warm/Dry (JARVIS YANES APRN) Procedures/Interventions Date of ETT Placement: Dec 29, 2020 (JARVIS YANES APRN) Progress/Results/Core Measures Results/Orders Lab Results Laboratory Tests Test 06/18/22 21:14 Range/Units White Blood Count 8.1 4.3-11.0 10^3/uL Red Blood Count 3.90 L 4.30-5.52 10^6/uL Hemoglobin 11.0 L 13.3-17.7 g/dL Hematocrit 33 L 40-54 % Mean Corpuscular Volume 85 80-99 fL Mean Corpuscular Hemoglobin 28 25-34 pg Mean Corpuscular Hemoglobin Concent 33 32-36 g/dL Red Cell Distribution Width 13.4 10.0-14.5 % Platelet Count 397 130-400 10^3/uL Mean Platelet Volume 8.6 L 9.0-12.2 fL Immature Granulocyte % (Auto) 0 % Neutrophils (%) (Auto) 54 42-75 % Lymphocytes (%) (Auto) 35 12-44 % Monocytes (%) (Auto) 8 0-12 % Eosinophils (%) (Auto) 3 0-10 % Basophils (%) (Auto) 1 0-10 % Neutrophils # (Auto) 4.4 1.8-7.8 10^3/uL Lymphocytes # (Auto) 2.8 1.0-4.0 10^3/uL Monocytes # (Auto) 0.6 0.0-1.0 10^3/uL Eosinophils # (Auto) 0.2 0.0-0.3 10^3/uL Basophils # (Auto) 0.0 0.0-0.1 10^3/uL Immature Granulocyte # (Auto) 0.0 0.0-0.1 10^3/uL Prothrombin Time 14.1 12.2-14.7 SEC INR Comment 1.0 0.8-1.4 Activated Partial Thromboplast Time 36 H 24-35 SEC Sodium Level 137 135-145 MMOL/L Potassium Level 3.8 3.6-5.0 MMOL/L Chloride Level 102 98-107 MMOL/L Carbon Dioxide Level 24 21-32 MMOL/L Anion Gap 11 5-14 MMOL/L Blood Urea Nitrogen 18 7-18 MG/DL Creatinine 1.02 0.60-1.30 MG/DL Estimat Glomerular Filtration Rate 95 BUN/Creatinine Ratio 18 Glucose Level 118 H 70-105 MG/DL Calcium Level 9.0 8.5-10.1 MG/DL Corrected Calcium 9.0 8.5-10.1 MG/DL Magnesium Level 1.9 1.6-2.4 MG/DL Total Bilirubin 0.3 0.1-1.0 MG/DL Aspartate Amino Transf (AST/SGOT) 21 5-34 U/L Alanine Aminotransferase (ALT/SGPT) 19 0-55 U/L Alkaline Phosphatase 73 40-136 U/L Troponin I < 0.028 <0.028 NG/ML B-Type Natriuretic Peptide 62.3 <100.0 PG/ML Total Protein 6.6 6.4-8.2 GM/DL Albumin 4.0 3.2-4.5 GM/DL (JOHNSON CABAN DO) Vital Signs/I&O 06/18/22 06/18/22 20:43 22:55 Temp 36.3 Pulse 58 54 Resp 16 13 B/P (MAP) 142/102 (115) 126/94 Pulse Ox 95 O2 Delivery Room Air (JOHNSON CABAN DO) Blood Pressure Mean: 115 Progress Progress Note : Progress Note Patient is nontoxic and well hydrated on exam. Vital signs are reassuring. Laboratory evaluation is reassuring without elevation in troponin or BNP. Chest xray non-acute. Patient states he is feeling completely back to normal. His pacemaker ICD was interrogated and he did have a period of nonsustained v-fib that was the likely cause of his syncope. The ICD did not fire. The report states the pacemaker/ICD is working appropriately. His heart failure score is 0 according to the report. Patient desires to be discharged home. Given reassuring labs and his return to baseline this seems appropriate. Discussed importance of calling his primary vehicle body sander tomorrow to notify them of ED visit. Strict return precautions for urgent symptomology discussed. Patient and spouse verbalized understanding. (JARVIS YANES APRN) EKG : EKG Time: 20:56 Rate: 60 Rhythm: A Fib/Flutter Intervals: QT (prolonged) ECG Impression: Atrial Fibrillation (JARVIS YANES APRN) Departure Impression Primary Impression: Syncope and collapse Disposition: HOME, SELF-CARE Condition: Improved Departure-Patient Inst. Referrals: BEATA KAY MD (PCP/Family) Primary Care Physician Patient Instructions: Syncope (Fainting) ATTENDING PHYSICIAN NOTE: I WAS PHYSICALLY PRESENT ER PHYSICIAN, BUT I WAS NOT INVOLVED IN ANY DECISION MAKING OR ANY CARE OF THIS PATIENT AND I AM NOT COLLABORATING PHYSICIAN. (JOHNSON CABAN DO) JARVIS YANES APRN Jun 18, 2022 21:21 JOHNSON CABAN DO Jun 19, 2022 03:45
[2022-06-18 21:35] LABS: PROTHROMBIN TIME PATIENT 14.1 SEC (12.2-14.7)
[2022-06-18 21:41] LABS: BILIRUBIN,TOTAL 0.3 MG/DL (0.1-1.0); CREATININE SERUM 1.02 MG/DL (0.60-1.30); MAGNESIUM 1.9 MG/DL (1.6-2.4); POTASSIUM 3.8 MMOL/L (3.6-5.0); TOTAL PROTEIN 6.6 GM/DL (6.4-8.2)
--- NOTE | 2022-06-18 21:42 | Diagnostic Imaging Report ---
INDICATION: Chest pain. EXAMINATION: Chest, 06/18/2022. COMPARISON: 05/28/2021. FINDINGS: There is a left-sided pacemaker which appears unremarkable. The heart is prominent. There is a likely small hiatal hernia. Pulmonary vasculature unremarkable. Lungs and pleural spaces clear. Old left rib fracture is noted. There is no pneumothorax. IMPRESSION: Incidental findings with no acute cardiopulmonary process. Dictated by: Dictated on workstation # [id number]
[2022-06-18 22:55] VITALS: BP 126/94
== END 2022-06-18 22:50 | disposition home or self-care (01) ==
LOC: EDUNIT# 20:35 → ER 20:37
DX: R55 Syncope and collapse (principal)
CPT/HCPCS: 36415; 71045; 80053; 83735; 83880; 84484; 85025; 85610; 85730; 93005; 93041